=== PATIENT | female | born 1935 | race Caucasian/White ===

== ENCOUNTER 2016-10-27 07:27 | Emergency (ER) | payer MEDICARE, BC ==
[~2016-10-27] VITALS: Ht 162.6 cm; Wt 54.6 kg
[~2016-10-27 07:27] MED LIST: HYDR-3995 PO; OPDIVO; YERVOY
[2016-10-27 07:31] VITALS: Ht 162.6 cm; Wt 54.6 kg
--- OUTSIDE RECORDS SUMMARY | 2016-10-27 07:31 | XMS REPORT | Continuity of Care Document ---
Author Author [facility] Organization [facility] Address Unknown Phone Unavailable Support Name Relationship Address Phone LEYDA MILLER MD Caregiver [address] [place] [address] Unavailable GISELE ELDRIDGE FACS, MD Caregiver [address] [place] [address] [place] [address] Unavailable ALVA SPEARS Next Of Kin Unknown [phone] C Insurance Providers Guarantor Myra Huerta Address [address] [address] Email DENIED/NO TO PT PORT Payer [facility] Policy Number [id number] Subscriber's Name DeannaCharlesMyra J Relationship 18 Self Group Number [id number] Effective Date 08 Payer Medicare Policy Number [id number] Subscriber's Name Charles Huertalinoel Mckeon Relationship 18 Self Effective Date 99 Advance Directives Directive Response Recorded Date/Time Ordered Resuscitation Status Full Code 03/05/16 2:54pm Resuscitation Documents on File No 03/06/16 10:04am DPOA for Healthcare Only Yes 03/06/16 10:04am Living Will Yes 03/06/16 10:04am Problems No problem information available. Medications Current Home Medications Medication Dose Units Route Directions Days Qty Instructions Start Date Hydrocodone/Acetaminophen (Hydrocodon-Acetaminophn 10-325) 10-325 Tablet 1 Tab Oral Every 4 Hours Prn 60 03/05/16 Opdivo Every 2 Weeks 03/06/16 Yervoy 03/06/16 Social History Social History Problem Response Recorded Date/Time Onset Date Status Reason for Hospitalization POWER PORT PLACEMENT 03/06/2016 12:52pm Not Applicable Not Applicable Chewing Tobacco Status No 03/06/2016 10:19am Not Applicable Not Applicable Hx Substance Use No 03/06/2016 10:19am Not Applicable Not Applicable Hx Alcohol Use No 03/06/2016 10:19am Not Applicable Not Applicable Has the pt used tobacco in the last 12 months Yes 03/06/2016 10:19am Not Applicable Not Applicable Query Response Start Date Stop Date Smoking Status Former smoker Hospital Discharge Instructions Instructions: Care Instructions: I was in the hospital because (patient own words): "place a catheter in my chest" Discharge Diet: regular Discharge Activity: As tolerated. May shower Follow Up Appointments: Follow up with Jade Mazin ROLAND March 17 at 10:00 Pending Lab / Results: No Pending Lab Expected Signs/Symptoms: tenderness over the port, occasional bruising. Notify Physician If: 1. Call your surgeon if you are having problems relating to your surgery at [phone]. 2. Problems such as: Temp above 101.5 degrees You develop redness, excessive swelling of the incision, increasing pain or excessive foul smelling drainage. 3. If the office is closed, call [facility] at [phone] and have your Surgeon paged. During Business Hours:: Call your surgeon at at [phone]. After Business Hours:: If the office is closed, call [facility] at [phone] and have your Surgeon paged. Pain Management/Treatment: Follow prescriptions as prescribed Wound/Incision Care: Leave incision open to air. Do not rub or pick off the glue. Condition at time of discharge: Good Plan of Care Discharge Date 03/06/16 12:20pm Instructions/Education Provided DI for Implanted Venous Access Port Prescriptions See Medication Section Functional Status Query Response Date Recorded Ability to complete ADL's impeded by No change March 06, 2016 10:04am Allergies, Adverse Reactions, Alerts No known allergies. Immunizations Query Response on File Recorded Date/Time Hx Influenza Vaccination No 03/06/16 10:19am Hx Pneumococcal Vaccination No 03/06/16 10:19am Hx Influenza Vaccination No 03/06/16 10:19am Vital Signs Acute Vital Signs Vital Response Date/Time Temperature (Fahrenheit) 97.2 deg F (96.8 - 99.1) 03/06/2016 12:35pm Temperature (Calculated Celsius) 36.52565 degrees C (36.0 - 37.3) 03/06/2016 12:35pm Temperature Source Temporal 03/06/2016 12:35pm Pulse Rate (adult) 80 bpm (60 - 100) 03/06/2016 1:05pm Respiratory Rate 15 breaths/min (10 - 20) 03/06/2016 1:05pm O2 Sat by Pulse Oximetry 92 % (90 - 100) 03/06/2016 1:05pm Oxygen Delivery Method Room Air 03/06/2016 1:05pm Blood Pressure 135/65 mm Hg 03/06/2016 1:05pm Blood Pressure Source Automatic Cuff 03/06/2016 1:05pm Height (Feet) 5 feet 03/06/2016 9:40am Height (Inches) 4.00 inches 03/06/2016 9:40am Weight (Kilograms) 46.500 kg 03/06/2016 9:40am Body Mass Index (BMI) 17.6 03/06/2016 9:40am Results Laboratory Results Test Name Result Units Flags Reference Collection Date/Time Result Date/ Time Comments White Blood Count 7.5 T/MM3 4.5-11.0 03/06/2016 9:47am 03/06/2016 9: 54am Red Blood Count 4.73 M/MM3 4.00-5.20 03/06/2016 9:47am 03/06/2016 9: 54am Hemoglobin 12.4 GM/DL 12-16 03/06/2016 9:47am 03/06/2016 9:54am Hematocrit 40.2 % 36-46 03/06/2016 9:47am 03/06/2016 9:54am Mean Corpuscular Volume 85.0 UM3 80-100 03/06/2016 9:47am 03/06/2016 9: 54am Mean Corpuscular Hemoglobin 26.2 UUG 26-34 03/06/2016 9:47am 2015 9:54am Mean Corpuscular Hemoglobin Concent 30.8 GM/DL L 31-37 03/06/2016 9:47am 03/06/2016 9:54am RDW Standard Deviation 41.9 FL 36.9-50.2 03/06/2016 9:47am 03/06/2016 9 :54am Platelet Count 331 T/MM3 130-400 03/06/2016 9:47am 03/06/2016 9:54am Mean Platelet Volume 10.6 UM3 9.4-12.4 03/06/2016 9:47am 03/06/2016 9: 54am Neutrophils (%) (Auto) 71.7 % H 33-66 03/06/2016 9:47am 03/06/2016 9: 54am Lymphocytes (%) (Auto) 14.5 % L 23-45 03/06/2016 9:47am 03/06/2016 9: 54am Monocytes (%) (Auto) 8.6 % 0-9.0 03/06/2016 9:47am 03/06/2016 9:54am Eosinophils (%) (Auto) 4.0 % 0-4 03/06/2016 9:47am 03/06/2016 9:54am Basophils (%) (Auto) 1.1 % 0-2 03/06/2016 9:47am 03/06/2016 9:54am Immature Granulocyte % (Auto) 0.1 % 0.0-0.5 03/06/2016 9:47am 2015 9:54am Absolute Neutrophils (auto) 5.3 T/MM3 1.8-7.7 03/06/2016 9:47am 2015 9:54am Absolute Lymphocytes (auto) 1.1 T/MM3 1-4.8 03/06/2016 9:47am 2015 9:54am Absolute Monocytes (auto) 0.6 T/MM3 0-0.8 03/06/2016 9:47am 03/06/2016 9:54am Absolute Eosinophils (auto) 0.3 T/MM3 0-0.5 03/06/2016 9:47am 2015 9:54am Absolute Basophils (auto) 0.1 T/MM3 0-0.2 03/06/2016 9:47am 03/06/2016 9:54am Absolute Immature Granulocyte (auto 0.01 T/MM3 0.00-0.03 03/06/2016 9: 47am 03/06/2016 9:54am Name: MYRA HUERTA Unit #: [id number] : 1935 Sex: F Admit Date: Loc / Svc: NSC Discharge Date: DIAGNOSTIC IMAGING REPORT Report #: [id number] [facility] [place] Indication: ITS.REASON: POWER PORT INSERTION PROCEDURE: PORTACATH W FLUORO W 1V CXR: Encounter: Initial Comparison: Chest CT dated December 03, 2015 Findings: New right internal jugular approach central venous port catheter in place with the tip projecting over the mid SVC. No pneumothorax. Large area of consolidation in the superior segment left lower lobe due to a mass better seen on the prior CT. The remaining lung mcconnell are clear. No pleural effusion. Heart size is normal. Left hilar prominence due to the mediastinal adenopathy. Impression: New right IJ port as above. . Procedures Procedure Status Date Provider(s) BONE IMAGING WHOLE BODY Completed 12/16/15 [id number]"TECHNETIUM TC-99M MEDRONATE, DIAGNOSTIC, PER STUDY DO Completed Insertion of vascular catheter Completed 03/06/16 GISELE ELDRIDGE MD, FACS , CWS Encounters Encounter Location Arrival/Admit Date Discharge/Depart Date Attending Provider Departed Surgical Day Care [facility] 03/06/16 9:25am 03/06/16 12 :20pm GISELE ELDRIDGE FACSS Registered [facility] 12/16/15 8:11am ERYN AL MD
--- OUTSIDE RECORDS SUMMARY | 2016-10-27 07:31 | XMS REPORT | Referral Summary ---
Author Author [facility] Organization [facility] Address Unknown Phone Unavailable Care Team Providers Care Video Clerk Name Role Phone Matthew Miller Primary Care Physician [phone] Encounter VC Date(s): 03/17/16 - 03/17/16 [facility] [address] [place] [address] [place] [id number] Discharge Diagnosis: Post-operative state Discharge Disposition: 01-Home or Self Care Attending Physician: Jade Retana APRN Admitting Physician: Jade Retana APRN Vital Signs Most recent to 1 oldest [Reference Range]: Temperature Tympanic 36.4 degC [36.6-38.1 degC] *LOW* (03/17/16 10:06 AM) Problem List Condition Effective Dates Status Health Status Informant Lung Active cancer(Confirmed) Nausea(Confirmed) Active Allergies, Adverse Reactions, Alerts No Known Medication Allergies Medications Opdivo 10 mg/mL intravenous solution See Instructions, IV q2wk UNKNOWN DOSE, 0 Refill(s) Start Date: 02/18/16 Status: Ordered Vitamin D3 1,000 Intl_Units, Oral, Daily, 0 Refill(s) Start Date: 02/18/16 Status: Ordered Xgeva 120 mg/1.7 mL subcutaneous solution 120 mg 1.7 mL, SubCutaneous, q4wk, # 1.7 mL, 0 Refill(s) Start Date: 02/18/16 Status: Ordered Yervoy See Instructions, 10 mg/kg IV q 2 WEEKS, 0 Refill(s) Start Date: 02/18/16 Status: Ordered Results No data available for this section Immunizations No data available for this section Procedures Procedure Date Related Diagnosis Body Site Insertion of implantable venous access port1 03/06/16 Hysterectomy 1995 1lung cancer Social History Social History Type Response Smoking Status Former smoker; Number of years: 49 Assessment and Plan Extracted from: Title: Office Visit Note Author: Jade Retana CAR TRACER Date: 03/17/16 Assessment/Plan 1.Post-operative state Port site looks great. Continue with oncology careas directed and follow-up with us on a when necessary basis. Ordered: Postoperative Est [id number]
--- OUTSIDE RECORDS SUMMARY | 2016-10-27 07:31 | XMS REPORT | Referral Summary ---
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, bronchus and lung Discharge Disposition: 01-Home or Self Care Attending Physician: Ayaz Kraft MD Admitting Physician: Ayaz Kraft MD Referring Physician: Louie Al MD Vital Signs Most recent to 1 oldest [Reference Range]: Temperature Tympanic 36.3 degC [36.6-38.1 degC] *LOW* (02/18/16 4:15 PM) Peripheral Pulse 88 bpm Rate [60-100 bpm] (02/18/16 4:15 PM) Blood Pressure 102/54 mmHg [90-140/60-90 mmHg] (02/18/16 4:15 PM) Problem List Condition Effective Dates Status Health Status Informant Lung Active cancer(Confirmed) Nausea(Confirmed) Active Allergies, Adverse Reactions, Alerts No Known Medication Allergies Medications Misc Prescription TAKES 2 PILLS NEEDED FOR BOWELS UNKNOWN MED., 0 Refill(s) Start Date: 02/18/16 Status: Ordered multivitamin Daily, 1 QD, 0 Refill(s) Start Date: 02/18/16 Status: Ordered [place] 10 mg-325 mg oral tablet 1 tabs, Oral, q6hr, as needed for pain, DR. AL, 0 Refill(s) Start Date: 02/18/16 Status: Ordered Opdivo 10 mg/mL intravenous solution See Instructions, [...] Procedures Procedure Date Related Diagnosis Body Site Hysterectomy 1995 Social History Social History Type Response Smoking Status Former smoker; Number of years: 49 Assessment and Plan Extracted from: Title: Office Visit Note Author: Ayaz Kraft MD Date: 02/18/16 Assessment/Plan 1.Lung cancer, Neoplasm of uncertain behavior of trachea, bronchus and lung Ordered: Office Visit Level 4 New [id number] Plan: Insertion of Power PortCatheter: I did review the patient's chart including a note from her oncologist from January 29, 2016. I informed the patient that I would concur that she would benefit from placement of a power port catheter to facilitate herongoing chemotherapy. I showed the patient an actual Power Port catheter for illustration purposes. I discussed with the patientand her daughters in detail what insertion of a power port catheter entailed and its associated risks including but not inclusive of bleeding, infection, and potential for pneumothorax. The patient understood and was subsequently scheduled for placement of Power Port.
[2016-10-27] MEDS ORDERED: CALCIUM (07:39)
[2016-10-27] MEDS ORDERED: MAGN400C PO (07:39)
[2016-10-27] MEDS ORDERED: CHOL400C7 (07:39)
[2016-10-27] MEDS ORDERED: ONDANSETRON 4mg/2ml INJECTION IV ONE (08:15)
[2016-10-27] MEDS ORDERED: NORMAL SALINE 500 ML IV ONE (08:15)
[2016-10-27 08:28] LABS: HCT - HEMATOCRIT 31.8 % (36-46); HGB - HEMOGLOBIN 9.9 GM/DL (12-16); MEAN CORPUSCULAR HGB 27.5 UUG (26-34); MEAN CORPUSCULAR HGB CONC(MCHC 31.1 GM/DL (31-37); MEAN CORPUSCULAR VOLUME 88.3 UM3 (80-100); MEAN PLATELET VOLUME 10.4 UM3 (9.4-12.4); WBC - WHITE BLOOD COUNT 8.7 T/MM3 (4.5-11.0)
[2016-10-27] MEDS ORDERED: FENTANYL 100mcg/2ml INJECTION IV ONE ×2 (08:30→09:30)
[2016-10-27 08:38] LABS: ALBUMIN 4.1 G/DL (3.5-5.0); ALBUMIN/GLOBULIN RATIO 1.2 RATIO (1.1-2.2); ALKALINE PHOSPHATASE 76 U/L (38-126); ALT (SGPT) 35 U/L (9-52); ANION GAP 15 MEQ/L (5-15); AST (SGOT) 23 U/L (14-36); BUN/CREATININE RATIO 19 RATIO (6-26); CALCIUM 9.3 MG/DL (8.4-10.2); CHLORIDE 99 MEQ/L (98-107); CO2 - CARBON DIOXIDE 28 MEQ/L (22-30); CREATININE 1.2 MG/DL (0.7-1.2); GLOMERULAR FILTRATION RATE 43; GLUCOSE 162 MG/DL (65-110); LIPASE 50 U/L (23-300); POTASSIUM 3.9 MEQ/L (3.6-5); SODIUM 142 MEQ/L (134-144); TOTAL PROTEIN 7.5 G/DL (6.3-8.2)
--- NOTE | 2016-10-27 08:41 | NUR ---
STATUS NAUSEA GONE AFTER ZOFRAN. PAIN IMPROVING AT 3/10 AFTER FENTANYL. O2 STARTED FOR LOW SAO2. UP TO 96 % AFTER O2 STARTED
--- NOTE | 2016-10-27 08:50 | NUR ---
ACTIVITY UP TO COMMODE
[2016-10-27 08:57] LABS: BAND NEUTROPHILS # 0.1 T/MM3; LYMPHOCYTES # (MANUAL) 0.5 T/MM3 (1-4.8); MONOCYTES # (MANUAL) 0.6 T/MM3 (0-0.8); NEUTROPHILS #(MANUAL)-ABSOLUTE 7.5 T/MM3 (1.8-7.7); TOTAL CELLS COUNTED 100 %
--- NOTE | 2016-10-27 09:03 | NUR ---
TO CT PER CART
[2016-10-27 09:20] LABS: COLOR,URINE RED (YELLOW); LEUKOCYTE ESTERASE ,URINE NEGATIVE (NEGATIVE); NITRITE,URINE NEGATIVE (NEGATIVE); UROBILINOGEN,URINE NORMAL (NORMAL)
[2016-10-27 09:21] LABS: BLOOD, URINE 3+ (NEGATIVE)
[2016-10-27 09:22] LABS: RBC,URINE TNTC /HPF (0-3); WBC CLUMPS,URINE NONE SEEN; WBC,URINE NONE SEEN /HPF (0-5)
[2016-10-27 09:23] LABS: BACTERIA,URINE NONE SEEN (NEGATIVE); SQUAMOUS EPITHELIAL CELL,UR NONE SEEN
--- NOTE | 2016-10-27 09:25 | DI ---
Indication: ITS.REASON: Right flank pain with hematuria for two weeks PROCEDURE: CT RENAL W/O CONTRAST: Encounter: Initial Comparison: Chest CT dated December 03, 2015 Technique: Axial CT images were performed through the abdomen and pelvis without intravenous contrast. Coronal and sagittal two-dimensional reformats. Automated Exposure Control and Iterative Reconstruction dose reducing techniques were utilized. Findings: Significant airspace consolidation in the left lower lobe with a small pleural effusion and air bronchograms. Right middle lobe airspace consolidation as well peripherally. Heart size is mildly enlarged. Trace pericardial effusion. The unenhanced liver is grossly normal. Stone debris in the gallbladder. The spleen, pancreas and adrenal glands are grossly normal. Left kidney is within normal limits. Right kidney shows severe hydronephrosis with high attenuation material in the collecting system consistent with hemorrhage. There is a 3 to 4 mm lower pole area stone. Perinephric stranding. Dense material seen throughout the right ureter into the bladder consistent with hemorrhage. Bladder shows no focal wall thickening. Uterus is absent. No evidence of a bowel obstruction. Bone windows show degenerative changes in the spine. Impression: 1. Left lower and right middle lobe consolidation could be due to pneumonia. 2. Significant right hydronephrosis with evidence of acute hemorrhage in the right renal collecting system. Etiology for the hemorrhage is unclear and could be spontaneous, due to trauma or potentially mass/metastasis. Urologic evaluation is recommended. .
--- NOTE | 2016-10-27 09:35 | NUR ---
DR AGUILERA IN
--- NOTE | 2016-10-27 09:37 | ERPDOC ---
Departure Disposition Decision Date: October 27, 2016 Disposition Decision Time: 10:00 Disposition: 02 TO [facility] Impression Impression Impression: Primary Impression: Hematuria Additional Impression: Pneumonia Pneumonia type: due to unspecified organism Laterality: unspecified laterality Lung location: unspecified part of lung Qualified Codes: J18.9 - Pneumonia, unspecified organism Severity: Moderate Condition: Improved Seen By: Physician only Referrals: LEYDA TRACEY MD (Family) Problems/Meds/Labs Reviewed?: Yes Medications reviewed and manag: Yes Follow up care ordered?: Yes Mental Status: Alert, Oriented HPI - General Medical General Chief Complaint: Flank Pain Stated Complaint: URINATING BLOOD, RIGHT SIDE PAIN Time Seen by Provider: 07:28 Source: patient Exam Limitations: no limitations HPI - General Medical Initial Comments 81-year-old female presents to the emergency department with a chief complaint of blood in her urine and right sided flank discomfort. Patient noted onset of symptoms intermittently over the past couple of weeks. Symptoms increased 3 days ago and been persistent in nature since. Pain is moderate. No radiation. Pain is dull. She does not note any exacerbating or remitting factors. Patient is not anticoagulated. She denies any other complaints or associated symptoms. She was at home when her symptoms began. Symptoms have been persistent in nature since onset. Patient currently is on chemotherapy treatment for lung cancer. Occurred At: home Onset: Gradual Allergies: Coded Allergies: No Known Allergies (Unverified , 03/06/16) Past History Patient Surgical History Port placement Past Medical History Metabolic: cancer Family History Family History: Negative Vaccines Hx Influenza Vaccination: No Hx Pneumococcal Vaccination: No Social History Smoking Status: Never smoker Does patient use chewing tobac: No Second Hand Exposure: No Substance Use Type: does not use Alcohol Intake: none Review of Systems Constitutional Constitutional: DENIES: chills, fever Eyes General: DENIES: erythema, exudate Lids/Accessories: DENIES: erythema, swelling Vision: DENIES: acuity, blurring ENMT Ears: DENIES: drainage, erythema Hearing: DENIES: hearing loss Balance: DENIES: ataxia, falling to one side Sinuses: DENIES: congestion, pain Nose: DENIES: nosebleeds, pain Mouth/Throat: DENIES: painful swallowing, sore throat Teeth: DENIES: pain Jaw: DENIES: pain Cardiovascular Cardiac: DENIES: chest pain, dyspnea on exertion Rhythm/Rate: DENIES: irregular beat, palpitations Vascular: DENIES: pedal edema, unilateral swelling Pulmonary Respiratory: DENIES: cough, dyspnea, pleuritic chest pain, sputum GI Upper Abdomen: DENIES: nausea, pain, vomiting Lower Abdomen: DENIES: diarrhea, pain General: hematuria, DENIES: dysuria Musculoskeletal General: DENIES: joint pain, tenderness Integumentary Skin: DENIES: itching, rash Neurological General: DENIES: change in strength, headache, numbness, weakness Psychiatric Psychiatric: DENIES: emotional instability, suicidal ideation/attempt Endocrine Endocrine: DENIES: polydipsia, polyphagia Hematologic/Lymphatic Hematologic/Lymphatic: DENIES: frequent nosebleeds, lymphadenopathy Allergic/Immunological Allergic/Immunoligical: DENIES: allergic reactions, hives Physical Exam General General Nourishment: well nourished, well developed, appears stated age, no acute distress, adult General Body Habitus: well groomed Vitals and Pain First Documented Vital Signs Date Time Temp Pulse Resp B/P Pulse Ox O2 Delivery O2 Flow Rate FiO2 10/27/16 07:31 98.1 87 16 186/95 95 Room Air 10/27/16 08:41 2.00 Weight: Kilograms: 54.600 Height (feet): 5 Height (inches): 4.00 Triage Pain Scale: RN VS reviewed by Provider: Yes Normal Exams: Head: Normocephalic w/o trauma Eyes: Pupils are PERRLA w/ EOMI, No scleral icterus, irritation, or foreign bodies noted ENMT: No facial trauma, nasal exudates, pharyngeal erythema, or exudates are noted Dental: No fractured, loose, or missing teeth noted Neck: Full range of motion, without adenopathy, JVD, bruits or thyromegaly Chest/Resp: Clear all mcconnell, with good airflow, and symmetry bilaterally CV: Regular rate and rhythm, without murmur or gallop, Pulses 2+ all extremities, capillary refill, <2 seconds all ext., no pedal edema noted Abdomen: Bowel sounds positive, soft, non-tender, non-distended, no hepatosplenomegaly, masses or bruits noted Lymphatic: No lymphadenopathy, or lymphedema noted Musculoskeletal: No tenderness, or deformity noted, good range of motion, all extremities Integumentary: No rashes, hives, or bruising noted, hair and nails, without abnormality Neurologic: Patient is alert, and oriented, cranial nerves, motor/sensory/ cerebellar, exams w/o gross deficits, to observation Psychiatric: Patient exhibits, appropriate attention, emotion and affect Differential Diagnoses Considering: Medication Effect, Metabolic, UTI, Other (renal stone) Progress Results/Orders Orders Procedure Category Date Status Time Cbc W/Auto LAB 10/27/16 Complete Diff-Reflex Manual Cmp - Comprehensive LAB 10/27/16 Complete Metabolic Lipase LAB 10/27/16 Complete EKG EKG 10/27/16 Taken Iv Lock (Ed Only) EDM 10/27/16 Transmitted 08:06 Ondansetron Inj PHA 10/27/16 Complete (Zofran) 08:15 Normal Saline (Ns) PHA 10/27/16 Complete 08:15 Fentanyl (Fentanyl) PHA 10/27/16 Complete 08:30 Ct Renal W/O Contrast CT 10/27/16 Resulted 08:56 UA, LAB 10/27/16 Complete Dip&Micro(Complete) & 08:45 Fentanyl (Fentanyl) PHA 10/27/16 Complete 09:30 Blood Culture MICHEL 10/27/16 In Process 10:07 Lactate - Lactic Acid LAB 10/27/16 Complete Procalcitonin LAB 10/27/16 Complete 10:07 Levofloxacin 750 Mg PHA 10/27/16 Complete Ivpb (Levaquin 750 M 11:00 Lab Results Laboratory Tests Test 10/27/16 08:22 10/27/16 08:45 10/27/16 10:19 White Blood Count 8.7T/MM3 Red Blood Count 3.60M/MM3 Hemoglobin 9.9GM/DL Hematocrit 31.8% Mean Corpuscular Volume 88.3UM3 Mean Corpuscular Hemoglobin 27.5UUG Mean Corpuscular Hemoglobin Concent 31.1GM/DL RDW Standard Deviation 44.6FL Platelet Count 250T/MM3 Mean Platelet Volume 10.4UM3 Immature Granulocyte % (Auto) % Neutrophils (%) (Auto) % Lymphocytes (%) (Auto) % Monocytes (%) (Auto) % Eosinophils (%) (Auto) % Basophils (%) (Auto) % Absolute Immature Granulocyte (auto T/MM3 Absolute Neutrophils (auto) T/MM3 Absolute Lymphocytes (auto) T/MM3 Absolute Monocytes (auto) T/MM3 Absolute Eosinophils (auto) T/MM3 Absolute Basophils (auto) T/MM3 Neutrophils % (Manual) 86.0% Band Neutrophils % 1.0% Lymphocytes % (Manual) 6.0% Monocytes % (Manual) 7.0% Absolute Neutrophils (Manual) 7.5T/MM3 Band Neutrophils # 0.1T/MM3 Lymphocytes # (Manual) 0.5T/MM3 Monocytes # (Manual) 0.6T/MM3 Red Cell Morphology Comment Normal Turbidity < 20 Sodium Level 142MEQ/L Potassium Level 3.9MEQ/L Chloride Level 99MEQ/L Carbon Dioxide Level 28MEQ/L Anion Gap 15MEQ/L Blood Urea Nitrogen 23.0MG/DL Creatinine 1.2MG/DL Glomerular Filtration Rate Calc 43 BUN/Creatinine Ratio 19RATIO Glucose Level 162MG/DL Calculated Osmolality 281MOSM/KG Calcium Level 9.3MG/DL Total Bilirubin 0.60MG/DL Icterus Index < 2 Aspartate Amino Transf (AST/SGOT) 23U/L Alanine Aminotransferase (ALT/SGPT) 35U/L Alkaline Phosphatase 76U/L Total Protein 7.5G/DL Albumin 4.1G/DL Globulin 3.4G/DL Albumin/Globulin Ratio 1.2RATIO Lipase 50U/L Chemistry Specimen Hemolysis < 15 Urine Collection Type Urine Color Red Urine Turbidity Cloudy Urine pH 6.0 Urine Specific [place] 1.010 Urine Protein Trace Urine Glucose (UA) Negative Urine Ketones Negative Urine Blood 3+ Urine Nitrite Negative Urine Bilirubin Negative Urine Urobilinogen NormalEU/DL Urine Leukocyte Esterase Negative Urine RBC Tntc/HPF Urine WBC None seen/HPF Urine WBC Clumps None seen Urine Squamous Epithelial Cells None seen Urine Bacteria None seen Urine Culture Indicated Cult not indicated Plasma Lactate 0.7MMOL/L Procalcitonin < 0.05NG/ML Medications Current ED Medications Ondansetron HCl 4 mg 4 mg O ONCE IV Last administered on 10/27/16 08:31; Start 10/27/16 at 08:15; Stop 10/27/16 at 08:16; Status DC Sodium Chloride (NS) 500 ml @ 999 mls/hr Q31M ONCE IV Last administered on 08:30; Start 10/27/16 at 08:15; Stop 10/27/16 at 08:45; Status DC Fentanyl (Fentanyl) 25 mcg O ONCE IV Last administered on 10/27/16 08:34; Start 10/27/16 at 08:30; Stop 10/27/16 at 08:31; Status DC Fentanyl 25 mcg 25 mcg O ONCE IV Last administered on 10/27/16 09:32; Start 10/27/16 at 09:30; Stop 10/27/16 at 09:31; Status DC Levofloxacin/ Dextrose/Water (LEVAQUIN 750 mg IVPB/D5W) 150 ml @ 100 mls/hr O ONCE IV Last administered on 10/27/16 11:06; Start 10/27/16 at 11:00; Stop at 12:16; Status DC Progress Progress Labs / imaging were discussed in detail with the patient and family and questions are answered. Patient is given analgesic pain medication. She is given IV hydration. She is given parental antiemetic medication with improvement of symptoms. She is started on Levaquin 750 mg IV times one after the CT is reviewed and sepsis is considered at 1059. Patient is discussed with Dr. Mendiola who is not comfortable keeping the patient at [facility] due to lack of urology coverage. His recommendation is to transfer the patient to [facility]. Patient and family are in agreement with the current plan of management. Patient is transferred in improved condition. She is in agreement with the current plan of management. Risk versus benefit of transfer was discussed in detail with the patient and family and questions are answered. Patient is accepted by Dr. Unique Marcial at [facility]. No further orders from accepting physician who is in agreement with the current plan of management. EKG EKG : Rate: 60-100 Rhythm: sinus [place]: normal QRS: RBBB ST/T: normal Interpreted by: signing physician CT CT : CT: Abd/Pelvis no contrast Interpretation: Abnormal (suspicious findings for bilateral pneumonia. Hemorrhage of the urinary tract with unknown cause.) IMELDA AGUILERA DO October 27, 2016 09:37
[2016-10-27] MEDS ORDERED: LEVOFLOXACIN 750 mg IVPB 750 MG in D5W 150 ML IV ONE (11:00)
--- NOTE | 2016-10-27 11:16 | NUR ---
[facility] NURSE CONTACTED [facility] TO CALL REPORT. REQUESTED TO CALL BACK IN FEW MINUTES
--- NOTE | 2016-10-27 11:30 | NUR ---
PHONE REPORT TO BRIDGER VILLASEÑOR. PT WILL GO TO [phone]
[2016-10-27 11:47] VITALS: BP 198/82; PULSE 78; RESP 16; TEMP 99; O2SAT 99
--- NOTE | 2016-10-27 11:47 | NUR ---
[facility] PER [facility]
== END 2016-10-27 11:47 | disposition short-term general hospital (02) ==
LOC: ED 07:27
DX: R31.9 Hematuria, unspecified (principal); J18.9 Pneumonia, unspecified organism
CPT/HCPCS: 36415; 74176; 80053; 81001; 83605; 83690; 84145; 85025; 87040; 93005; 96361; 96365; 96375; 96376; 99285; J1956; J2405; J3010; J7060

== ENCOUNTER 2017-12-02 10:55 | Inpatient (IN) ==
[2017-12-02] MEDS ORDERED: NS 1,000 ML IV SCH (11:30)
--- NOTE | 2017-12-02 11:36 | Emergency Department Report ---
GI Bleed HPI - General Chief complaint: Medical Emergency Stated complaint: blood testing Time Seen by Provider: 12/02/17 11:17 Source: patient, family, RN notes reviewed, old records reviewed, other ( Oncologist) Mode of arrival: ambulatory Limitations: no limitations - History of Present Illness HPI Narrative: 82yo woman presents to the ER for evaluation of dyspnea. Pts friend has been helping her get up/around. Today, while getting to the bathroom, pt became severely tachypneic and dyspneic. Pt is being treated with chemo by Dr. Rushing for lung cancer. Six weeks ago, she was admitted to the hospital for txfusion of 3units PRBCs. Pts friends called Dr. Rushing's office, then brought her to the ER for further evaluation. On further review, pt has had melena and 'bloody diarrhea' several times over the past few days. MD complaint: melena, gross hematochezia Onset (ago): day(s) Consistency: intermittent Severity: similar to previous episodes Relieving factors: rest Exacerbating factors: movement Context: history of GI bleed Associated symptoms: weakness Treatments Prior to Arrival: none - Related Data Home Medications Medication Instructions Recorded Confirmed folic acid 1 mg tablet 1 mg PO DAILY 07/29/17 12/02/17 Allergies Allergy/AdvReac Type Severity Reaction Status Date / Time No Known Allergies Allergy Verified 12/02/17 11:41 Review of Systems All systems: reviewed and negative except as stated Constitutional: Reports: as per HPI, weakness. Denies: fever, chills, weight change, night sweats Gastrointestinal: Reports: as per HPI, melena, hematochezia. Denies: abdominal pain, nausea, vomiting, diarrhea, constipation, hematemesis PFS Patient Stated Medical History Transient Ischemic Attacks ( Yes: RECALLED IN PAST MEDICAL; PT DENIES TIA) Cataracts Yes: bilateral Heart Murmur Yes: RECALLED IN PAST MEDICAL; PT DENIES Sleep Apnea No Anemia Yes: CHEMO TREATMENT RELATED Blood Disorders Yes: low platelet r/t Chemo Shingles Yes Chemotherapy Yes Clinic Medical History (Last Reviewed 09/21/17 @ 10:11 by Tara France) AMD (age related macular degeneration) (Acute Medical) Cataracts, both eyes (Acute Medical) Hypercholesteremia (Chronic Medical) Lung cancer (Chronic Medical) diagnosed in 2016, sees (port-a-cath, treatment every other Wedn), states she is in a study Surgical History: Hysterectomy (2001). Appendectomy (2001). Right cataract removal: 09/15/17 Family History: Family History (Last Reviewed 09/21/17 @ 10:11 by Tara France) Father , age 67 Cancer of lung Mother No problems noted. Unknown , 4 healthy siblings age 40 (MVA) No problems noted. - Social History Smoking status: Former smoker second hand exposure: No Alcohol intake frequency: does not drink Current occupational status: retired Does patient use chewing tobacco?: No Physical Exam - Limitations Limitations: no limitations - General General appearance: alert, in no apparent distress, cachectic - Head Head exam: atraumatic, normocephalic, normal inspection - Eye Eye exam: Present: normal appearance, PERRL, EOMI. Absent: scleral icterus - ENT ENT exam: Present: normal exam, normal oropharynx, mucous membranes moist, normal external ear exam - Neck Neck exam: Present: normal inspection, full ROM, trachea midline. Absent: tenderness, lymphadenopathy - Chest Chest inspection: Present: normal inspection, symmetric chest wall rise. Absent : tenderness, rash - Respiratory Respiratory exam: Present: normal lung sounds bilaterally. Absent: respiratory distress, wheezes, stridor, prolonged expiratory phase, crackles - Cardiovascular Cardiovascular exam: Present: normal rhythm, tachycardia, normal heart sounds. Absent: rubs, gallop, clicks - Abdominal Exam Abdominal exam: Present: soft, normal bowel sounds. Absent: distention, tenderness, guarding, rebound, rigidity - Extremities Exam Extremities exam: Present: normal inspection, full ROM, normal capillary refill. Absent: tenderness, pedal edema - Skin Skin exam: Present: warm, dry, intact, pallor. Absent: rash - Neurological Exam Neurological exam: Present: alert, oriented X3, CN II-XII intact, normal gait, reflexes normal - Psychiatric Psychiatric exam: Present: normal affect, normal mood Course - Consultations Consultation #1: Hospitalist: Will admit for anemia/thrombocytopenia/borderline neutropenia and PNA. Time: 12:22 GI Bleed - [facility] Narrative Medical decision making narrative: Pt to be admitted for her numerous abn blood findings and PNA. - Differential Diagnosis Likely: esophageal varices, gastritis, Upper gastrointestinal hemorrhage, Lower gastrointestinal hemorrhage, hematochezia, melena - Medical Records Attestation: I reviewed the patient's medical records. - Lab Data Attestation: I reviewed the patient's lab results. Result diagrams: 12/02/17 11:34 12/02/17 11:34 - Radiology Data Attestation: I reviewed the patient's radiology results. CXR: Impression: Right upper lobe pneumonia. Disposition Clinical Impression: Thrombocytopenia Anemia Qualifiers: Anemia type: iron deficiency Iron deficiency anemia type: chronic blood loss Qualified Code(s): D50.0 - Iron deficiency anemia secondary to blood loss ( chronic) Pneumonia Qualifiers: Pneumonia type: due to unspecified organism Laterality: right Lung location: upper lobe of lung Qualified Code(s): J18.1 - Lobar pneumonia, unspecified organism Disposition: 02 To [facility] Acute Care Print Language: Croatian Condition: Stable Prescriptions: No Action folic acid 1 mg tablet 1 mg PO DAILY Referrals: Jackelyn Horton PA [Primary Care Provider] - Time of Disposition: 12:39 - Seen By: physician
[2017-12-02] MEDS: SALINE FLUSH 10ml SYRINGE IVF PRN ×3 (11:43→21:58)
--- NOTE | 2017-12-02 12:02 | XRay Report ---
Indication: Dyspnea PROCEDURE: XR chest 1V: Encounter: Initial Comparison: Chest CT dated April 07, 2017 Findings: Emphysema with postoperative changes, scarring and volume loss in the left lung. Left hilar retraction. Right IJ port catheter in place. No pneumothorax. Right upper lobe airspace consolidation. Heart size and mediastinal contours are stable. Pulmonary vascularity appears normal. Impression: Right upper lobe pneumonia. .
[2017-12-02] MEDS ORDERED: NS 1,000 ML IV ONE (12:20)
[2017-12-02] MEDS ORDERED: LEVOFLOXACIN PB 750 MG/150 ML BAG IV SCH (12:45)
[2017-12-02] MEDS ORDERED: ONDANSETRON 4 MG/2 ML INJECTION IVP PRN (13:40)
[2017-12-02] MEDS ORDERED: BISACODYL 10 MG SUPPOSITORY RECTALLY PRN (13:40)
[2017-12-02] MEDS ORDERED: SENNA + DOCUSATE TABLET PO PRN (13:40)
--- NOTE | 2017-12-02 13:45 | History & Physical Report ---
History of Present Illness Date: 12/02/17 Chief complaint: Weak HPI: Myra Huerta is an 82 year old woman with lung cancer, diagnosed in 2016. She is on chemotherapy (unknown agent) every 3 weeks, with last round on November 22, 2017. She received a blood transfusion around 11/26/17. She typically feels very wiped out after chemo. Over the last few days, however, she's been more weak and dizzy/lightheaded. She even had to use her walker to ambulate. She was becoming more short of breath with exertion. She also had black-colored diarrhea on 12/03/17. Previously, about a month ago, she had black-colored stools but that resolved after she stopped taking extra iron tablets. She states that she's been having an intermittent occipital headache that is throbbing in nature. She took ibuprofen 600 mg every 3-4 hours on 12/01/17 (usually she takes ibuprofen 600 mg QHS). She states that she recently saw Dr. Rushing and had a brain MRI on 11/22/17, which was negative for acute findings. She also reports anorexia but interestingly has had weight gain. She denies n/v or abdominal pain. She's never had a colonoscopy or EGD. She denies chest pain or palpitations. She denies falls or syncope. She denies sinus congestion, sore throat, cough, dysphagia. She denies fever or chills, body aches or joint pain/ swelling. She denies dysuria or hematuria (though did have hematuria last year and had a right nephrostomy tube for hydronephrosis). She bruises easily with her history of low platelets. Her son and daughter also indicate that she's been slightly confused at times. Because of her increasing weakness, she presented to [facility] on 12/02/17. Her hgb was markedly low at 4.7. Platelets were 15K. WBC was only 0.9. She was hypokalemic at 3.0. CXR revealed RUL pneumonia and she was started on Levaquin. Blood transfusion was ordered. She received 2L of NS, and her HR improved from 110 to the 90s. BP was stable. Dr. Feliciano was notified and the patient was admitted to the hospitalist service as an inpatient. LOS is expected to exceed 2 overnights. Review of Systems All systems PM: 10-point ROS was reviewed, no additional remarkable complaints except - EENMT Eyes: Present: loss of vision (gradual) - Integumentary/Breasts Integumentary: Absent: rash, wounds Past Medical History Medical History: Medical History (Last Updated 12/02/17 @ 14:28 by Annette Tinsley APRN) AMD (age related macular degeneration) Cataracts, both eyes Hypercholesteremia Lung cancer diagnosed in 2016, sees Dr. Rushing Medical History Updates: Stroke 2017 small right thalamic lacunar - no deficits Surgical History: Hysterectomy (2001). Appendectomy (2001). Nephrostomy tube x 6 weeks in 2017. Right cataract removal: 09/15/17. Ear tbes 11/02/17 Dr. Calderon Family History: Family History (Last Reviewed 09/21/17 @ 10:11 by Tara France) Father , age 67 Cancer of lung Mother No problems noted. Unknown , 4 healthy siblings age 40 (MVA) No problems noted. Family History: As Above - Social History Smoking status: Former smoker (quit in 2016) Packs per day: 1 Packs-years: 45 Substance use type: does not use Alcohol intake frequency: holidays/special occasions only Current occupational status: retired Previous occupational history: seo strategist Does patient use chewing tobacco?: No Medications Home Medications Medication Instructions Recorded Confirmed Type folic acid 1 mg tablet 1 mg PO DAILY 07/29/17 12/02/17 History Allergies Allergy/AdvReac Type Severity Reaction Status Date / Time No Known Allergies Allergy Verified 12/02/17 11:41 Exam Vital Signs: Temperature 97.7 F 12/02/17 11:11 Pulse Rate 95 12/02/17 13:15 Respiratory Rate 18 12/02/17 11:11 Blood Pressure 110/53 12/02/17 11:11 Pulse Oximetry 90 12/02/17 13:15 - Constitutional Present: no acute distress, well nourished, well developed, thin - Routine HEENT Exam Head: Present: normocephalic Eye: Absent: PERRL (L pupil larger than R pupil - chronic per family), conjunctival icterus, scleral injection, conjunctivae pink (pale) ENT: Present: mucous membranes moist, oropharynx clear - Routine Neck Exam Present: supple. Absent: lymphadenopathy - Routine Respiratory Exam Present: decreased breath sounds (RUL), crackles (B/L) - Routine Cardiovascular Exam Present: RRR, S1, S2, murmur (soft systolic murmur) - Routine Abdominal Exam Present: soft, normoactive bowel sounds, non tender, distended (mild) - Routine Extremities Exam Present: no edema, pulses intact - Routine Skin Exam Present: intact, dry, pallor, warm - Routine Neurological Exam Present: alert, oriented X3, CN II-XII intact, moving all extremities, vision grossly intact, hearing grossly intact, normal speech. Absent: sensory deficit , motor deficit, altered mental status, facial asymmetry - Routine Psychiatric Exam Present: normal affect, normal thought process, cooperative Results - Labs CBC & Chem 7: 12/02/17 11:34 12/02/17 11:34 Assessment and Plan Assessment and Plan: Assessment GI bleed with symptomatic marked anemia, hgb 4.7. History of ibuprofen/ASA use. Tachycardia Severe pancytopenia and neutropenia RUL pneumonia Hypokalemia Hypomagnesemia Dizziness/Weakness Metastatic lung cancer, sees Dr. Rushing Stroke (right thalamic lacunar infarct), 2017 - no deficits - on ASA Hypercholesterolemia Former smoker Plan Admit, inpatient status, under the hospitalist service. PCP: Bebeto PALOMO Onc: Dr. Rushing (out of town currently) GI bleed/tachycardia/symptomatic anemia -already typed & crossed x2 units -will also order platelet pack -s/p 2L fluid bolus in ED: BP stable & tachycardia improved -Dr. Kraft consulted. Never had EGD/colonoscopy. -Hold ibuprofen/ASA -Clear liquid diet -trend serial hgb -IV Protonix RUL pneumonia, immunocompromised/neutropenic -Expand antibiotics to triple therapy: Vanco, Levaquin, cefepime -sputum & blood cultures -DuoNeb PRN -Neutropenic precautions Hypokalemia & Hypomagnesemia -Replace IV -Telemetry Dizziness/weakness -suspect will need PT/OT consults prior to DC Advanced Directives -Daughter & Son are DPOAs -Have had informal discussion on Living Will -Would like to be DNR in and [id number] -Provided Caring Conversation booklet Prior records reviewed. Pt critically ill. Time spent at bedside/reviewing information/formulating plan/discussing with other providers = 90 min. DVT Prophylaxis: SCD's GI Prophylaxis: Protonix Resuscitation Status: Do Not Resuscitate - Physician Narrative Physician: Yehuda Feliciano MD Narrative: Date: 12/02/17 Time: 1700 Have independently interviewed and examined pt. Chart reviewed. Case discussed with ED provider and my EQUIPMENT ASSOCIATE. Care plan developed with my supervision; agree with above. Presents to ED secondary to severe weakness. Has been feeling pretty fatigued since start of October (maybe longer), but nothing like this. Always gets achy flu like symptoms post chemo. Did have last chemo 11/23. Blood counts decreased and reviewed transfusion on 11/26, but never started to feel better. Using more NSAIDs recently. Not little cough/congestion. Not feeling SOA, but really not able to be active due to fatigue. Appetite decreases. Not much nausea. Evaluated in ED. Counts with significant decrease. CXR showing potential pneumonia. Admitted for further treatment. Lungs: decreased CV: tachy AB: soft BS decreased MSE: awake alert appropriate Plan: Inpatient admission. Will transfuse to improve HGB and Platelets. Give Granix due to Neutropenia. Triple antibiotic coverage for suspected pneumonia. Protonic IV BID due to GI bleeding. Consult with Dr Kraft for EGD. SCD for DVT prevention-no Lovenox/Heparin due to thrombocytopenia and GI bleed. DNR per her requests. Care to return to PCP at discharge. Hospital Course Summary Disclaimer: The visit summary below is not to be considered part of the above Progress Note. Hospital Course: 12/02/17 Admit, inpatient status, under the hospitalist service. PCP: Bebeto PALOMO Onc: Dr. Rushing (out of town currently) GI bleed/tachycardia/symptomatic anemia -already typed & crossed x2 units -will also order platelet pack -s/p 2L fluid bolus in ED: BP stable & tachycardia improved -Dr. Kraft consulted. Never had EGD/colonoscopy. -Hold ibuprofen/ASA -Clear liquid diet -trend serial hgb -IV Protonix RUL pneumonia, immunocompromised/neutropenic -Expand antibiotics to triple therapy: Vanco, Levaquin, cefepime -sputum & blood cultures -DuoNeb PRN -Neutropenic precautions Hypokalemia & Hypomagnesemia -Replace IV -Telemetry Advanced Directives -Daughter & Son are DPOAs -Would like to be DNR in and [id number]
[2017-12-02] MEDS: PANTOPRAZOLE 40 MG INJECTION IVP SCH ×2 (15:08→21:58)
[2017-12-02] MEDS ORDERED: NS IV ONE (15:11)
[2017-12-02] MEDS ORDERED: VANCOMYCIN - PHARMACY CONSULT MC ONE (15:11)
[2017-12-02] MEDS ORDERED: VANCOMYCIN IV ONE (15:11)
[2017-12-02] MEDS ORDERED: CEFEPIME 1 GM in NS 100 ML IV SCH (15:15)
[2017-12-02] MEDS ORDERED: ALBUTEROL/IPRATROPIUM 2.5mg-0.5mg/3ml NEB IPPB PRN (15:16)
--- NOTE | 2017-12-02 15:56 | Pharmacy Consult-Antibiotics ---
Pharmacy Consult-Vancomycin - Laboratory Information WBC 0.9 T/MM3 (4.5-11.0) L* 12/02/17 11:34 BUN 44.0 MG/DL (7-17) H 12/02/17 11:34 Creatinine 1.4 mg/dL (0.7-1.2) H 12/02/17 11:34 - Consult Information VANCOMYCIN CONSULT: Dx: Pneumonia Current Renal Fx: SCr = 1.4mg/dl. (May be related to possible dehydration) Adjusted levofloxacin and cefepime for renal function. Will adjust back if creatinine improves. Will give Vancomycin 1,250mg loading dose then 1,000 IV q24hrs. Will continue to monitor and adjust regimen to maintain therapeutic levels. Thank you.
[2017-12-02] MEDS: LIDOCAINE 1% INJ 10 MG, POTASSIUM CHLORIDE INJ 10 MEQ in NS 100 ML IV SCH ×2 (16:15→22:28)
[2017-12-02] MEDS ORDERED: PROCHLORPERAZINE 10 MG/2 ML INJECTION IVP PRN (16:59)
[2017-12-02] MEDS ORDERED: MORPHINE SULFATE 4mg INJECTION IVP PRN (17:10)
[2017-12-02] MEDS: ACETAMINOPHEN 325 MG TABLET PO PRN (18:24)
[2017-12-02] MEDS ORDERED: TBO-FILGRASTIM 480mcg/0.8ml INJECTION SQ ONE (19:13)
--- NOTE | 2017-12-02 20:21 | Consultation ---
DATE OF CONSULTATION 12/02/2017 FINDINGS Mrs. Heurta is an 82-year-old female whom I was asked to see this evening as a result of her finding of marked anemia upon laboratory evaluation. The patient' s daughter was also present this evening who provided some of the clinical history. Mrs. Huerta has had the misfortune of developing unresectable lung cancer. Daughter states that her mother was placed on a clinical trial and has been receiving numerous chemotherapy agents. Recently they state that the patient's oncologist has decreased the number of chemotherapy agents from " three to one." Mrs. Huerta informs me that she has had several episodes where her blood count has "drifted downward" requiring prior transfusions. The patient states that she has been hospitalized at [facility] "a couple of times for blood transfusions." The patient states that recently she began to feel significantly more weak and fatigued. She therefore presented for further evaluation and was found to have marked pancytopenia. The patient was admitted to our facility for further care. The patient denies any history for magaly melena nor hematochezia. She states that previously she did notice that she was having some dark stools but at that time was on iron supplementation. The patient states that as soon as she "stopped taking the iron her stools cleared up." Upon questioning the patient she denies any element of abdominal pain or discomfort. She states that she has never undergone a prior colonoscopy or EGD in the past. Patient states that she currently is "not interested in having any type of procedures." PAST MEDICAL HISTORY, PAST SURGICAL HISTORY, MEDICATIONS, ALLERGIES, SOCIAL HISTORY, FAMILY HISTORY, REVIEW OF SYSTEMS Performed by my nurse practitioner, Wayne Retana APRN. PHYSICAL EXAMINATION GENERAL: Mrs. Huerta is an 82-year-old female who this evening did not appear to be in acute distress. VITAL SIGNS: Temperature 98.5, pulse 98, respirations 16, blood pressure 164/70 , SAO2 93% on room air. HEENT: Normocephalic. Pupils are equally round and react to light and accommodation. NECK: Supple without lymphadenopathy. CHEST: Clear to auscultation bilaterally. HEART: Regular rate and rhythm. Normal S1 and S2 without gallops, murmurs or clicks. ABDOMEN: Palpation of the abdomen reveals it to be soft and nontender. I do not appreciate any evidence for hepatosplenomegaly nor abnormal masses. EXTREMITIES: Without clubbing, cyanosis, or edema. NEURO: Cranial nerves II-XII grossly intact. Patient is without focal motor or sensory deficits. LABORATORY/RADIOGRAPHIC EVALUATION The patient had a CBC upon admission and she was found to have marked pancytopenia. White count was 0.9. Hemoglobin is 4.7. Hematocrit is 14.8. The patient did have a component of thrombocytopenia with a platelet count 15, 000. INR was obtained and found to be within normal limits. PTT was slightly elevated at 39.2. CMP was obtained and her potassium was low at 3.0. BUN and creatinine were elevated at 44.0 and 1.4, respectively. Patient informs me that she does have a known "bad kidney". ASSESSMENT 82-year-old female with known history for unresectable lung cancer undergoing chemotherapy who presents with marked pancytopenia. PLAN I agree with current management of this patient. Patient is being treated empirically for peptic ulcer disease. She is receiving Protonix 40 mg IV b.i.d. She is receiving blood transfusions. The patient states that her oncologist is out of the country. One may consider giving her G-CSF, given her marked pancytopenia. At this time I did not recommend that we needed to proceed with endoscopic evaluation for her marked anemia. I do believe that her marked anemia is a side effect of her chemotherapy with resultant pancytopenia. I informed the patient that if in the future she began to experience magaly melena, hematochezia or if her hemoglobin would drift downward precipitously following transfusion, then at that time we may consider proceeding with endoscopic evaluation. It would be my recommendation that we continue with ongoing empiric treatment for peptic ulcer disease and follow the patient from a clinical and laboratory standpoint. MTDD
[2017-12-02] MEDS: MAGNESIUM SULFATE 1gm PREMIX 1 GM/100 ML BAG IV SCH ×2 (21:58→23:15)
[2017-12-02] MEDS: CEFEPIME 1 GM in NS 100 ML IV SCH ×2 (22:57→23:47)
[2017-12-03] MEDS: LIDOCAINE 1% INJ 10 MG, POTASSIUM CHLORIDE INJ 10 MEQ in NS 100 ML IV SCH ×2 (00:34→01:47)
[2017-12-03] MEDS: NS FLUSH BAG 500ml IV PRN ×3 (00:35→03:07)
[2017-12-03] MEDS: SALINE FLUSH 10ml SYRINGE IVF PRN ×2 (03:06→21:34)
[2017-12-03] MEDS: ACETAMINOPHEN 325 MG TABLET PO PRN ×4 (04:57→23:18)
[2017-12-03] MEDS: PANTOPRAZOLE 40 MG INJECTION IVP SCH ×2 (09:10→21:34)
[2017-12-03] MEDS: FOLIC ACID 1 MG TABLET PO SCH (09:10)
[2017-12-03] MEDS: CEFEPIME 1 GM in NS 100 ML IV SCH ×2 (09:10→17:00)
--- NOTE | 2017-12-03 11:36 | Progress Note ---
- Date 12/03/17 Subjective: Myra is c/o increased SOA today, worse than yesterday. She was started on 2L of oxygen last night, and this am it has been weaned down to 1L. With ambulation i.e. to the bathroom, however, her sat dropped to 84% on 1L. She states that her weakness has improved and she is able to walk with help - much improved compared to how she felt yesterday. She denies dizziness. She denies abd pain/cramps, n/v/d. She hasn't had a BM yet. Objective Vital signs: Temperature 96.6 F L 12/03/17 07:46 Pulse Rate 85 12/03/17 08:00 Respiratory Rate 18 12/03/17 07:46 Blood Pressure 141/66 H 12/03/17 07:49 Pulse Oximetry 95 12/03/17 07:49 Height/Weight/BMI: Height 1.63 m Weight 60.2 kg Body Mass Index 21.7 - Constitutional Present: no acute distress, well nourished, well developed, thin - Routine HEENT Exam Head: Present: normocephalic Eye: Absent: conjunctival icterus, scleral injection ENT: Absent: dentition normal - Routine Respiratory Exam Present: decreased breath sounds, crackles - Routine Cardiovascular Exam Present: RRR, S1, S2 - Routine Abdominal Exam Present: soft, normoactive bowel sounds, non distended, non tender - Routine Extremities Exam Present: no edema - Routine Skin Exam Present: intact, dry, pallor, warm - Routine Neurological Exam Present: alert, oriented X3, normal speech - Routine Psychiatric Exam Present: normal affect, normal thought process, cooperative Results - Labs CBC & Chem 7: 12/03/17 10:33 12/03/17 06:35 Microbiology Results: Microbiology 12/02/17 15:39 Peripheral/Iv Start Gram Stain - Final 12/02/17 15:39 Peripheral/Iv Start Blood Culture - Preliminary Streptococcus species 12/02/17 15:31 Peripheral/Iv Start Blood Culture - Preliminary Culture Initiated - Results Pending Assessment and Plan Assessment and Plan: Assessment GI bleed with symptomatic marked anemia, hgb 4.7. History of ibuprofen/ASA use. Hypoxia - sats 84% on 1L with ambulation Tachycardia - improved Severe pancytopenia and neutropenia RUL pneumonia Hypokalemia (POA) Hypomagnesemia (POA) - resolved Dizziness/Weakness Metastatic lung cancer, sees Dr. Rushing Stroke (right thalamic lacunar infarct), 2017 - no deficits - on ASA Hypercholesterolemia Former smoker Plan Hgb 6.1 following 2U PRBC -- transfuse x2 more unit. Plt improved to 22K. ANC 1360 s/p Granix yest. Dr. Kraft not recommending procedures at this time but agrees w/ empiric tx for PUD. Repeat CXR d/t hypoxia and increased dyspnea. Schedule DuoNeb QID. Cont IS. Wean O2 as able. Continue Vancomycin/Levaquin/cefepime day #2 for pneumonia. K improved to 3.4 - will give add'l oral KDur. Mg up to 1.9. D/W Dr. Feliciano. DVT Prophylaxis: SCD's GI Prophylaxis: Protonix Resuscitation Status: Do Not Resuscitate - Time spent with patient Time with patient PN: 25 minutes - Physician Narrative Physician: Yehuda Feliciano MD Narrative: Date: 12/03/17 Time: 1421 Have independently interviewed and examined pt. Chart reviewed. Case discussed with CM and my STEAM SHOVEL OILER. Care plan developed with my supervision; agree with above. Rough night-nursing in room frequently for blood and medications; slept poorly. Became quite winded this morning when coming back from bathroom. No cough/ congestion or pain with breathing, but just very short. O2 helped. Feeling less tired and washed out this afternoon. No appetite. Not feeling nausea or having ab pain. Urinating well. Lungs: decreased, scattered wheeze/rhonchi. CV: regular AB: soft nt MSE: awake alert Plan: Continue with antibiotics for pulmonary coverage. ANC increased to 1360; will continue precautions but hold on repeating Granix today - recheck ANC tomorrow. HGB with increase to 6.1--will give 2 units. Patient wanting to hold on scopes for now. Will continue with IV Protonix, add Carafate. Continue with supportive care. Hospital Course Summary Disclaimer: The visit summary below is not to be considered part of the above Progress Note. Hospital Course: 12/02/17 Admit, inpatient status, under the hospitalist service. GI bleed/tachycardia/symptomatic anemia -2U PRBC, 1 platelet pack, s/p 2L NS in ED, consult Dr. Kraft, hold ibu/ASA, IV PPI RUL pneumonia, immunocompromised/neutropenic -Vancomycin, Levaquin, cefepime - Neutropenic precautions Hypokalemia & Hypomagnesemia -Replace IV -Telemetry Advanced Directives -Daughter & Son are DPOAs -Would like to be DNR in and out- of-hospital. 12/03/17 Hgb 6.1 following 2U PRBC -- transfuse x2 more unit. Plt improved to 22K. ANC 1360 s/p Granix yesterday. Dr. Kraft not recommending procedures at this time but agrees w/ empiric tx for PUD. Will add oral Carafate to IV Protonix. Repeat CXR d/t hypoxia and increased dyspnea. Schedule DuoNeb QID. Cont IS. Wean O2 as able. Continue Vancomycin/Levaquin/cefepime day #2 for pneumonia. K improved to 3.4 - will give add'l oral KDur. Mg up to 1.9.
[2017-12-03] MEDS ORDERED: LEVOFLOXACIN PB 750 MG/150 ML BAG IV SCH (12:00)
--- NOTE | 2017-12-03 12:45 | XRay Report ---
Indication: increased SOA, f/u pneumonia PROCEDURE: XR chest 1V: Encounter: Initial Comparison: December 02, 2017 Findings: Increasing airspace consolidation in the right upper lobe. Chronic changes and scarring in the left upper lobe and left hilar area. Trace pleural effusions. No pneumothorax. Heart size and mediastinal contours are stable. Right IJ port. Impression: Increasing right upper lobe airspace disease. .
[2017-12-03 14:45] VITALS: BMI 22.8
[2017-12-03] MEDS: ALBUTEROL/IPRATROPIUM 2.5mg-0.5mg/3ml NEB AEROSOL SCH ×2 (16:48→20:16)
[2017-12-03] MEDS: SUCRALFATE 1 GM TABLET PO SCH ×2 (17:00→21:34)
[2017-12-03] MEDS ORDERED: FUROSEMIDE 20 MG/2 ML INJECTION IVP ONE (18:35)
[2017-12-04] MEDS: CEFEPIME 1 GM in NS 100 ML IV SCH ×2 (01:02→10:24)
[2017-12-04] MEDS: NS FLUSH BAG 500ml IV PRN ×2 (01:03→06:32)
[2017-12-04] MEDS: SALINE FLUSH 10ml SYRINGE IVF PRN ×3 (01:03→09:43)
[2017-12-04] MEDS: SUCRALFATE 1 GM TABLET PO SCH ×4 (06:25→22:06)
[2017-12-04] MEDS: MAGNESIUM SULFATE 1gm PREMIX 1 GM/100 ML BAG IV SCH ×2 (06:26→08:28)
[2017-12-04] MEDS: LIDOCAINE 1% INJ 10 MG, POTASSIUM CHLORIDE INJ 10 MEQ in NS 100 ML IV SCH ×2 (06:33→10:31)
[2017-12-04] MEDS: ACETAMINOPHEN 325 MG TABLET PO PRN ×3 (06:40→22:06)
[2017-12-04] MEDS: ALBUTEROL/IPRATROPIUM 2.5mg-0.5mg/3ml NEB AEROSOL SCH ×4 (07:40→20:15)
[2017-12-04] MEDS ORDERED: LIDOCAINE 1% INJ 10 MG, POTASSIUM CHLORIDE INJ 10 MEQ in NS 100 ML IV SCH (08:30)
[2017-12-04] MEDS: POTASSIUM CHLORIDE IV SCH ×3 (08:41→11:54)
[2017-12-04] MEDS: D5W IV SCH ×3 (08:41→11:54)
[2017-12-04] MEDS: LIDOCAINE IV SCH ×3 (08:41→11:54)
[2017-12-04] MEDS: PANTOPRAZOLE 40 MG INJECTION IVP SCH ×2 (09:43→22:05)
[2017-12-04] MEDS: AMLODIPINE 2.5 MG TABLET PO SCH (09:43)
[2017-12-04] MEDS: FOLIC ACID 1 MG TABLET PO SCH (09:43)
[2017-12-04] MEDS ORDERED: MAGNESIUM SULFATE 1gm PREMIX 1 GM/100 ML BAG IV SCH (11:15)
[2017-12-04] MEDS ORDERED: LEVOFLOXACIN PB 750 MG/150 ML BAG IV SCH (12:00)
[2017-12-04] MEDS ORDERED: FUROSEMIDE 20 MG/2 ML INJECTION IVP ONE (12:36)
--- NOTE | 2017-12-04 14:06 | Progress Note ---
- Date 12/04/17 Subjective: Patient says she has just been resting today. No new issues. remains on 2 liters oxygen. RN reports hearing crackles in her lungs. Getting platelets today. Objective Vital signs: Temperature 97.2 F 12/04/17 07:57 Pulse Rate 118 H 12/04/17 08:00 Respiratory Rate 22 12/04/17 12:40 Blood Pressure 161/71 H 12/04/17 08:00 Pulse Oximetry 92 12/04/17 12:40 Height/Weight/BMI: Height 5 ft 4 in Weight 59.6 kg Body Mass Index 22.8 - Constitutional Present: no acute distress - Routine Respiratory Exam Present: crackles - Routine Cardiovascular Exam Present: RRR - Routine Abdominal Exam Present: soft, non distended, non tender - Routine Extremities Exam Present: no edema - Routine Skin Exam Present: intact, dry, warm - Routine Neurological Exam Present: alert, oriented X3, CN II-XII intact Results - Labs CBC & Chem 7: 12/04/17 09:52 12/04/17 04:22 Microbiology Results: Microbiology 12/02/17 15:39 Peripheral/Iv Start Gram Stain - Final 12/02/17 15:39 Peripheral/Iv Start Blood Culture - Preliminary Enterococcus species 12/02/17 15:31 Peripheral/Iv Start Blood Culture - Preliminary No Growth After 1 Day Assessment and Plan Assessment and Plan: Assessment GI bleed with symptomatic marked anemia, hgb 4.7. History of ibuprofen/ASA use. Hypoxia - sats 84% on 1L with ambulation Tachycardia - improved Severe pancytopenia and neutropenia RUL pneumonia Hypokalemia (POA) Hypomagnesemia (POA) - resolved Dizziness/Weakness Metastatic lung cancer, sees Dr. Rushing Stroke (right thalamic lacunar infarct), 2017 - no deficits - on ASA Hypercholesterolemia Former smoker Plan Hgb improved to 9.2 today Plt back to 16K today s/p Granix 7/6 - monitor for need Dr. Kraft not recommending procedures at this time but agrees w/ empiric tx for PUD. Repeat CXR with increasing RUL airspace disease. Schedule DuoNeb QID. Cont IS. Wean O2 as able. On Vancomycin/Levaquin/cefepime day #3 for pneumonia. Blood cultures with 1/2 enterococcus species - change to vanco and merrem and await susceptibilities K and mag replaced by night staff. Repeat now and replace. Give another dose of lasix with platelets. CXR in am - Physician Narrative Narrative: Date: 12/04/17 Time: 1401 Hospital Course Summary Disclaimer: The visit summary below is not to be considered part of the above Progress Note. Hospital Course: 12/02/17 Admit, inpatient status, under the hospitalist service. GI bleed/tachycardia/symptomatic anemia -2U PRBC, 1 platelet pack, s/p 2L NS in ED, consult Dr. Kraft, hold ibu/ASA, IV PPI RUL pneumonia, immunocompromised/neutropenic -Vancomycin, Levaquin, cefepime - Neutropenic precautions Hypokalemia & Hypomagnesemia -Replace IV -Telemetry Advanced Directives -Daughter & Son are DPOAs -Would like to be DNR in and out- of-hospital. 12/03/17 Hgb 6.1 following 2U PRBC -- transfuse x2 more unit. Plt improved to 22K. ANC 1360 s/p Granix yesterday. Dr. Kraft not recommending procedures at this time but agrees w/ empiric tx for PUD. Will add oral Carafate to IV Protonix. Repeat CXR d/t hypoxia and increased dyspnea. Schedule DuoNeb QID. Cont IS. Wean O2 as able. Continue Vancomycin/Levaquin/cefepime day #2 for pneumonia. K improved to 3.4 - will give add'l oral KDur. Mg up to 1.9. 12/04/17 Hgb improved to 9.2 today Plt back to 16K today s/p Granix 7/6 - monitor for need Dr. Kraft not recommending procedures at this time but agrees w/ empiric tx for PUD. Repeat CXR with increasing RUL airspace disease. Schedule DuoNeb QID. Cont IS. Wean O2 as able. On Vancomycin/Levaquin/cefepime day #3 for pneumonia. Blood cultures with 1/2 enterococcus species - change to vanco and merrem and await susceptibilities K and mag replaced by night staff. Repeat now and replace. Give another dose of lasix with platelets. CXR in am
[2017-12-04] MEDS: MEROPENEM 500 MG in NS 50 ML IV SCH (15:31)
[2017-12-05] MEDS: MEROPENEM 500 MG in NS 50 ML IV SCH ×3 (02:23→18:07)
[2017-12-05] MEDS: ACETAMINOPHEN 325 MG TABLET PO PRN ×2 (05:11→20:09)
[2017-12-05] MEDS: SUCRALFATE 1 GM TABLET PO SCH ×4 (06:42→20:09)
[2017-12-05] MEDS: ALBUTEROL/IPRATROPIUM 2.5mg-0.5mg/3ml NEB AEROSOL SCH ×4 (07:35→19:29)
[2017-12-05] MEDS: PANTOPRAZOLE 40 MG INJECTION IVP SCH ×2 (08:18→20:08)
[2017-12-05] MEDS: SALINE FLUSH 10ml SYRINGE IVF PRN ×3 (08:19→20:08)
[2017-12-05] MEDS: NS FLUSH BAG 500ml IV PRN (08:19)
[2017-12-05] MEDS: AMLODIPINE 2.5 MG TABLET PO SCH (09:41)
[2017-12-05] MEDS: FOLIC ACID 1 MG TABLET PO SCH (09:42)
--- NOTE | 2017-12-05 10:57 | XRay Report ---
Indication: CHF, pna PROCEDURE: XR chest 1V: Encounter: Initial Comparison: December 03, 2017 Findings: Persistent bilateral airspace disease with worsening in the left upper lobe. Increasing small bilateral pleural effusions. Postoperative changes in the left lung. No pneumothorax. Heart size and mediastinal contours are stable. Impression: Worsening left upper lobe airspace disease and increasing effusions. .
[2017-12-05] MEDS ORDERED: VANCOMYCIN - PHARMACY CONSULT MC ONE (11:13)
--- NOTE | 2017-12-05 11:18 | Progress Note ---
- Date 12/05/17 Subjective: Myra is seen today in follow up. She is dyspneic at rest- reports she is chronically SOA, but has worsened due to pneumonia. She states typically more SOA with walking, but not at rest. She denies any acute c/o pain or GI concerns. Chart is reviewed for collateral information. Objective Vital signs: Temperature 96.8 F 12/05/17 07:00 Pulse Rate 105 H 12/05/17 07:29 Respiratory Rate 20 12/05/17 07:35 Blood Pressure 141/67 H 12/05/17 07:30 Pulse Oximetry 94 12/05/17 07:35 Rhythm: Sinus Tachycardia (Tele reviewed. ) Height/Weight/BMI: Height 1.63 m Weight 57 kg Body Mass Index 22.8 - Constitutional Present: mild distress, well nourished, well developed, average body habitus - Routine HEENT Exam Head: Present: normocephalic, atraumatic Eye: Present: EOMI, PERRL ENT: Present: mucous membranes moist - Routine Respiratory Exam Present: accessory muscle use, dyspnea, decreased breath sounds, rhonchi, diminished air movement - Routine Cardiovascular Exam Present: RRR, S1, S2, no murmur, tachycardia - Routine Abdominal Exam Present: soft, normoactive bowel sounds, non distended, non tender - Routine Extremities Exam Present: no edema, non tender - Routine Musculoskeletal Exam Musculoskeletal: Present: moving extremities well - Routine Skin Exam Present: intact, dry, pallor, warm - Routine Neurological Exam Present: alert, oriented X3, moving all extremities - Routine Psychiatric Exam Present: normal affect, normal thought process, cooperative Results - Labs CBC & Chem 7: 12/05/17 04:18 12/05/17 04:18 Microbiology Results: Microbiology 12/05/17 10:38 Port/Picc Blood Culture - Preliminary Culture Initiated - Results Pending 12/05/17 10:37 Port/Picc Blood Culture - Preliminary Culture Initiated - Results Pending 12/02/17 15:39 Peripheral/Iv Start Gram Stain - Final 12/02/17 15:39 Peripheral/Iv Start Blood Culture - Preliminary Enterococcus species 12/02/17 15:31 Peripheral/Iv Start Blood Culture - Preliminary No Growth After 2 Days - Imaging and Cardiology Chest x-ray Status: image reviewed by me Additional comments: Comparison: December 03, 2017 Findings: Persistent bilateral airspace disease with worsening in the left upper lobe. Increasing small bilateral pleural effusions. Postoperative changes in the left lung. No pneumothorax. Heart size and mediastinal contours are stable. Impression: Worsening left upper lobe airspace disease and increasing effusions. . Assessment and Plan Assessment and Plan: Assessment GI bleed with symptomatic marked anemia, hgb 4.7. History of ibuprofen/ASA use. Hypoxia - sats 84% on 1L with ambulation Tachycardia - improved Severe pancytopenia and neutropenia RUL pneumonia Hypokalemia (POA) Hypomagnesemia (POA) - resolved Dizziness/Weakness Metastatic lung cancer, sees Dr. Rushing Stroke (right thalamic lacunar infarct), 2017 - no deficits - on ASA Hypercholesterolemia Former smoker Plan 12/05/17 HGB trending down slowly, but remains above 8- monitor. FOB +. Continue PPI/Carafate- pt declined endoscopy. Slow improvement in leukocytosis, thrombocytopenia- s/p platelet transfusion, continue Granix. Persistent tachycardia, ongoing dyspnea. She did get Lasix yesterday. Will add low dose metoprolol for HR control- BP should support it. Continue telemetry monitoring. Check ECHO in AM. Repeat CXR in AM. Metastatic lung cancer- may need to consider CT if CXR does not improve on current abx therapy. Continue Meropenem. Consult Pharmacy to help with Vanco dosing. BC on admission + for Enterococcus- continue Vanco and await c/s. Follow up BC- NGTD. Continue O2, Nebs, supportive care. SCDs- avoid blood thinners given slow GI blood losses. DNR status noted. I have seen and examined the patient independently of the midlevel above. I agree with the assessment and plan. Myra feels much better today. She feels like she has more energy than yesterday. Gen: alert and oriented X 3. NAD. CV: RR, tachy Lungs: diminished Abd: soft, NT, ND, + BS Ext: no edema Skin: w/d/i. no rash Agree with addition of metoprolol and echo tomorrow. Changed ATBX to merrem and vanco to cover possible VRE - sensitivities pending Repeat Blood cultures drawn today. Consider CT of chest if not improving. Counts stable today. DVT Prophylaxis: SCD's GI Prophylaxis: Protonix Resuscitation Status: Do Not Resuscitate - Physician Narrative Narrative: Date: 12/05/17 Time: 1115 Hospital Course Summary Disclaimer: The visit summary below is not to be considered part of the above Progress Note. Hospital Course: 12/02/17 Admit, inpatient status, under the hospitalist service. GI bleed/tachycardia/symptomatic anemia -2U PRBC, 1 platelet pack, s/p 2L NS in ED, consult Dr. Kraft, hold ibu/ASA, IV PPI RUL pneumonia, immunocompromised/neutropenic -Vancomycin, Levaquin, cefepime - Neutropenic precautions Hypokalemia & Hypomagnesemia -Replace IV -Telemetry Advanced Directives -Daughter & Son are DPOAs -Would like to be DNR in and out- of-hospital. 12/03/17 Hgb 6.1 following 2U PRBC -- transfuse x2 more unit. Plt improved to 22K. ANC 1360 s/p Granix yesterday. Dr. Kraft not recommending procedures at this time but agrees w/ empiric tx for PUD. Will add oral Carafate to IV Protonix. Repeat CXR d/t hypoxia and increased dyspnea. Schedule DuoNeb QID. Cont IS. Wean O2 as able. Continue Vancomycin/Levaquin/cefepime day #2 for pneumonia. K improved to 3.4 - will give add'l oral KDur. Mg up to 1.9. 12/04/17 Hgb improved to 9.2 today Plt back to 16K today s/p Granix 7/6 - monitor for need Dr. Kraft not recommending procedures at this time but agrees w/ empiric tx for PUD. Repeat CXR with increasing RUL airspace disease. Schedule DuoNeb QID. Cont IS. Wean O2 as able. On Vancomycin/Levaquin/cefepime day #3 for pneumonia. Blood cultures with 1/2 enterococcus species - change to vanco and merrem and await susceptibilities K and mag replaced by night staff. Repeat now and replace. Give another dose of lasix with platelets. CXR in am 12/05/17 HGB trending down slowly, but remains above 8- monitor. FOB +. Continue PPI/Carafate- pt declined endoscopy. Slow improvement in leukocytosis, thrombocytopenia- s/p platelet transfusion, continue Granix. Persistent tachycardia, ongoing dyspnea. She did get Lasix yesterday. Will add low dose metoprolol for HR control- BP should support it. Continue telemetry monitoring. Check ECHO in AM. Repeat CXR in AM. Metastatic lung cancer- may need to consider CT if CXR does not improve on current abx therapy. Continue Meropenem. Consult Pharmacy to help with Vanco dosing. BC on admission + for Enterococcus- continue Vanco and await c/s. Follow up BC- NGTD. Continue O2, Nebs, supportive care. SCDs- avoid blood thinners given slow GI blood losses. DNR status noted.
[2017-12-05] MEDS ORDERED: SALINE FLUSH 10ml SYRINGE ONE ×2 (18:48→19:27)
[2017-12-05] MEDS ORDERED: IOHEXOL 350mg/ml 75ml INJECTION ONE (18:48)
[2017-12-06] MEDS: MEROPENEM 500 MG in NS 50 ML IV SCH ×4 (01:23→23:54)
[2017-12-06] MEDS: SUCRALFATE 1 GM TABLET PO SCH ×4 (06:05→21:37)
[2017-12-06] MEDS: ALBUTEROL/IPRATROPIUM 2.5mg-0.5mg/3ml NEB AEROSOL SCH ×4 (07:52→19:34)
[2017-12-06] MEDS: PANTOPRAZOLE 40 MG INJECTION IVP SCH ×2 (08:30→21:37)
[2017-12-06] MEDS: SALINE FLUSH 10ml SYRINGE IVF PRN ×3 (08:30→17:30)
[2017-12-06] MEDS: ACETAMINOPHEN 325 MG TABLET PO PRN ×2 (08:31→23:14)
[2017-12-06] MEDS: AMLODIPINE 5 MG TABLET PO SCH (08:31)
[2017-12-06] MEDS: FOLIC ACID 1 MG TABLET PO SCH (08:32)
--- NOTE | 2017-12-06 08:53 | CT Scan Report ---
CT angio pulm emboli INDICATION: hypoxia, tachycardia, lung cancer COMPARISON: None. TECHNIQUE: Following the uneventful administration of 70 cc Omnipaque 350 intravenous contrast, axial CT sections were obtained through the lungs and upper abdomen. Coronal and sagittal multiplanar reconstructions were also obtained. All CT scans are performed using radiation dose reduction technique. FINDINGS: Lungs and Airways: The lungs are hyperexpanded showing extensive ground glass opacification in both upper lobes, lingula and right middle lobe and to a lesser degree in both lower lobes. There is dense of underlying bronchiectasis in both upper lobes. There is a 4.7 x 3.3 cm cavitary mass in the superior segment of the left lower lobe which demonstrates diffuse wall thickening and an air-fluid level. There is bilateral apical parenchymal/pleural thickening/scarring. No endoluminal lesion. Pleura: There are small to moderate-sized bilateral pleural effusions right greater than left. There is no evidence of a pneumothorax. Heart and Mediastinum: The visualized portions of the thyroid gland are normal in size and attenuation. No axillary or supraclavicular lymphadenopathy. Reactive appearing lymph nodes are seen in the precarinal, paratracheal regions but no pathologic adenopathy is seen in the thorax. The heart and pericardium are within normal limits size and contour. The pulmonary arteries are well opacified showing no evidence of filling defect to suggest pulmonary embolus.. Thoracic aorta is normal caliber, demonstrating moderate calcific plaque formation. The thoracic aorta is not adequately opacified to assess for intimal flap or dissection. Abdomen: The visualized abdominal organs demonstrate visualized portions of the liver and spleen are homogeneous. There is no evidence of adrenal enlargement. 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 There is a small hiatal hernia with gaseous distention of the proximal esophagus likely on the basis of gastroesophageal reflux. There is nonspecific bilateral perinephric stranding. Bones and Soft Tissues: The osseous structures showed no acute osseous abnormality. Moderate degenerative spondylosis is evident in the moderately kyphotic dorsal spine. The soft tissues of the chest wall are within normal limits. There is a right-sided port catheter in place. IMPRESSION: 1. No CT angiogram evidence of pulmonary embolus. The thoracic aorta is normal caliber showing moderate calcific plaque formation but is not opacified adequately to assess for intimal flap or dissection. 2. Chronic emphysematous lung changes with chronic bronchiectasis and both upper lobes. There are superimposed patchy groundglass opacities in both lung mcconnell as described concerning for acute infiltrate/atelectasis or edema. Recommend close follow-up to ensure resolution. Opportunistic infection is not excluded. 3. There is a 4.7 x 3.3 cm thick-walled cavitary mass in the superior segment of the left lower lobe with an air-fluid level which may be secondary to a pulmonary abscess or infected bulla. The possibility of cavitary malignant involvement of the left lower lobe is not excluded. 4. Small to moderate size bilateral pleural effusions right greater than left. 5. Reactive mediastinal adenopathy. .
--- NOTE | 2017-12-06 09:47 | XRay Report ---
EXAM: XR chest 2V HISTORY: PNA COMPARISON: Prior examination dated 12/05/2017 FINDINGS: The heart remains within normal limits size. The mediastinum is not widened. The trachea is midline. There are again noted diffuse bilateral patchy alveolar and interstitial infiltrates which are primarily upper lung zone in location. There are small bilateral pleural effusions left slightly greater than right. The bony thorax is stable. There is a stable appearance of the right IJ indwelling central venous catheter. There is artifact from cardiac monitoring lead wires over the chest IMPRESSION: . 1. No significant interval change in the diffuse bilateral alveolar interstitial infiltrates r 2. Small bilateral pleural effusions persist, left greater than right. .
--- NOTE | 2017-12-06 10:11 | General Surgery Progress Note ---
Subjective Patient reports: feels better (since she has had 4 blood transfusions.), tolerating a regular diet (small amounts), bowel movement (2 days ago, formed), shortness of breath (worse with any activity), fever (intermettently) - Vital Signs Last Vital Signs Temp 97.7 F 12/06/17 08:00 Pulse 120 H 12/06/17 08:10 Resp 22 12/06/17 08:00 BP 158/67 H 12/06/17 08:10 Pulse Ox 94 12/06/17 08:00 - Laboratory Result Diagrams: 12/06/17 07:11 12/06/17 07:11 Laboratory Tests 12/02/17 12/02/17 12/03/17 11:34 21:46 06:35 WBC 0.9 L* 1.7 L* D Hgb 4.7 L* 5.0 L* 6.1 L D 12/04/17 12/05/17 12/06/17 04:22 04:18 07:11 WBC 4.5 D 7.6 D 12.2 H D Hgb 8.7 L 9.3 L Laboratory Tests 12/02/17 12/03/17 12/05/17 11:34 06:35 04:18 Plt Count 15 L* 22 L* D 40 L 12/06/17 07:11 Plt Count 38 L - Microbiogy Microbiology 12/02/17 15:31 Peripheral/Iv Start Blood Culture - Preliminary No Growth After 3 Days 12/05/17 10:38 Port/Picc Blood Culture - Preliminary Culture Initiated - Results Pending 12/05/17 10:37 Port/Picc Blood Culture - Preliminary Culture Initiated - Results Pending 12/02/17 15:39 Peripheral/Iv Start Gram Stain - Final 12/02/17 15:39 Peripheral/Iv Start Blood Culture - Preliminary Enterococcus species - Radiology CXR today IMPRESSION: . 1. No significant interval change in the diffuse bilateral alveolar interstitial infiltrates r 2. Small bilateral pleural effusions persist, left greater than right. - Abnormal Exam Respiratory: rales, other (diminished) Cardiovascular: other (tachy 110's-120's) - Normal Exam General: awake, alert, oriented Abdominal: soft, non-tender Psychiatric: normal affect Assessment and Plan (1) Anemia Current Visit: Yes Status: Acute Qualifiers: Anemia type: iron deficiency Iron deficiency anemia type: chronic blood loss Qualified Code(s): D50.0 - Iron deficiency anemia secondary to blood loss (chronic) (2) Acquired pancytopenia Current Visit: Yes Status: Acute (3) Non-small cell lung cancer Current Visit: No Status: Chronic Plan: labs have improved, no indication of ongoing blood loss. will hold off on endoscopy for now. Chemo and related treatment per oncology. General medical care per hospitalist team. Thank you for this consult, please call if additional surgical concerns arise. Hospital Course Summary Disclaimer: The visit summary below is not to be considered part of the above Progress Note. Hospital Course: 12/02/17 Admit, inpatient status, under the hospitalist service. GI bleed/tachycardia/symptomatic anemia -2U PRBC, 1 platelet pack, s/p 2L NS in ED, consult Dr. Kraft, hold ibu/ASA, IV PPI RUL pneumonia, immunocompromised/neutropenic -Vancomycin, Levaquin, cefepime - Neutropenic precautions Hypokalemia & Hypomagnesemia -Replace IV -Telemetry Advanced Directives -Daughter & Son are DPOAs -Would like to be DNR in and out- of-hospital. 12/03/17 Hgb 6.1 following 2U PRBC -- transfuse x2 more unit. Plt improved to 22K. ANC 1360 s/p Granix yesterday. Dr. Kraft not recommending procedures at this time but agrees w/ empiric tx for PUD. Will add oral Carafate to IV Protonix. Repeat CXR d/t hypoxia and increased dyspnea. Schedule DuoNeb QID. Cont IS. Wean O2 as able. Continue Vancomycin/Levaquin/cefepime day #2 for pneumonia. K improved to 3.4 - will give add'l oral KDur. Mg up to 1.9. 12/04/17 Hgb improved to 9.2 today Plt back to 16K today s/p Granix 7/6 - monitor for need Dr. Kraft not recommending procedures at this time but agrees w/ empiric tx for PUD. Repeat CXR with increasing RUL airspace disease. Schedule DuoNeb QID. Cont IS. Wean O2 as able. On Vancomycin/Levaquin/cefepime day #3 for pneumonia. Blood cultures with 1/2 enterococcus species - change to vanco and merrem and await susceptibilities K and mag replaced by night staff. Repeat now and replace. Give another dose of lasix with platelets. CXR in am 12/05/17 HGB trending down slowly, but remains above 8- monitor. FOB +. Continue PPI/Carafate- pt declined endoscopy. Slow improvement in leukocytosis, thrombocytopenia- s/p platelet transfusion, continue Granix. Persistent tachycardia, ongoing dyspnea. She did get Lasix yesterday. Will add low dose metoprolol for HR control- BP should support it. Continue telemetry monitoring. Check ECHO in AM. Repeat CXR in AM. Metastatic lung cancer- may need to consider CT if CXR does not improve on current abx therapy. Continue Meropenem. Consult Pharmacy to help with Vanco dosing. BC on admission + for Enterococcus- continue Vanco and await c/s. Follow up BC- NGTD. Continue O2, Nebs, supportive care. SCDs- avoid blood thinners given slow GI blood losses. DNR status noted.
--- NOTE | 2017-12-06 10:55 | Progress Note ---
- Date 12/06/17 Subjective: Myra is feeling better. She has a nonproductive cough. She denies feeling short of breath or dizzy. She denies feeling weak. She has only been up to walk to and from the bathroom. She states that her appetite has been good, although her RN reports that she has not been eating well. She is keeping up on fluids. She denies abdominal pain or nausea. She denies feeling constipated - last BM 2 days ago which is typical for her. Objective Vital signs: Temperature 97.7 F 12/06/17 08:00 Pulse Rate 120 H 12/06/17 08:10 Respiratory Rate 22 12/06/17 08:00 Blood Pressure 158/67 H 12/06/17 08:10 Pulse Oximetry 94 12/06/17 08:00 Rhythm: Sinus Tachycardia (Tele reviewed. ) Height/Weight/BMI: Height 1.63 m Weight 57.1 kg Body Mass Index 22.8 - Constitutional Present: no acute distress, well nourished, well developed, thin - Routine HEENT Exam Head: Present: normocephalic Eye: Present: PERRL. Absent: conjunctival icterus, scleral injection ENT: Present: mucous membranes moist - Routine Respiratory Exam Present: crackles (faint crackles b/l) - Routine Cardiovascular Exam Present: RRR (occ extrasystole), S1, S2 - Routine Abdominal Exam Present: soft, normoactive bowel sounds, non distended, non tender - Routine Extremities Exam Present: no edema - Routine Skin Exam Present: intact, dry, warm - Routine Neurological Exam Present: alert, oriented X3, CN II-XII intact, moving all extremities, vision grossly intact, hearing grossly intact, normal speech. Absent: sensory deficit , motor deficit, altered mental status, facial asymmetry - Routine Psychiatric Exam Present: normal affect, normal thought process, cooperative Results - Labs CBC & Chem 7: 12/06/17 07:11 12/06/17 07:11 Microbiology Results: Microbiology 12/05/17 10:37 Port/Picc Blood Culture - Preliminary No Growth After 1 Day 12/05/17 10:38 Port/Picc Blood Culture - Preliminary No Growth After 1 Day 12/02/17 15:31 Peripheral/Iv Start Blood Culture - Preliminary No Growth After 3 Days 12/02/17 15:39 Peripheral/Iv Start Gram Stain - Final 12/02/17 15:39 Peripheral/Iv Start Blood Culture - Preliminary Enterococcus species - Imaging and Cardiology Chest x-ray Status: image reviewed by me Additional comments: B/L infiltrates, L>R Assessment and Plan (1) Pneumonia Current visit: Yes Status: Acute Assessment and Plan: Assessment GI bleed with symptomatic marked anemia, hgb 4.7. History of ibuprofen/ASA use. Hypoxia - sats 84% on 1L with ambulation Tachycardia - improved Severe pancytopenia and neutropenia Enterococcal bacteremia Pneumonia Hypokalemia (POA) Hypomagnesemia (POA) Hypophosphatemia Dizziness/Weakness Metastatic lung cancer, sees Dr. Rushing Stroke (right thalamic lacunar infarct), 2017 - no deficits - on ASA Hypercholesterolemia Former smoker Plan 12/06/17 CTA chest done yesterday shows a 4.7 x 3.3 cm thick-walled cavitary mass in the superior segment of the left lower lobe with an air-fluid level which may be secondary to a pulmonary abscess or infected bulla; infiltrates vs. edema; also b/l pleural effusions and chronic lung changes. WBC 12.2. BC + Enterococcus; c/ s pending. Repeat BC NGTD. Continue vanco and Merrem. Continue nebs. Consult Dr. Holm. Diet advanced. Hgb stable, 9.3. Poor food intake per RN -- may need to get calorie count if appetite doesn't improve now that it's been advanced. Cont IV PPI. K 3.1, Mg 1.5, Phos 1.6 -- KDur 20 mEq TID (taper as needed); MagOx 800 mg daily ; K-Phos 1000 mg [facility]HS. Echo done, pending. Tachycardic with elevated BP; increase metoprolol tartrate to 25 mg BID. Consult PT/OT. DVT Prophylaxis: SCD's GI Prophylaxis: Protonix Resuscitation Status: Do Not Resuscitate - Time spent with patient Time with patient PN: 25 minutes - Physician Narrative Physician: Yehuda Feliciano MD Narrative: Date: 12/06/17 Time: 1655 Have independently interviewed and examined pt. Chart reviewed. Case discussed with my HOLE DIGGER. Care plan developed with my supervision; agree with above. Doing fair. Breathing feels more short, slightly labored-notes non productive cough which is not typical for her. Harder to take deep breath. Appetite feels okay. No nausea or ab pain. Stools chronically slow-not feeling constipated. Strength decreased. Lungs: decreased, more coarse on left than right CV: tachy, regular AB: soft nt/nd MSE: awake alert Plan: Continue with antibiotic therapy. Consult with Dr Hlom due to findings on CT scan. Encourage activity-PT/OT consulted. Monitor blood counts. Hospital Course Summary Disclaimer: The visit summary below is not to be considered part of the above Progress Note. Hospital Course: 12/02/17 Admit, inpatient status, under the hospitalist service. GI bleed/tachycardia/symptomatic anemia -2U PRBC, 1 platelet pack, s/p 2L NS in ED, consult Dr. Kraft, hold ibu/ASA, IV PPI RUL pneumonia, immunocompromised/neutropenic -Vancomycin, Levaquin, cefepime - Neutropenic precautions Hypokalemia & Hypomagnesemia -Replace IV -Telemetry Advanced Directives -Daughter & Son are DPOAs -Would like to be DNR in and out- of-hospital. 12/03/17 Hgb 6.1 following 2U PRBC -- transfuse x2 more unit. Plt improved to 22K. ANC 1360 s/p Granix yesterday. Dr. Kraft not recommending procedures at this time but agrees w/ empiric tx for PUD. Will add oral Carafate to IV Protonix. Repeat CXR d/t hypoxia and increased dyspnea. Schedule DuoNeb QID. Cont IS. Wean O2 as able. Continue Vancomycin/Levaquin/cefepime day #2 for pneumonia. K improved to 3.4 - will give add'l oral KDur. Mg up to 1.9. 12/04/17 Hgb improved to 9.2 today Plt back to 16K today s/p Granix 7/6 - monitor for need Dr. Kraft not recommending procedures at this time but agrees w/ empiric tx for PUD. Repeat CXR with increasing RUL airspace disease. Schedule DuoNeb QID. Cont IS. Wean O2 as able. On Vancomycin/Levaquin/cefepime day #3 for pneumonia. Blood cultures with 1/2 enterococcus species - change to vanco and merrem and await susceptibilities K and mag replaced by night staff. Repeat now and replace. Give another dose of lasix with platelets. CXR in am 12/05/17 HGB trending down slowly, but remains above 8- monitor. FOB +. Continue PPI/Carafate- pt declined endoscopy. Slow improvement in leukocytosis, thrombocytopenia- s/p platelet transfusion, continue Granix. Persistent tachycardia, ongoing dyspnea. She did get Lasix yesterday. Will add low dose metoprolol for HR control- BP should support it. Continue telemetry monitoring. Check ECHO in AM. Repeat CXR in AM. Metastatic lung cancer- may need to consider CT if CXR does not improve on current abx therapy. Continue Meropenem. Consult Pharmacy to help with Vanco dosing. BC on admission + for Enterococcus- continue Vanco and await c/s. Follow up BC- NGTD. Continue O2, Nebs, supportive care. SCDs- avoid blood thinners given slow GI blood losses. DNR status noted. 12/06/17 CTA chest done yesterday shows a 4.7 x 3.3 cm thick-walled cavitary mass in the superior segment of the left lower lobe with an air-fluid level which may be secondary to a pulmonary abscess or infected bulla; infiltrates vs. edema; also b/l pleural effusions and chronic lung changes. WBC 12.2. BC + Enterococcus; c/ s pending. Repeat BC NGTD. Continue vancomycin and Merrem. Continue nebs. Consult Dr. Holm. Diet advanced. Hgb stable, 9.3. Poor food intake per RN -- may need to get calorie count if appetite doesn't improve now that it's been advanced. Cont IV PPI. K 3.1, Mg 1.5, Phos 1.6 -- KDur 20 mEq TID (taper as needed); MagOx 800 mg daily ; K-Phos 1000 mg WMHS. Echo done, pending. Tachycardic with elevated BP; increase metoprolol tartrate to 25 mg BID. Consult PT/OT.
--- NOTE | 2017-12-06 11:42 | Pharmacy Consult-Antibiotics ---
Pharmacy Consult-Vancomycin - Laboratory Information WBC 12.2 T/MM3 (4.5-11.0) H D 12/06/17 07:11 BUN 10.0 MG/DL (7-17) 12/06/17 07:11 Creatinine 0.7 mg/dL (0.7-1.2) 12/06/17 07:11 Vancomycin Trough 10.80 ug/mL (15-20) L 12/05/17 15:07 - Consult Information VANCOMYCIN CONSULT: Vancomycin Trough = 10.8 mcg/ml. Today's SCr = 0.7 mg/dl. Will give Vancomycin 1,250 mg IV q18hrs. Will continue to monitor and make adjustments accordingly. Thank you.
[2017-12-06] MEDS ORDERED: ALTEPLASE (Cathflo*) 2mg INJECTION IV ONE (12:05)
[2017-12-06] MEDS: AMLODIPINE 2.5 MG TABLET PO SCH (12:06)
[2017-12-06] MEDS: PHOSPHORUS 250 MG TABLET PO SCH ×3 (12:13→21:37)
[2017-12-06] MEDS: MAGNESIUM OXIDE 400 MG TABLET PO SCH (12:13)
[2017-12-06] MEDS: NS FLUSH BAG 500ml IV PRN (12:15)
--- NOTE | 2017-12-06 17:54 | Echocardiogram ---
DATE OF PROCEDURE December 06, 2017 This is a two-dimensional echo with spectral Doppler, color-flow and M-mode. It was obtained in a patient with tachycardia. Left atrial dimension is normal. Left ventricular end-diastolic dimension is normal. Left ventricular wall thickness is at the upper limits of normal. LV systolic function is normal with ejection fraction of about 60%-65%. Right atrium is normal. Right ventricle is normal. Aortic root dimension is normal. Mitral valve annulus is calcified. Mitral valve leaflets are normal with mild mitral regurgitation. Aortic valve is a trileaflet structure with no stenosis or insufficiency. Tricuspid valve shows mild tricuspid regurgitation with [id number] pulmonary hypertension with estimated pulmonary artery systolic pressure of 43. Pulmonary valve shows no pulmonary insufficiency. There is no pericardial effusion. Pleural effusion is present. IMPRESSION 1. Normal LV systolic function with ejection fraction of about 60%-65%. 2. Pleural effusion is present. 3. Mitral annulus calcification with mild mitral regurgitation. 4. Mild tricuspid regurgitation with [id number] pulmonary hypertension with estimated pulmonary artery systolic pressure of 43. MTDD
[2017-12-07] MEDS: SUCRALFATE 1 GM TABLET PO SCH ×4 (06:06→22:34)
[2017-12-07] MEDS: ALBUTEROL/IPRATROPIUM 2.5mg-0.5mg/3ml NEB AEROSOL SCH ×4 (06:44→18:52)
[2017-12-07] MEDS: SALINE FLUSH 10ml SYRINGE IVF PRN ×3 (08:39→17:59)
[2017-12-07] MEDS: MEROPENEM 500 MG in NS 50 ML IV SCH ×2 (08:39→19:09)
[2017-12-07] MEDS: MAGNESIUM OXIDE 400 MG TABLET PO SCH (10:17)
[2017-12-07] MEDS: AMLODIPINE 5 MG TABLET PO SCH (10:19)
[2017-12-07] MEDS: FOLIC ACID 1 MG TABLET PO SCH (10:20)
[2017-12-07] MEDS: MAGNESIUM SULFATE 1gm PREMIX 1 GM/100 ML BAG IV SCH ×2 (10:20→11:44)
[2017-12-07] MEDS: PANTOPRAZOLE 40 MG INJECTION IVP SCH ×2 (10:20→22:33)
[2017-12-07] MEDS: PHOSPHORUS 250 MG TABLET PO SCH ×4 (11:05→22:34)
--- NOTE | 2017-12-07 12:29 | Progress Note ---
- Date 12/07/17 Subjective: Myra c/o weakness, and mostly feeling very tired. She denies feeling dizzy. She states that her breathing is about the same. She continues to have a nonproductive cough. She denies abdominal pain but doesn't have an appetite. She c/o nausea when she takes "big pills" and can't tolerate KDur well. She had 1 episode of diarrhea this morning, brown in color. She didn't see any blood and she stated it didn't look black. Objective Vital signs: Temperature 96.1 F L 12/07/17 08:00 Pulse Rate 124 H 12/07/17 08:00 Respiratory Rate 18 12/07/17 10:35 Blood Pressure 161/79 H 12/07/17 08:00 Pulse Oximetry 97 12/07/17 10:35 Rhythm: Sinus Tachycardia (Tele reviewed. ) Height/Weight/BMI: Height 1.63 m Weight 58.9 kg Body Mass Index 22.8 - Constitutional Present: no acute distress, thin - Routine HEENT Exam Head: Present: normocephalic Eye: Present: PERRL. Absent: conjunctival icterus, scleral injection - Routine Respiratory Exam Present: decreased breath sounds, crackles (b/l) - Routine Cardiovascular Exam Present: RRR, S1, S2 - Routine Abdominal Exam Present: soft, normoactive bowel sounds, non distended, non tender - Routine Extremities Exam Present: no edema - Routine Skin Exam Present: intact, dry, warm - Routine Neurological Exam Present: alert, oriented X3, CN II-XII intact, normal speech - Routine Psychiatric Exam Present: normal affect, normal thought process, cooperative Results - Labs CBC & Chem 7: 12/07/17 04:18 12/07/17 04:18 Microbiology Results: Microbiology 12/05/17 10:37 Port/Picc Blood Culture - Preliminary No Growth After 2 Days 12/05/17 10:38 Port/Picc Blood Culture - Preliminary No Growth After 2 Days 12/02/17 15:39 Peripheral/Iv Start Gram Stain - Final 12/02/17 15:39 Peripheral/Iv Start Blood Culture - Preliminary Enterococcus species 12/02/17 15:31 Peripheral/Iv Start Blood Culture - Preliminary No Growth After 4 Days Assessment and Plan (1) Pneumonia Current visit: Yes Status: Acute Assessment and Plan: Assessment GI bleed with symptomatic marked anemia, hgb 4.7. History of ibuprofen/ASA use. Hypoxia - sats 84% on 1L with ambulation Tachycardia Severe pancytopenia and neutropenia Enterococcal bacteremia Pneumonia LLL cavitary mass Hypokalemia (POA) Hypomagnesemia (POA) Hypophosphatemia Dizziness/Weakness Metastatic lung cancer, sees Dr. Rushing Stroke (right thalamic lacunar infarct), 2017 - no deficits - on ASA Hypercholesterolemia Former smoker Plan Ongoing electrolyte deficiencies - d/t poor tolerance of PO meds will replace K (3.0) & Mg (1.5) IV. Phos improved to 2.9 Echo done: EF 60-65%; mild MR, mild TR, mild-mod PH Remains tachycardic; metoprolol was increased yesterday. Weight is going back up , but clinically appears dry. Oral intake has been poor. She doesn't like the consistency of Mighty Shakes. May need to resume IVF. WBC 11.5, hgb 8.6. Continue Merrem and vanco for enterococcal bacteremia. Consider ID consult. Repeat BC NGTD. Jodie Discussed case with Dr Holm. Dr Holm discussed with patient and family about possible bronch-would like to hold on that for now. He recommends trial of steroids to see if will help-will start Solu-Medrol 125mg IV q 6 hours. Replace Mg and potassium IV secondary to tolerability with oral - will place oral potassium on hold. As BP elevated, will start low dose lisinopril 5mg nightly to help BP and preserve potassium. DVT Prophylaxis: SCD's GI Prophylaxis: Protonix Resuscitation Status: Do Not Resuscitate - Time spent with patient Time with patient PN: 25 minutes - Physician Narrative Physician: Yehuda Feliciano MD Narrative: Date: 12/07/17 Time: 1705 Have independently interviewed and examined pt. Chart reviewed. Case discussed with Dr Hlom and my LAB ENGINEER. Care plan developed with my supervision; agree with above. About the same-still SOA with movements. Hard to be active due to the dyspnea. Little cough/congestion. Appetite varies. Had episode of emesis post potassium at noon. Lungs: decreased, crackles and wheezes. CV: tachy, regular AB: soft nt EXT: no edema MSE: awake alert Plan: Continue with antibiotic therapy. Dr Holm discussed with patient and family about possible bronch-would like to hold on that for now. He recommends trial of steroids to see if will help-will start Solu-Medrol 125mg IV q 6 hours. Replace Mg and potassium IV secondary to tolerability with oral - will place oral potassium on hold. As BP elevated, will start low dose lisinopril 5mg nightly to help BP and preserve potassium. Monitor lab. Hospital Course Summary Disclaimer: The visit summary below is not to be considered part of the above Progress Note. Hospital Course: 12/02/17 Admit, inpatient status, under the hospitalist service. GI bleed/tachycardia/symptomatic anemia -2U PRBC, 1 platelet pack, s/p 2L NS in ED, consult Dr. Kraft, hold ibu/ASA, IV PPI RUL pneumonia, immunocompromised/neutropenic -Vancomycin, Levaquin, cefepime - Neutropenic precautions Hypokalemia & Hypomagnesemia -Replace IV -Telemetry Advanced Directives -Daughter & Son are DPOAs -Would like to be DNR in and out- of-hospital. 12/03/17 Hgb 6.1 following 2U PRBC -- transfuse x2 more unit. Plt improved to 22K. ANC 1360 s/p Granix yesterday. Dr. Kraft not recommending procedures at this time but agrees w/ empiric tx for PUD. Will add oral Carafate to IV Protonix. Repeat CXR d/t hypoxia and increased dyspnea. Schedule DuoNeb QID. Cont IS. Wean O2 as able. Continue Vancomycin/Levaquin/cefepime day #2 for pneumonia. K improved to 3.4 - will give add'l oral KDur. Mg up to 1.9. 12/04/17 Hgb improved to 9.2 today Plt back to 16K today s/p Granix 7/6 - monitor for need Dr. Kraft not recommending procedures at this time but agrees w/ empiric tx for PUD. Repeat CXR with increasing RUL airspace disease. Schedule DuoNeb QID. Cont IS. Wean O2 as able. On Vancomycin/Levaquin/cefepime day #3 for pneumonia. Blood cultures with 1/2 enterococcus species - change to vanco and merrem and await susceptibilities K and mag replaced by night staff. Repeat now and replace. Give another dose of lasix with platelets. CXR in am 12/05/17 HGB trending down slowly, but remains above 8- monitor. FOB +. Continue PPI/Carafate- pt declined endoscopy. Slow improvement in leukocytosis, thrombocytopenia- s/p platelet transfusion, continue Granix. Persistent tachycardia, ongoing dyspnea. She did get Lasix yesterday. Will add low dose metoprolol for HR control- BP should support it. Continue telemetry monitoring. Check ECHO in AM. Repeat CXR in AM. Metastatic lung cancer- may need to consider CT if CXR does not improve on current abx therapy. Continue Meropenem. Consult Pharmacy to help with Vanco dosing. BC on admission + for Enterococcus- continue Vanco and await c/s. Follow up BC- NGTD. Continue O2, Nebs, supportive care. SCDs- avoid blood thinners given slow GI blood losses. DNR status noted. 12/06/17 CTA chest done yesterday shows a 4.7 x 3.3 cm thick-walled cavitary mass in the superior segment of the left lower lobe with an air-fluid level which may be secondary to a pulmonary abscess or infected bulla; infiltrates vs. edema; also b/l pleural effusions and chronic lung changes. WBC 12.2. BC + Enterococcus; c/ s pending. Repeat BC NGTD. Continue vancomycin and Merrem. Continue nebs. Consult Dr. Holm. Diet advanced. Hgb stable, 9.3. Poor food intake per RN -- may need to get calorie count if appetite doesn't improve now that it's been advanced. Cont IV PPI. K 3.1, Mg 1.5, Phos 1.6 -- KDur 20 mEq TID (taper as needed); MagOx 800 mg daily ; K-Phos 1000 mg WMHS. Echo done, pending. Tachycardic with elevated BP; increase metoprolol tartrate to 25 mg BID. Consult PT/OT. 12/07/17 Ongoing electrolyte deficiencies - d/t poor tolerance of PO meds will replace K (3.0) & Mg (1.5) IV. Phos improved to 2.9 Echo done: EF 60-65%; mild MR, mild TR, mild-mod PH Remains tachycardic; metoprolol was increased yesterday. Weight is going back up , but clinically appears dry. Oral intake has been poor. She doesn't like the consistency of Mighty Shakes. May need to resume IVF. WBC 11.5, hgb 8.6. Continue Merrem and vanco for enterococcal bacteremia. Consider ID consult. Repeat BC NGTD. Discussed case with Dr Holm. Dr Holm discussed with patient and family about possible bronch-would like to hold on that for now. He recommends trial of steroids to see if will help-will start Solu-Medrol 125mg IV q 6 hours. Replace Mg and potassium IV secondary to tolerability with oral - will place oral potassium on hold. As BP elevated, will start low dose lisinopril 5mg nightly to help BP and preserve potassium.
[2017-12-07] MEDS: LIDOCAINE 1% INJ 10 MG, POTASSIUM CHLORIDE INJ 10 MEQ in NS 100 ML IV SCH ×4 (13:28→17:47)
[2017-12-07] MEDS: NS FLUSH BAG 500ml IV PRN (13:53)
--- NOTE | 2017-12-07 17:48 | Pulmonology Consult Note ---
History of Present Illness Consult date: 12/07/17 Requesting physician: Yehuda Feliciano Reason for consult: pneumonia Chief complaint: cough, weakness History of present illness: HPI: Myra Huerta is an 82 year old woman with lung cancer, diagnosed in [address] Rushing. She is on chemotherapy (Carboplatin and Alimta) every 3 weeks ongoing for about the last 4 months. Her last round on November 22, 2017. She received a blood transfusion around 11/26/17. She typically feels very wiped out after chemo. Over the last few days, however, she's been more weak and dizzy/ lightheaded. She even had to use her walker to ambulate. She was becoming more short of breath with exertion. She also had black-colored diarrhea on 12/03/17. Previously, about a month ago, she had black-colored stools but that resolved after she stopped taking extra iron tablets. She states that she's been having an intermittent occipital headache that is throbbing in nature. She took ibuprofen 600 mg every 3-4 hours on 12/01/17 (usually she takes ibuprofen 600 mg QHS). She states that she recently saw Dr. Rushing and had a brain MRI on 11/22/17 , which was negative for acute findings. Her daughter also states she had a CT chest but we don't have those results at this time. She also reports anorexia but interestingly has had weight gain. She denies n/v or abdominal pain. She's never had a colonoscopy or EGD. She denies chest pain or palpitations. She denies falls or syncope. She denies sinus congestion, sore throat, cough, dysphagia. She denies fever or chills, body aches or joint pain/swelling. She denies dysuria or hematuria (though did have hematuria last year and had a right nephrostomy tube for hydronephrosis). She bruises easily with her history of low platelets. Her family also indicate that she's been slightly confused at times. Because of her increasing weakness, she presented to [facility] on 12/02/17. Her hgb was markedly low at 4.7. Platelets were 15K. WBC was only 0.9. She was hypokalemic at 3.0. CXR revealed RUL pneumonia and she was started on Levaquin. Blood transfusion was ordered. Since admission the patient has continued to have weakness and cough, though non -productive. She has no current fever. CT chest shows diffuse bilateral ground glass opacities of unclear etiology and a focal pleural based density with central cavitation in the left base. Review of Systems All systems PM: 10-point ROS was reviewed, no additional remarkable complaints except - EENMT Eyes: Present: loss of vision (gradual) - Integumentary/Breasts Integumentary: Absent: rash, wounds Past Medical History Medical History: Medical History (Last Updated 12/02/17 @ 14:28 by Annette Tinsley APRN) AMD (age related macular degeneration) Cataracts, both eyes Hypercholesteremia Lung cancer diagnosed in 2016, sees Dr. Rushing Medical History Updates: Stroke 2017 small right thalamic lacunar - no deficits Surgical History: Hysterectomy (2001). Appendectomy (2001). Nephrostomy tube x 6 weeks in 2017. Right cataract removal: 09/15/17. Ear tbes 11/02/17 Dr. Calderon Family History: Family History (Last Reviewed 09/21/17 @ 10:11 by Tara France) Father , age 67 Cancer of lung Mother No problems noted. Unknown , 4 healthy siblings age 40 (MVA) No problems noted. Family History: As Above - Social History Smoking status: Former smoker (quit in 2015) Packs per day: 1 Packs-years: 45 Substance use type: does not use Alcohol intake frequency: holidays/special occasions only Current occupational status: retired Previous occupational history: manager proposal Does patient use chewing tobacco?: No Review of Systems All systems: reviewed and no additional remarkable complaints except as stated PFSH Patient Stated Medical History Transient Ischemic Attacks ( Yes: RECALLED IN PAST MEDICAL; PT DENIES TIA) Cataracts Yes: bilateral Heart Murmur Yes: RECALLED IN PAST MEDICAL; PT DENIES Sleep Apnea No Anemia Yes: CHEMO TREATMENT RELATED Blood Disorders Yes: low platelet r/t Chemo Shingles Yes Chemotherapy Yes Clinic Medical History (Last Updated 12/02/17 @ 14:28 by Annette Tinsley APRN) AMD (age related macular degeneration) (Acute Medical) Cataracts, both eyes (Acute Medical) Hypercholesteremia (Chronic Medical) Lung cancer (Chronic Medical) diagnosed in 2016, sees Dr. Rushing Medical History Updates: Stroke 2017 small right thalamic lacunar - no deficits Surgical History: Hysterectomy (2001). Appendectomy (2001). Nephrostomy tube x 6 weeks in 2017. Right cataract removal: 09/15/17. Ear tbes 11/02/17 Dr. Calderon Family History: Family History (Last Reviewed 09/21/17 @ 10:11 by Tara France) Father , age 67 Cancer of lung Mother No problems noted. Unknown , 4 healthy siblings age 40 (MVA) No problems noted. - Social History Smoking status: Former smoker Packs per day: 1 Packs-years: 45 second hand exposure: No Substance use type: does not use Alcohol intake frequency: holidays/special occasions only Current occupational status: retired Previous occupational history: manager proposal Does patient use chewing tobacco?: No Current residence: Apartment/Private Home Medications Home Medications Medication Instructions Recorded Confirmed Type folic acid 1 mg tablet 1 mg PO DAILY 07/29/17 12/02/17 History Amlodipine [Norvasc] 2.5 mg PO DAILY 12/03/17 12/03/17 History Allergies Allergy/AdvReac Type Severity Reaction Status Date / Time No Known Allergies Allergy Verified 12/02/17 11:41 Exam Vital signs: Temperature 98.8 F 12/07/17 15:51 Pulse Rate 109 H 12/07/17 15:51 Respiratory Rate 32 H 12/07/17 15:51 Blood Pressure 157/77 H 12/07/17 15:51 Pulse Oximetry 91 12/07/17 15:51 - Constitutional no acute distress - Routine HEENT Exam Head: Present: normocephalic Eye: Absent: conjunctival icterus ENT: Present: mucous membranes moist - Routine Neck Exam Present: supple - Routine Respiratory Exam Present: crackles. Absent: accessory muscle use Comments: bilateral rales mainly anterior - Routine Cardiovascular Exam Present: RRR - Routine Abdominal Exam Present: soft. Absent: guarding - Routine Extremities Exam Absent: cyanosis, clubbing - Routine Back/Spine/Pelvis Exam Back/Spine: Present: full ROM - Routine Skin Exam Absent: rash - Routine Neurological Exam Present: alert, oriented X3. Absent: motor deficit Results - Laboratory Findings CBC and BMP: 12/07/17 04:18 12/07/17 04:18 PT/INR, D-dimer INR 1.11 (0.92-1.18) 12/02/17 11:34 Abnormal lab findings: Abnormal Labs 12/02/17 12/02/17 12/02/17 11:34 11:34 11:34 WBC 0.9 L* RBC 1.51 L Hgb 4.7 L* Hct 14.8 L* RDW Std Deviation 58.1 H Plt Count 15 L* Neutrophils % (Manual) Band Neutrophils % 20.0 H D Lymphocytes % (Manual) 12.0 L Metamyelocytes % Neutrophils # (Manual) 0.6 L Lymphocytes # (Manual) 0.1 L APTT 39.2 H Potassium 3.0 L Chloride Carbon Dioxide BUN 44.0 H Creatinine 1.4 H BUN/Creatinine Ratio 31 H Glucose 183 H Calculated Osmolality 285 H Calcium Magnesium Phosphorus Total Protein Albumin Stool Occult Blood Vancomycin Trough Crossmatch ([facility]) 12/02/17 12/02/17 12/02/17 11:34 11:34 21:46 WBC RBC Hgb 5.0 L* Hct RDW Std Deviation Plt Count Neutrophils % (Manual) Band Neutrophils % Lymphocytes % (Manual) Metamyelocytes % Neutrophils # (Manual) Lymphocytes # (Manual) APTT Potassium Chloride Carbon Dioxide BUN Creatinine BUN/Creatinine Ratio Glucose Calculated Osmolality Calcium Magnesium 1.4 L Phosphorus Total Protein 5.8 L Albumin 3.0 L Stool Occult Blood Vancomycin Trough Crossmatch ([facility]) See Detail 12/03/17 12/03/17 12/03/17 06:35 06:35 10:33 WBC 1.7 L* D RBC 2.01 L Hgb 6.1 L D 6.1 L Hct 18.6 L D RDW Std Deviation 52.9 H Plt Count 22 L* D Neutrophils % (Manual) Band Neutrophils % 16.0 H Lymphocytes % (Manual) 17.0 L Metamyelocytes % Neutrophils # (Manual) 1.1 L Lymphocytes # (Manual) 0.3 L APTT Potassium 3.4 L Chloride 109 H D Carbon Dioxide BUN 32.0 H Creatinine BUN/Creatinine Ratio 32 H Glucose 134 H Calculated Osmolality Calcium 7.8 L D Magnesium Phosphorus Total Protein Albumin Stool Occult Blood Vancomycin Trough Crossmatch ([facility]) 12/03/17 12/03/17 12/04/17 14:35 19:22 04:22 WBC RBC 2.88 L Hgb 7.5 L D 9.7 L D 8.7 L Hct 25.3 L D RDW Std Deviation Plt Count 16 L* Neutrophils % (Manual) Band Neutrophils % 20.0 H Lymphocytes % (Manual) 16.0 L Metamyelocytes % Neutrophils # (Manual) Lymphocytes # (Manual) 0.7 L APTT Potassium Chloride Carbon Dioxide BUN Creatinine BUN/Creatinine Ratio Glucose Calculated Osmolality Calcium Magnesium Phosphorus Total Protein Albumin Stool Occult Blood Vancomycin Trough Crossmatch ([facility]) 12/04/17 12/04/17 12/04/17 04:22 09:52 13:27 WBC RBC Hgb 9.2 L Hct RDW Std Deviation Plt Count Neutrophils % (Manual) Band Neutrophils % Lymphocytes % (Manual) Metamyelocytes % Neutrophils # (Manual) Lymphocytes # (Manual) APTT Potassium 2.8 L* Chloride Carbon Dioxide BUN 22.0 H Creatinine BUN/Creatinine Ratio Glucose 116 H Calculated Osmolality Calcium 7.6 L Magnesium 1.5 L D Phosphorus Total Protein Albumin Stool Occult Blood Positive A Vancomycin Trough Crossmatch ([facility]) 12/04/17 12/04/17 12/04/17 14:25 14:25 16:17 WBC RBC Hgb 9.0 L Hct RDW Std Deviation Plt Count 39 L D Neutrophils % (Manual) Band Neutrophils % Lymphocytes % (Manual) Metamyelocytes % Neutrophils # (Manual) Lymphocytes # (Manual) APTT Potassium 2.9 L* Chloride Carbon Dioxide BUN Creatinine BUN/Creatinine Ratio Glucose 182 H Calculated Osmolality Calcium 7.7 L Magnesium Phosphorus Total Protein Albumin Stool Occult Blood Vancomycin Trough Crossmatch ([facility]) 12/04/17 12/05/17 12/05/17 21:32 04:18 04:18 WBC RBC 2.89 L Hgb 8.8 L 8.7 L Hct 25.5 L RDW Std Deviation Plt Count 40 L Neutrophils % (Manual) 77.0 H Band Neutrophils % 16.0 H Lymphocytes % (Manual) 4.0 L Metamyelocytes % Neutrophils # (Manual) Lymphocytes # (Manual) 0.3 L APTT Potassium Chloride Carbon Dioxide BUN Creatinine BUN/Creatinine Ratio Glucose 120 H Calculated Osmolality Calcium 7.6 L Magnesium Phosphorus Total Protein Albumin Stool Occult Blood Vancomycin Trough Crossmatch ([facility]) 12/05/17 12/06/17 12/06/17 15:07 07:11 07:11 WBC 12.2 H D RBC 3.06 L Hgb 9.3 L Hct 27.6 L RDW Std Deviation 50.7 H Plt Count 38 L Neutrophils % (Manual) 87.0 H Band Neutrophils % 7.0 H Lymphocytes % (Manual) 3.0 L Metamyelocytes % 1.0 H Neutrophils # (Manual) 10.6 H Lymphocytes # (Manual) 0.4 L APTT Potassium 3.1 L Chloride Carbon Dioxide BUN Creatinine BUN/Creatinine Ratio Glucose Calculated Osmolality Calcium 7.6 L Magnesium 1.5 L Phosphorus 1.6 L Total Protein Albumin 2.9 L Stool Occult Blood Vancomycin Trough 10.80 L Crossmatch ([facility]) 12/07/17 12/07/17 04:18 04:18 WBC 11.5 H RBC 2.86 L Hgb 8.6 L Hct 26.3 L RDW Std Deviation 51.0 H Plt Count 46 L Neutrophils % (Manual) 85.0 H Band Neutrophils % Lymphocytes % (Manual) 3.0 L Metamyelocytes % Neutrophils # (Manual) 9.8 H Lymphocytes # (Manual) 0.3 L APTT Potassium 3.0 L Chloride Carbon Dioxide 32 H BUN Creatinine BUN/Creatinine Ratio Glucose 124 H Calculated Osmolality Calcium 6.8 L D Magnesium 1.5 L Phosphorus Total Protein Albumin Stool Occult Blood Vancomycin Trough Crossmatch ([facility]) - Diagnostic Findings Chest x-ray: report reviewed, image reviewed CT scan - chest: report reviewed, image reviewed Assessment and Plan (1) Acute respiratory failure with hypoxia Status: Acute Assessment and plan: continue O2 (currently 4 lpm O2 by de) to keep sat >90%. Current Visit: Yes (2) Non-small cell lung cancer Status: Chronic Assessment and plan: treated over the last 24 months for NSCLCA with chemo. Currently on Carboplatin /Alimta. Presented with Neutropenic fever, pneumonia symptoms. CT chest shows LLL pleural based density. I recommend checking CT chest that was recently done at [facility] so we can compare with the current imaging. I discussed possible bronchoscopy with the patient and family. At this time the patient desires to take a more conservative approach and use medications only, avoiding procedures. Current Visit: No (3) Pneumonia Status: Acute Assessment and plan: continue empiric therapy with Vanco/Merrem. Add empiric corticosteroids and diurese as tolerated. If not improving we will discuss the next steps. Current Visit: Yes - Time Spent With Patient Total time spent is greater than 50% in coordination of care (as documented) at patient's floor/unit and/or counseling patient: 25 - 35 minutes
[2017-12-07] MEDS: METHYLPREDNISOLONE SOD SUCC 125mg/2ml INJECTION IVP SCH ×2 (17:58→22:33)
[2017-12-07] MEDS: LISINOPRIL 5 MG TABLET PO SCH (22:34)
[2017-12-08] MEDS: MEROPENEM 500 MG in NS 50 ML IV SCH ×4 (00:45→23:53)
[2017-12-08] MEDS: METHYLPREDNISOLONE SOD SUCC 125mg/2ml INJECTION IVP SCH ×4 (03:03→21:22)
[2017-12-08] MEDS: SUCRALFATE 1 GM TABLET PO SCH ×4 (05:56→21:21)
[2017-12-08] MEDS: ALBUTEROL/IPRATROPIUM 2.5mg-0.5mg/3ml NEB AEROSOL SCH ×4 (08:57→20:47)
[2017-12-08] MEDS: AMLODIPINE 5 MG TABLET PO SCH (09:49)
[2017-12-08] MEDS: FOLIC ACID 1 MG TABLET PO SCH (09:49)
[2017-12-08] MEDS: PHOSPHORUS 250 MG TABLET PO SCH ×4 (09:49→21:20)
[2017-12-08] MEDS: MAGNESIUM OXIDE 400 MG TABLET PO SCH (10:13)
[2017-12-08] MEDS: PANTOPRAZOLE 40 MG INJECTION IVP SCH ×2 (10:14→21:22)
[2017-12-08] MEDS: SALINE FLUSH 10ml SYRINGE IVF PRN ×4 (10:14→21:22)
--- NOTE | 2017-12-08 15:25 | Progress Note ---
- Date 12/08/17 Subjective: Myra is seen this afternoon in follow-up. She is up in the chair watching television. Continues to be on 4 liters of oxygen by nasal cannula to maintain saturations. She states that overall her breathing feels improved today. Denies having any pain or nausea. Does report having some loose stools overnight. Appetite is good. Objective Vital signs: Temperature 97.8 F 12/08/17 08:00 Pulse Rate 107 H 12/08/17 08:00 Respiratory Rate 18 12/08/17 12:16 Blood Pressure 141/71 H 12/08/17 08:00 Pulse Oximetry 95 12/08/17 08:57 Height/Weight/BMI: Height 1.63 m Weight 59.6 kg Body Mass Index 22.8 - Constitutional Present: no acute distress, well nourished, well developed - Routine HEENT Exam Eye: Present: EOMI ENT: Present: mucous membranes moist, dentition normal - Routine Respiratory Exam Absent: wheezes Comments: Right diminished, Left clear - Routine Cardiovascular Exam Present: RRR, S1, S2. Absent: murmur - Routine Abdominal Exam Present: soft, normoactive bowel sounds, non distended. Absent: tenderness - Routine Extremities Exam Present: normal capillary refill - Routine Skin Exam Present: intact, dry, warm - Routine Neurological Exam Present: alert, oriented X3, CN II-XII intact - Routine Lymphatic Exam Lymphatic: Absent: adenopathy - Routine Psychiatric Exam Present: normal affect, cooperative Results - Labs CBC & Chem 7: 12/08/17 04:14 12/08/17 04:14 Microbiology Results: Microbiology 12/05/17 10:38 Port/Picc Blood Culture - Preliminary No Growth After 3 Days 12/05/17 10:37 Port/Picc Blood Culture - Preliminary No Growth After 3 Days 12/02/17 15:39 Peripheral/Iv Start Gram Stain - Final 12/02/17 15:39 Peripheral/Iv Start Blood Culture - Final Streptococcus mitis/oralis 12/02/17 15:31 Peripheral/Iv Start Blood Culture - Final No Growth After 5 Days Assessment and Plan (1) Pneumonia Current visit: Yes Status: Acute Assessment and Plan: Assessment GI bleed with symptomatic marked anemia, hgb 4.7. History of ibuprofen/ASA use. Hypoxia - sats 84% on 1L with ambulation Tachycardia Severe pancytopenia and neutropenia Enterococcal bacteremia Pneumonia LLL cavitary mass Hypokalemia (POA) Hypomagnesemia (POA) Hypophosphatemia Dizziness/Weakness Metastatic lung cancer, sees Dr. Rushing Stroke (right thalamic lacunar infarct), 2017 - no deficits - on ASA Hypercholesterolemia Former smoker Plan Hypokalemia- Resume home PO potassium Continue on K-Phos and Mag ox for PO supplementation Continue Merrem and Vanco for enterococcal bacteremia. Recommendations 5-7 days of IV tx from negative blood cultures Hgb remains stable. Continue on PO Carafate Wean down oxygen as able Encourage activity as able Recheck CBC and BMP tomorrow DVT Prophylaxis: SCD's GI Prophylaxis: Protonix Resuscitation Status: Do Not Resuscitate - Time spent with patient Time with patient PN: 25 minutes - Physician Narrative Physician: Yehuda Feliciano MD Narrative: Date: 12/08/17 Time: 1908 Have independently interviewed and examined pt. Chart reviewed. Case discussed with my [employer]. Care plan developed with my supervision; agree with above. Doing better today-feels breathing easier. Was able to walk more in halls. Notes some cough/congestion. Eating well. No ab pain or nausea. Lungs: decreased, no distress on O2. CV: regular AB: soft nt BS decreased MSE : awake alert appropriate Plan: Continue with antibiotics and steroids. Encourage activities - cautioning patient to not over do it. Monitor lab. Hospital Course Summary Disclaimer: The visit summary below is not to be considered part of the above Progress Note. Hospital Course: 12/02/17 Admit, inpatient status, under the hospitalist service. GI bleed/tachycardia/symptomatic anemia -2U PRBC, 1 platelet pack, s/p 2L NS in ED, consult Dr. Kraft, hold ibu/ASA, IV PPI RUL pneumonia, immunocompromised/neutropenic -Vancomycin, Levaquin, cefepime - Neutropenic precautions Hypokalemia & Hypomagnesemia -Replace IV -Telemetry Advanced Directives -Daughter & Son are DPOAs -Would like to be DNR in and out- of-hospital. 12/03/17 Hgb 6.1 following 2U PRBC -- transfuse x2 more unit. Plt improved to 22K. ANC 1360 s/p Granix yesterday. Dr. Kraft not recommending procedures at this time but agrees w/ empiric tx for PUD. Will add oral Carafate to IV Protonix. Repeat CXR d/t hypoxia and increased dyspnea. Schedule DuoNeb QID. Cont IS. Wean O2 as able. Continue Vancomycin/Levaquin/cefepime day #2 for pneumonia. K improved to 3.4 - will give add'l oral KDur. Mg up to 1.9. 12/04/17 Hgb improved to 9.2 today Plt back to 16K today s/p Granix 7/6 - monitor for need Dr. Kraft not recommending procedures at this time but agrees w/ empiric tx for PUD. Repeat CXR with increasing RUL airspace disease. Schedule DuoNeb QID. Cont IS. Wean O2 as able. On Vancomycin/Levaquin/cefepime day #3 for pneumonia. Blood cultures with 1/2 enterococcus species - change to vanco and merrem and await susceptibilities K and mag replaced by night staff. Repeat now and replace. Give another dose of lasix with platelets. CXR in am 12/05/17 HGB trending down slowly, but remains above 8- monitor. FOB +. Continue PPI/Carafate- pt declined endoscopy. Slow improvement in leukocytosis, thrombocytopenia- s/p platelet transfusion, continue Granix. Persistent tachycardia, ongoing dyspnea. She did get Lasix yesterday. Will add low dose metoprolol for HR control- BP should support it. Continue telemetry monitoring. Check ECHO in AM. Repeat CXR in AM. Metastatic lung cancer- may need to consider CT if CXR does not improve on current abx therapy. Continue Meropenem. Consult Pharmacy to help with Vanco dosing. BC on admission + for Enterococcus- continue Vanco and await c/s. Follow up BC- NGTD. Continue O2, Nebs, supportive care. SCDs- avoid blood thinners given slow GI blood losses. DNR status noted. 12/06/17 CTA chest done yesterday shows a 4.7 x 3.3 cm thick-walled cavitary mass in the superior segment of the left lower lobe with an air-fluid level which may be secondary to a pulmonary abscess or infected bulla; infiltrates vs. edema; also b/l pleural effusions and chronic lung changes. WBC 12.2. BC + Enterococcus; c/ s pending. Repeat BC NGTD. Continue vancomycin and Merrem. Continue nebs. Consult Dr. Holm. Diet advanced. Hgb stable, 9.3. Poor food intake per RN -- may need to get calorie count if appetite doesn't improve now that it's been advanced. Cont IV PPI. K 3.1, Mg 1.5, Phos 1.6 -- KDur 20 mEq TID (taper as needed); MagOx 800 mg daily ; K-Phos 1000 mg WMHS. Echo done, pending. Tachycardic with elevated BP; increase metoprolol tartrate to 25 mg BID. Consult PT/OT. 12/07/17 Ongoing electrolyte deficiencies - d/t poor tolerance of PO meds will replace K (3.0) & Mg (1.5) IV. Phos improved to 2.9 Echo done: EF 60-65%; mild MR, mild TR, mild-mod PH Remains tachycardic; metoprolol was increased yesterday. Weight is going back up , but clinically appears dry. Oral intake has been poor. She doesn't like the consistency of [place]. May need to resume IVF. WBC 11.5, hgb 8.6. Continue Merrem and vanco for enterococcal bacteremia. Consider ID consult. Repeat BC NGTD. Discussed case with Dr Holm. Dr Holm discussed with patient and family about possible bronch-would like to hold on that for now. He recommends trial of steroids to see if will help-will start Solu-Medrol 125mg IV q 6 hours. Replace Mg and potassium IV secondary to tolerability with oral - will place oral potassium on hold. As BP elevated, will start low dose lisinopril 5mg nightly to help BP and preserve potassium. 12/08/17 Hypokalemia- Resume home PO potassium Continue on K-Phos and Mag ox for PO supplementation Continue Merrem and Vanco for enterococcal bacteremia. Recommendations 5-7 days of IV tx from negative blood cultures Hgb remains stable. Continue on PO Carafate Wean down oxygen as able Encourage activity as able Recheck CBC and BMP tomorrow
[2017-12-08] MEDS: VANCOMYCIN 1,500 MG in NS 250ml 500 ML IV SCH (19:40)
[2017-12-08] MEDS: LISINOPRIL 5 MG TABLET PO SCH (21:21)
[2017-12-09] MEDS: ACETAMINOPHEN 325 MG TABLET PO PRN (00:02)
[2017-12-09] MEDS: METHYLPREDNISOLONE SOD SUCC 125mg/2ml INJECTION IVP SCH ×4 (03:42→20:17)
[2017-12-09] MEDS: SALINE FLUSH 10ml SYRINGE IVF PRN ×2 (03:43→20:18)
[2017-12-09] MEDS: SUCRALFATE 1 GM TABLET PO SCH ×4 (06:08→20:17)
[2017-12-09] MEDS: AMLODIPINE 5 MG TABLET PO SCH (08:39)
[2017-12-09] MEDS: PANTOPRAZOLE 40 MG INJECTION IVP SCH ×2 (08:40→20:18)
[2017-12-09] MEDS: FOLIC ACID 1 MG TABLET PO SCH (08:40)
[2017-12-09] MEDS: MAGNESIUM OXIDE 400 MG TABLET PO SCH ×2 (08:40→20:17)
[2017-12-09] MEDS: PHOSPHORUS 250 MG TABLET PO SCH ×2 (08:41→12:23)
[2017-12-09] MEDS: MEROPENEM 500 MG in NS 50 ML IV SCH ×2 (09:03→18:36)
[2017-12-09] MEDS: ALBUTEROL/IPRATROPIUM 2.5mg-0.5mg/3ml NEB AEROSOL SCH ×4 (09:51→20:37)
[2017-12-09] MEDS: LIDOCAINE 1% INJ 10 MG, POTASSIUM CHLORIDE INJ 10 MEQ in NS 100 ML IV SCH ×4 (12:23→15:31)
--- NOTE | 2017-12-09 13:00 | Pulmonology Progress Note ---
Subjective Principal diagnosis: hypoxia Interval history: poor appetite no new symptoms, though feels "tired" today on 3.5 lpm O2 by nc at rest. Exam Vital signs: Temperature 96.1 F L 12/09/17 07:12 Pulse Rate 86 12/09/17 08:00 Respiratory Rate 18 12/09/17 09:53 Blood Pressure 123/67 12/09/17 07:12 Pulse Oximetry 94 12/09/17 09:53 Inpatient Medications: Generic Name Dose Route Start Last Admin Trade Name Freq PRN Reason Stop Dose Admin Acetaminophen 650 mg 12/02/17 17:10 12/09/17 00:02 Tylenol PO 650 mg Q5H PRN Administration Discomfort Albuterol/Ipratropium 3 ml 12/02/17 15:16 Duoneb IPPB RTQID PRN Albuterol/Ipratropium 3 ml 12/03/17 15:00 12/09/17 09:51 Duoneb AEROSOL 3 ml RTQID MARINA Administration Amlodipine Besylate 5 mg 12/06/17 09:00 12/09/17 08:39 Norvasc PO 5 mg DAILY MARINA Administration Bisacodyl 10 mg 12/02/17 13:40 Dulcolax RECTALLY DAILY PRN Constipation Folic Acid 1 mg 12/03/17 09:00 12/09/17 08:40 Folate PO 1 mg DAILY MARINA Administration Meropenem 500 mg/ Sodium 50 mls @ 100 mls/hr 12/04/17 16:00 12/09/17 09:33 Chloride IV Infused Q8H MARINA Infusion Vancomycin HCl 1,500 mg/ 500 mls @ 250 mls/hr 12/08/17 19:00 12/08/17 22:10 Sodium Chloride IV Infused Q18H MARINA Infusion Lidocaine HCl 10 mg/ Potassium 100 mls @ 100 mls/hr 12/09/17 11:15 12/09/17 12:23 Chloride 10 meq/ Sodium IV 12/09/17 15:28 100 mls/hr Chloride .Q1H MARINA Administration Lisinopril 5 mg 12/07/17 21:00 12/08/17 21:21 Prinivil PO 5 mg HS MARINA Administration Magnesium Hydroxide 30 ml 12/02/17 13:40 Mom PO DAILY PRN Constipation Magnesium Oxide 800 mg 12/06/17 11:00 12/09/17 08:40 Magox PO 800 mg DAILY MARINA Administration Methylprednisolone Sodium Succinate 125 mg 12/07/17 17:15 12/09/17 08:40 Solu-Medrol IVP 125 mg Q6HR MARINA Administration Metoprolol Tartrate 25 mg 12/06/17 17:30 12/09/17 08:39 Lopressor PO 25 mg BIDWM MARINA Administration Morphine Sulfate 4 mg 12/02/17 17:10 Morphine Sulfate Inj IVP Q3H PRN Pain Ondansetron HCl 4 mg 12/02/17 13:40 Zofran IVP Q6H PRN Nausea &/or vomiting Pantoprazole Sodium 40 mg 12/02/17 13:44 12/09/17 08:40 Protonix Iv IVP 40 mg BID MARINA Administration Potassium Chloride 20 meq 12/06/17 12:00 12/09/17 12:30 K-Dur 20 Meq Tablet PO 20 meq TIDWM MARINA Administration Prochlorperazine Edisylate 10 mg 12/02/17 16:59 12/04/17 15:03 Compazine Iv IVP 10 mg Q6H PRN Administration Nausea &/or vomiting Senna/Docusate Sodium 1 tab 12/02/17 13:40 Senna Plus Tablet PO BID PRN Constipation Sodium Chloride 10 - 80 ml 12/02/17 11:30 12/09/17 03:43 Iv Flush IVF 10 ml PRN PRN Administration Flushing Sodium Chloride 500 ml 12/04/17 05:42 12/07/17 13:53 Normal Saline IV 500 ml PRN PRN Administration Sodium Phosphate 1,000 mg 12/06/17 12:00 12/09/17 12:23 K-Phos *Neutral* Tablet PO 1,000 mg WMHS MARINA Administration Sucralfate 1 gm 12/03/17 17:00 12/09/17 12:30 Carafate PO 1 gm ACHS MARINA Administration Discontinued Medications Generic Name Dose Route Start Last Admin Trade Name Freq PRN Reason Stop Dose Admin Alteplase, Recombinant 2 mg 12/06/17 12:05 12/06/17 12:54 Cathflo Activase IV 12/06/17 12:06 2 mg O ONE Administration Amlodipine Besylate 2.5 mg 12/04/17 09:00 12/06/17 12:06 Norvasc PO 12/06/17 09:00 Not Given DAILY MARINA Clonidine HCl 0.1 mg 12/03/17 17:44 12/03/17 18:24 Catapres PO 12/03/17 17:45 0.1 mg ONE TIME ONE Administration Furosemide 20 mg 12/03/17 18:35 12/03/17 18:41 Lasix 20 Mg/2 Ml IVP 12/03/17 18:36 20 mg ONCE ONE Administration Furosemide 20 mg 12/04/17 12:36 12/04/17 12:54 Lasix 20 Mg/2 Ml IVP 12/04/17 12:37 20 mg ONCE ONE Administration Sodium Chloride 1,000 mls @ 999 mls/hr 12/02/17 11:30 12/02/17 12:59 Normal Saline IV Infused .Q1H1M MARINA Infusion Sodium Chloride 1,000 mls @ 999.9 mls/hr 12/02/17 12:20 12/02/17 13:17 Normal Saline IV 12/02/17 13:19 999.9 mls/hr .Q1H ONE Administration Levofloxacin/Dextrose 750 mg in 150 mls @ 100 mls/hr 12/02/17 12:45 12/02/17 14:48 Levaquin 750 Mg Premix IV Infused Q24H MARINA Infusion Levofloxacin/Dextrose 750 mg in 150 mls @ 100 mls/hr 12/04/17 12:00 12/04/17 14:46 Levaquin 750 Mg Premix IV Infused Q48H MARINA Infusion Magnesium Sulfate/Dextrose 1 gm in 100 mls @ 100 mls/hr 12/02/17 15:00 00:15 Mag Sulf 1gm Premix IV 12/02/17 16:59 Infused Q1H MARINA Infusion Lidocaine HCl 10 mg/ Potassium 100 mls @ 100 mls/hr 12/02/17 15:00 12/03/17 02:55 Chloride 10 meq/ Sodium IV 12/02/17 19:13 Infused Chloride .Q1H MARINA Infusion Cefepime HCl 1 gm/ Sodium 100 mls @ 200 mls/hr 12/02/17 15:15 Chloride IV Q6H MARINA Levofloxacin/Dextrose 750 mg in 150 mls @ 100 mls/hr 12/03/17 12:00 Levaquin 750 Mg Premix IV Q24H MARINA Vancomycin HCl 750 mg/ Sodium 500 mls @ 250 mls/hr 12/02/17 15:11 12/02/17 21 :18 Chloride IV 12/02/17 15:12 Not Given O ONE Cefepime HCl 1 gm/ Sodium 100 mls @ 200 mls/hr 12/02/17 15:45 12/04/17 11:48 Chloride IV Infused Q8H MARINA Infusion Vancomycin HCl 1,250 mg/ 250 mls @ 200 mls/hr 12/02/17 17:00 12/02/17 21:28 Sodium Chloride IV 12/02/17 17:01 Infused O ONE Infusion Vancomycin HCl 1,000 mg/ 250 mls @ 250 mls/hr 12/03/17 16:00 12/05/17 17:27 Sodium Chloride IV Infused Q24H MARINA Infusion Magnesium Sulfate/Dextrose 1 gm in 100 mls @ 100 mls/hr 12/04/17 06:15 10:25 Mag Sulf 1gm Premix IV 12/04/17 08:14 Infused Q1H MARINA Infusion Lidocaine HCl 10 mg/ Potassium 100 mls @ 100 mls/hr 12/04/17 06:15 12/04/17 10:31 Chloride 10 meq/ Sodium IV 12/04/17 10:28 Not Given Chloride .Q1H MARINA Lidocaine HCl 10 mg/ Potassium 100 mls @ 100 mls/hr 12/04/17 07:30 12/04/17 13:00 Chloride 10 meq/ Dextrose IV 12/04/17 10:29 Infused .Q1H MARINA Infusion Vancomycin HCl 1,250 mg/ 250 mls @ 200 mls/hr 12/06/17 12:00 12/08/17 02:33 Sodium Chloride IV Infused Q18H MARINA Infusion Magnesium Sulfate/Dextrose 1 gm in 100 mls @ 100 mls/hr 12/07/17 09:08 12:44 Mag Sulf 1gm Premix IV 12/07/17 11:07 Infused Q1H MARINA Infusion Lidocaine HCl 10 mg/ Potassium 100 mls @ 100 mls/hr 12/07/17 10:00 12/07/17 17:47 Chloride 10 meq/ Sodium IV 12/07/17 14:13 100 mls/hr Chloride .Q1H MARINA Administration Metoprolol Tartrate 12.5 mg 12/05/17 17:30 12/06/17 08:31 Lopressor PO 12.5 mg BIDWM MARINA Administration Potassium Chloride 20 meq 12/03/17 12:02 12/03/17 12:25 K-Dur 20 Meq Tablet PO 12/03/17 12:03 20 meq O ONE Administration Potassium Chloride 40 meq 12/04/17 15:15 12/04/17 16:45 K-Dur 20 Meq Tablet PO 12/04/17 17:16 40 meq Q2H MARINA Administration Potassium Chloride 40 meq 12/09/17 05:51 12/09/17 06:06 K-Dur 20 Meq Tablet PO 12/09/17 05:52 40 meq O ONE Administration Sodium Chloride 500 ml 12/02/17 15:06 12/05/17 08:19 Normal Saline IV 500 ml PRN PRN Administration Tbo-Filgrastim 480 mcg 12/02/17 19:13 12/02/17 22:10 Granix SQ 12/02/17 19:14 480 mcg O ONE Administration Vancomycin HCl 1 each 12/02/17 15:11 12/03/17 09:11 Pharmacy Consult - Vancomycin 12/02/17 15:12 1 each O ONE Administration Vancomycin HCl 1 each 12/05/17 11:13 Pharmacy Consult - Vancomycin 12/05/17 11:14 O ONE - Constitutional no acute distress - Routine HEENT Exam Head: Present: normocephalic, atraumatic Eye: Absent: conjunctival icterus - Routine Neck Exam Present: supple - Routine Respiratory Exam Present: decreased breath sounds Comments: few rales at the bases bilaterally - Routine Cardiovascular Exam Present: RRR Results - Laboratory Findings Laboratory: Laboratory Results - last 48 hr 12/07/17 12/08/17 12/08/17 22:24 04:14 04:14 WBC 12.8 H RBC 2.88 L Hgb 8.7 L Hct 26.6 L MCV 92.4 MCH 30.2 MCHC 32.7 RDW Std Deviation 51.3 H Plt Count 55 L MPV 10.9 Immature Gran % (Auto) Not performed Neut % (Auto) Not performed Lymph % (Auto) Not performed [place] % (Auto) Not performed Eos % (Auto) Not performed Baso % (Auto) Not performed Neut # (Auto) Not performed Lymph # (Auto) Not performed [place] # (Auto) Not performed Eos # (Auto) Not performed Baso # (Auto) Not performed Abs Immat Gran (auto) Not performed Neutrophils % (Manual) 93.0 H Band Neutrophils % Lymphocytes % (Manual) 1.0 L Monocytes % (Manual) 4.0 Metamyelocytes % 2.0 H Neutrophils # (Manual) 11.9 H Band Neutrophils # Lymphocytes # (Manual) 0.1 L Monocytes # (Manual) 0.5 Metamyelocytes # 0.3 Nucleated RBCs Poikilocytosis 1+ Anisocytosis 1+ RBC Morph Comment Abnormal Turbidity < 20 Sodium 143 Potassium 3.2 L Chloride 101 Carbon Dioxide 32 H Anion Gap 10 BUN 12.0 Creatinine 0.7 GFR Calculation 80 BUN/Creatinine Ratio 17 Glucose 208 H Calculated Osmolality 281 H Calcium 6.4 L Phosphorus 3.8 Magnesium 1.8 D Total Bilirubin 0.50 Icterus Index < 2 AST 22 ALT 13 Alkaline Phosphatase 126 Total Protein 5.9 L Albumin 2.9 L Globulin 3.0 Albumin/Globulin Ratio 1.0 L Specimen Hemolysis < 15 Vancomycin Trough 14.30 L 12/09/17 12/09/17 12/09/17 04:48 04:48 12:05 WBC 12.6 H RBC 2.41 L Hgb 7.3 L D Hct 22.3 L D MCV 92.5 MCH 30.3 MCHC 32.7 RDW Std Deviation 51.1 H Plt Count 66 L MPV 11.2 Immature Gran % (Auto) Not performed Neut % (Auto) Not performed Lymph % (Auto) Not performed [place] % (Auto) Not performed Eos % (Auto) Not performed Baso % (Auto) Not performed Neut # (Auto) Not performed Lymph # (Auto) Not performed [place] # (Auto) Not performed Eos # (Auto) Not performed Baso # (Auto) Not performed Abs Immat Gran (auto) Not performed Neutrophils % (Manual) 95.0 H Band Neutrophils % 1.0 Lymphocytes % (Manual) Monocytes % (Manual) 3.0 Metamyelocytes % 1.0 H Neutrophils # (Manual) 12.0 H Band Neutrophils # 0.1 Lymphocytes # (Manual) Monocytes # (Manual) 0.4 Metamyelocytes # 0.1 Nucleated RBCs 1 Poikilocytosis 1+ Anisocytosis 1+ RBC Morph Comment Abnormal Turbidity < 20 Sodium 142 Potassium 2.4 L* D 2.3 L* Chloride 100 Carbon Dioxide 30 Anion Gap 12 BUN 21.0 H D Creatinine 1.1 D GFR Calculation 47 BUN/Creatinine Ratio 19 Glucose 301 H Calculated Osmolality 287 H Calcium 5.6 L* D Phosphorus Magnesium 1.5 L Total Bilirubin Icterus Index < 2 AST ALT Alkaline Phosphatase Total Protein Albumin Globulin Albumin/Globulin Ratio Specimen Hemolysis < 15 < 15 Vancomycin Trough Assessment and Plan (1) Acute respiratory failure with hypoxia Status: Acute Assessment and plan: continue O2 (currently 3.5 lpm O2 by mn) to keep sat >90%. Current Visit: Yes (2) Non-small cell lung cancer Status: Chronic Assessment and plan: treated over the last 24 months for NSCLCA with chemo. Currently on Carboplatin /Alimta for at least 4 months according to the family. The patient had a CT chest 11/23 at [facility] showing developing left effusion and bilateral ground glass infiltrates. These have progressed since out. Presented with Neutropenic fever , pneumonia symptoms. CT chest shows LLL pleural based density and severe bilateral lung consolidations. I do have concern about opportunistic infections given her immune compromised condition. I doubt the new CT findings represent malignancy. I discussed possible bronchoscopy with the patient and family. At this time the patient desires to take a more conservative approach and use medications only, avoiding procedures. Current Visit: No (3) Pneumonia Status: Acute Assessment and plan: continue empiric therapy with Vanco/Merrem. Cannot rule out opportunistic infection. I will check Aspergillus antigens. Yesterday we added empiric corticosteroids and will diurese as tolerated. If not improving we will discuss the next steps. Current Visit: Yes - Time Spent With Patient Total time spent is greater than 50% in coordination of care (as documented) at patient's floor/unit and/or counseling patient: less than 15 minutes
--- NOTE | 2017-12-09 15:41 | Progress Note ---
- Date 12/09/17 Subjective: Myra is feeling about the same, but is more tired today. She's been up with PT earlier today but hasn't been up walking much. She states that her breathing is about the same. She has a nonproductive cough. Her nausea has improved. She' s had loose stools since being admitted to the hospital, but they are brown in color now. She denies dizziness but feels weak overall. Objective Vital signs: Temperature 96.1 F L 12/09/17 07:12 Pulse Rate 86 12/09/17 08:00 Respiratory Rate 18 12/09/17 09:53 Blood Pressure 123/67 12/09/17 07:12 Pulse Oximetry 94 12/09/17 09:53 Rhythm: Sinus Tachycardia (Tele reviewed. ) Height/Weight/BMI: Height 1.63 m Weight 61.8 kg Body Mass Index 22.8 - Constitutional Present: no acute distress, well nourished, well developed, thin - Routine HEENT Exam Head: Present: normocephalic Eye: Present: PERRL. Absent: conjunctival icterus, scleral injection ENT: Present: oropharynx clear - Routine Respiratory Exam Present: decreased breath sounds (throughout but more pronouced in [place]), crackles (B/L with L>R) - Routine Cardiovascular Exam Present: RRR, S1, S2 - Routine Abdominal Exam Present: soft, normoactive bowel sounds, non distended, non tender - Routine Extremities Exam Present: edema (trace B/L ankles) - Routine Skin Exam Present: intact, dry, warm - Routine Neurological Exam Present: alert, oriented X3, normal speech - Routine Psychiatric Exam Present: normal affect, normal thought process, cooperative Results - Labs CBC & Chem 7: 12/09/17 04:48 12/09/17 12:05 Microbiology Results: Microbiology 12/05/17 10:38 Port/Picc Blood Culture - Preliminary No Growth After 4 Days 12/05/17 10:37 Port/Picc Blood Culture - Preliminary No Growth After 4 Days 12/02/17 15:39 Peripheral/Iv Start Gram Stain - Final 12/02/17 15:39 Peripheral/Iv Start Blood Culture - Final Streptococcus mitis/oralis 12/02/17 15:31 Peripheral/Iv Start Blood Culture - Final No Growth After 5 Days Assessment and Plan (1) Pneumonia Current visit: Yes Status: Acute Assessment and Plan: Assessment GI bleed with symptomatic marked anemia, hgb 4.7. History of ibuprofen/ASA use. Hypoxia - sats 84% on 1L with ambulation Tachycardia Severe pancytopenia and neutropenia Streptococcus bacteremia Pneumonia LLL cavitary mass Hypokalemia (POA) Hypomagnesemia (POA) Hypophosphatemia Dizziness/Weakness Metastatic lung cancer, sees Dr. Rushing Stroke (right thalamic lacunar infarct), 2017 - no deficits - on ASA Hypercholesterolemia Former smoker Plan Hypokalemia, 2.3 -- replace IV Mag 1.5 -- increase MagOx to BID DC KPhos -- recheck in am along with BMP, Mg BC results have been updated: strep mitis/oralis, sensitive to vanco. Cont Merrem as well. Would prefer to diurese d/t weight gain and overall increase in O2 needs, but with low K will check CXR first. Pt opting for conservative treatment - not wanting bronch. Dr. Holm ordered aspergillus ag. Hgb decreased to 7.3; repeat in am. WBC elevated - suspect steroids. DVT Prophylaxis: SCD's GI Prophylaxis: Protonix Resuscitation Status: Do Not Resuscitate - Time spent with patient Time with patient PN: 25 minutes - Physician Narrative Physician: Yehuda Feliciano MD Narrative: Date: 12/09/17 Time: 1621 Have independently interviewed and examined patient. Chart reviewed. Case discussed with my HYPOID GEAR TESTER. Care plan developed with my supervision; agree with above. A little more tired today (was walking a lot yesterday) but still able to work with therapy. Not out walking today though. Feels can take a deeper breath. Still with nonproductive cough. No pain with breathing. Urinating well. Eating well. Bowels moving. Lungs: decreased, crackles bilaterally CV: regular AB: soft nt/nd MSE: awake alert appropriate Plan: Continue with antibiotics, steroids, and neg treatments. IV KCl and Mg given today. Will give 50mg spironolactone to help motivate fluid and preserve potassium. Platelets stable. HGB trending down-possible need transfusion. Encourage continued activities. Monitor lab. Hospital Course Summary Disclaimer: The visit summary below is not to be considered part of the above Progress Note. Hospital Course: 12/02/17 Admit, inpatient status, under the hospitalist service. GI bleed/tachycardia/symptomatic anemia -2U PRBC, 1 platelet pack, s/p 2L NS in ED, consult Dr. Kraft, hold ibu/ASA, IV PPI RUL pneumonia, immunocompromised/neutropenic -Vancomycin, Levaquin, cefepime - Neutropenic precautions Hypokalemia & Hypomagnesemia -Replace IV -Telemetry Advanced Directives -Daughter & Son are DPOAs -Would like to be DNR in and out- of-hospital. 12/03/17 Hgb 6.1 following 2U PRBC -- transfuse x2 more unit. Plt improved to 22K. ANC 1360 s/p Granix yesterday. Dr. Kraft not recommending procedures at this time but agrees w/ empiric tx for PUD. Will add oral Carafate to IV Protonix. Repeat CXR d/t hypoxia and increased dyspnea. Schedule DuoNeb QID. Cont IS. Wean O2 as able. Continue Vancomycin/Levaquin/cefepime day #2 for pneumonia. K improved to 3.4 - will give add'l oral KDur. Mg up to 1.9. 12/04/17 Hgb improved to 9.2 today Plt back to 16K today s/p Granix / - monitor for need Dr. Kraft not recommending procedures at this time but agrees w/ empiric tx for PUD. Repeat CXR with increasing RUL airspace disease. Schedule DuoNeb QID. Cont IS. Wean O2 as able. On Vancomycin/Levaquin/cefepime day #3 for pneumonia. Blood cultures with 1/2 enterococcus species - change to vanco and merrem and await susceptibilities K and mag replaced by night staff. Repeat now and replace. Give another dose of lasix with platelets. CXR in am 12/05/17 HGB trending down slowly, but remains above 8- monitor. FOB +. Continue PPI/Carafate- pt declined endoscopy. Slow improvement in leukocytosis, thrombocytopenia- s/p platelet transfusion, continue Granix. Persistent tachycardia, ongoing dyspnea. She did get Lasix yesterday. Will add low dose metoprolol for HR control- BP should support it. Continue telemetry monitoring. Check ECHO in AM. Repeat CXR in AM. Metastatic lung cancer- may need to consider CT if CXR does not improve on current abx therapy. Continue Meropenem. Consult Pharmacy to help with Vanco dosing. BC on admission + for Enterococcus- continue Vanco and await c/s. Follow up BC- NGTD. Continue O2, Nebs, supportive care. SCDs- avoid blood thinners given slow GI blood losses. DNR status noted. 12/06/17 CTA chest done yesterday shows a 4.7 x 3.3 cm thick-walled cavitary mass in the superior segment of the left lower lobe with an air-fluid level which may be secondary to a pulmonary abscess or infected bulla; infiltrates vs. edema; also b/l pleural effusions and chronic lung changes. WBC 12.2. BC + Enterococcus; c/ s pending. Repeat BC NGTD. Continue vancomycin and Merrem. Continue nebs. Consult Dr. Holm. Diet advanced. Hgb stable, 9.3. Poor food intake per RN -- may need to get calorie count if appetite doesn't improve now that it's been advanced. Cont IV PPI. K 3.1, Mg 1.5, Phos 1.6 -- KDur 20 mEq TID (taper as needed); MagOx 800 mg daily ; K-Phos 1000 mg WMHS. Echo done, pending. Tachycardic with elevated BP; increase metoprolol tartrate to 25 mg BID. Consult PT/OT. 12/07/17 Ongoing electrolyte deficiencies - d/t poor tolerance of PO meds will replace K (3.0) & Mg (1.5) IV. Phos improved to 2.9 Echo done: EF 60-65%; mild MR, mild TR, mild-mod PH Remains tachycardic; metoprolol was increased yesterday. Weight is going back up , but clinically appears dry. Oral intake has been poor. She doesn't like the consistency of Mighty Shakes. May need to resume IVF. WBC 11.5, hgb 8.6. Continue Merrem and vanco for enterococcal bacteremia. Consider ID consult. Repeat BC NGTD. Discussed case with Dr Holm. Dr Holm discussed with patient and family about possible bronch-would like to hold on that for now. He recommends trial of steroids to see if will help-will start Solu-Medrol 125mg IV q 6 hours. Replace Mg and potassium IV secondary to tolerability with oral - will place oral potassium on hold. As BP elevated, will start low dose lisinopril 5mg nightly to help BP and preserve potassium. 12/08/17 Hypokalemia- Resume home PO potassium Continue on K-Phos and Mag ox for PO supplementation Continue Merrem and Vanco for enterococcal bacteremia. Recommendations 5-7 days of IV tx from negative blood cultures Hgb remains stable. Continue on PO Carafate 12/09/17 Hypokalemia, 2.3 -- replace IV Mag 1.5 -- increase MagOx to BID DC KPhos -- recheck in am along with BMP, Mg BC results have been updated: strep mitis/oralis, sensitive to vanco. Cont Merrem as well. Would prefer to diurese d/t weight gain and overall increase in O2 needs, but with low K will check CXR first. Pt opting for conservative treatment - not wanting bronch. Dr. Holm ordered aspergillus ag. Hgb decreased to 7.3; repeat in am. WBC elevated - suspect steroids.
[2017-12-09] MEDS ORDERED: SPIRONOLACTONE 50 MG TABLET PO ONE (16:15)
[2017-12-09] MEDS: VANCOMYCIN 1,500 MG in NS 250ml 500 ML IV SCH (16:31)
--- NOTE | 2017-12-09 16:37 | XRay Report ---
Indication: pneumonia PROCEDURE: XR chest 1V: Encounter: Initial Comparison: Chest x-ray dated December 06, [address] dated December 05, 2017 Findings: Continued significant consolidation in both upper lobes with minimal interval change allowing for differences in technique. Patchy right middle and lower lobe infiltrates are also grossly stable. Left pleural thickening and scarring. Small effusions. No pneumothorax. Heart size and mediastinal contours are stable. Right IJ port catheter. Impression: No significant change in bilateral infiltrates. .
[2017-12-09] MEDS: MAGNESIUM SULFATE 1gm PREMIX 1 GM/100 ML BAG IV SCH ×2 (19:24→20:44)
[2017-12-09] MEDS: LISINOPRIL 5 MG TABLET PO SCH (20:16)
[2017-12-10] MEDS: MEROPENEM 500 MG in NS 50 ML IV SCH ×3 (00:02→16:33)
[2017-12-10] MEDS: ACETAMINOPHEN 325 MG TABLET PO PRN ×2 (01:19→21:52)
[2017-12-10] MEDS: SALINE FLUSH 10ml SYRINGE IVF PRN ×3 (03:24→15:32)
[2017-12-10] MEDS: METHYLPREDNISOLONE SOD SUCC 125mg/2ml INJECTION IVP SCH ×4 (03:24→21:54)
[2017-12-10] MEDS: SUCRALFATE 1 GM TABLET PO SCH ×4 (06:28→21:52)
[2017-12-10] MEDS: NS FLUSH BAG 500ml IV PRN (06:29)
[2017-12-10] MEDS: ALBUTEROL/IPRATROPIUM 2.5mg-0.5mg/3ml NEB AEROSOL SCH ×4 (07:30→18:49)
[2017-12-10] MEDS: VANCOMYCIN 1,500 MG in NS 250ml 500 ML IV SCH (07:50)
[2017-12-10] MEDS: AMLODIPINE 5 MG TABLET PO SCH (08:16)
[2017-12-10] MEDS: PANTOPRAZOLE 40 MG INJECTION IVP SCH ×2 (08:40→21:51)
[2017-12-10] MEDS: MAGNESIUM OXIDE 400 MG TABLET PO SCH ×2 (08:41→21:53)
[2017-12-10] MEDS: FOLIC ACID 1 MG TABLET PO SCH (08:41)
[2017-12-10] MEDS: POTASSIUM CHLORIDE PREMIX 10 MEQ/100 ML BAG IV SCH ×4 (10:33→14:12)
[2017-12-10] MEDS ORDERED: SPIRONOLACTONE 50 MG TABLET PO ONE (13:00)
--- NOTE | 2017-12-10 14:08 | Progress Note ---
- Date 12/10/17 Subjective: Myra is seen resting this afternoon. She states that she is feeling much better today and woke up early to sit in the chair. She continues on 2 liters without distress. Mild respiratory wheezing. Denies having any pain. Appetite is good and she is attempting to increase protein. Blood pressure stable. Objective Vital signs: Temperature 97.2 F 12/10/17 08:08 Pulse Rate 90 12/10/17 10:00 Respiratory Rate 20 12/10/17 11:15 Blood Pressure 129/66 12/10/17 10:00 Pulse Oximetry 95 12/10/17 11:15 Height/Weight/BMI: Height 1.63 m Weight 64.2 kg Body Mass Index 22.8 - Constitutional Present: no acute distress, well nourished, well developed - Routine HEENT Exam Eye: Present: EOMI ENT: Present: mucous membranes moist, dentition normal - Routine Respiratory Exam Present: wheezes (Faint expiratory) - Routine Cardiovascular Exam Present: RRR, S1, S2. Absent: murmur - Routine Abdominal Exam Present: soft, normoactive bowel sounds, non distended. Absent: tenderness - Routine Extremities Exam Present: normal capillary refill - Routine Skin Exam Present: intact, dry, warm - Routine Neurological Exam Present: alert, oriented X3, CN II-XII intact, moving all extremities - Routine Lymphatic Exam Lymphatic: Absent: adenopathy - Routine Psychiatric Exam Present: normal affect, normal thought process, cooperative Results - Labs CBC & Chem 7: 12/10/17 04:35 12/10/17 06:29 Microbiology Results: Microbiology 12/05/17 10:37 Port/Picc Blood Culture - Final No Growth After 5 Days 12/05/17 10:38 Port/Picc Blood Culture - Final No Growth After 5 Days 12/02/17 15:39 Peripheral/Iv Start Gram Stain - Final 12/02/17 15:39 Peripheral/Iv Start Blood Culture - Final Streptococcus mitis/oralis 12/02/17 15:31 Peripheral/Iv Start Blood Culture - Final No Growth After 5 Days Assessment and Plan (1) Pneumonia Current visit: Yes Status: Acute Assessment and Plan: Assessment GI bleed with symptomatic marked anemia, hgb 4.7. History of ibuprofen/ASA use. Hypoxia - sats 84% on 1L with ambulation Tachycardia Severe pancytopenia and neutropenia Streptococcus bacteremia Pneumonia LLL cavitary mass Hypokalemia (POA) Hypomagnesemia (POA) Hypophosphatemia Dizziness/Weakness Metastatic lung cancer, sees Dr. Rushing Stroke (right thalamic lacunar infarct), 2017 - no deficits - on ASA Hypercholesterolemia Former smoker Plan Continued Hypokalemia, 2.8. Replace both IV and orally -- replace IV Magnesium improved to 2.1. BC results have been updated: strep mitis/oralis, sensitive to vanco. Cont Merrem as well. Appreciate consultation with Dr Holm Hgb remains low however is stable at decreased to 7.3 Continue to follow Leukocytosis- up to 18 today; likely steroid induced DVT Prophylaxis: SCD's Resuscitation Status: Do Not Resuscitate - Time spent with patient Time with patient PN: 25 minutes - Physician Narrative Physician: Yehuda Feliciano MD Narrative: Date: 12/10/17 Time: 1619 Have independently interviewed and examined pt. Chart reviewed. Case discussed with my GOLDBEATER. Care plan developed with my supervision; agree with above. Doing well today-more energetic that yesterday. Feels breathing better-able to breath deeper. Less winded when up and moving. No pain with breathing. Eating well. No ab pain. Lungs: Decreased, improving air movement, scattered wheeze CV: regular AB: soft nt MSE: awake alert Plan: Continue with antibiotics. Possible wean steroids soon. Encourage activities. Replace potassium - IV boluses given this am. Will recheck this afternoon and repeat as indicated. Hospital Course Summary Disclaimer: The visit summary below is not to be considered part of the above Progress Note. Hospital Course: 12/02/17 Admit, inpatient status, under the hospitalist service. GI bleed/tachycardia/symptomatic anemia -2U PRBC, 1 platelet pack, s/p 2L NS in ED, consult Dr. Kraft, hold ibu/ASA, IV PPI RUL pneumonia, immunocompromised/neutropenic -Vancomycin, Levaquin, cefepime - Neutropenic precautions Hypokalemia & Hypomagnesemia -Replace IV -Telemetry Advanced Directives -Daughter & Son are DPOAs -Would like to be DNR in and out- of-hospital. 12/03/17 Hgb 6.1 following 2U PRBC -- transfuse x2 more unit. Plt improved to 22K. ANC 1360 s/p Granix yesterday. Dr. Kraft not recommending procedures at this time but agrees w/ empiric tx for PUD. Will add oral Carafate to IV Protonix. Repeat CXR d/t hypoxia and increased dyspnea. Schedule DuoNeb QID. Cont IS. Wean O2 as able. Continue Vancomycin/Levaquin/cefepime day #2 for pneumonia. K improved to 3.4 - will give add'l oral KDur. Mg up to 1.9. 12/04/17 Hgb improved to 9.2 today Plt back to 16K today s/p Granix / - monitor for need Dr. Kraft not recommending procedures at this time but agrees w/ empiric tx for PUD. Repeat CXR with increasing RUL airspace disease. Schedule DuoNeb QID. Cont IS. Wean O2 as able. On Vancomycin/Levaquin/cefepime day #3 for pneumonia. Blood cultures with 1/2 enterococcus species - change to vanco and merrem and await susceptibilities K and mag replaced by night staff. Repeat now and replace. Give another dose of lasix with platelets. CXR in am 12/05/17 HGB trending down slowly, but remains above 8- monitor. FOB +. Continue PPI/Carafate- pt declined endoscopy. Slow improvement in leukocytosis, thrombocytopenia- s/p platelet transfusion, continue Granix. Persistent tachycardia, ongoing dyspnea. She did get Lasix yesterday. Will add low dose metoprolol for HR control- BP should support it. Continue telemetry monitoring. Check ECHO in AM. Repeat CXR in AM. Metastatic lung cancer- may need to consider CT if CXR does not improve on current abx therapy. Continue Meropenem. Consult Pharmacy to help with Vanco dosing. BC on admission + for Enterococcus- continue Vanco and await c/s. Follow up BC- NGTD. Continue O2, Nebs, supportive care. SCDs- avoid blood thinners given slow GI blood losses. DNR status noted. 12/06/17 CTA chest done yesterday shows a 4.7 x 3.3 cm thick-walled cavitary mass in the superior segment of the left lower lobe with an air-fluid level which may be secondary to a pulmonary abscess or infected bulla; infiltrates vs. edema; also b/l pleural effusions and chronic lung changes. WBC 12.2. BC + Enterococcus; c/ s pending. Repeat BC NGTD. Continue vancomycin and Merrem. Continue nebs. Consult Dr. Holm. Diet advanced. Hgb stable, 9.3. Poor food intake per RN -- may need to get calorie count if appetite doesn't improve now that it's been advanced. Cont IV PPI. K 3.1, Mg 1.5, Phos 1.6 -- KDur 20 mEq TID (taper as needed); MagOx 800 mg daily ; K-Phos 1000 mg WMHS. Echo done, pending. Tachycardic with elevated BP; increase metoprolol tartrate to 25 mg BID. Consult PT/OT. 12/07/17 Ongoing electrolyte deficiencies - d/t poor tolerance of PO meds will replace K (3.0) & Mg (1.5) IV. Phos improved to 2.9 Echo done: EF 60-65%; mild MR, mild TR, mild-mod PH Remains tachycardic; metoprolol was increased yesterday. Weight is going back up , but clinically appears dry. Oral intake has been poor. She doesn't like the consistency of Mighty Shakes. May need to resume IVF. WBC 11.5, hgb 8.6. Continue Merrem and vanco for enterococcal bacteremia. Consider ID consult. Repeat BC NGTD. Discussed case with Dr Holm. Dr Holm discussed with patient and family about possible bronch-would like to hold on that for now. He recommends trial of steroids to see if will help-will start Solu-Medrol 125mg IV q 6 hours. Replace Mg and potassium IV secondary to tolerability with oral - will place oral potassium on hold. As BP elevated, will start low dose lisinopril 5mg nightly to help BP and preserve potassium. 12/08/17 Hypokalemia- Resume home PO potassium Continue on K-Phos and Mag ox for PO supplementation Continue Merrem and Vanco for enterococcal bacteremia. Recommendations 5-7 days of IV tx from negative blood cultures Hgb remains stable. Continue on PO Carafate 12/09/17 Hypokalemia, 2.3 -- replace IV Mag 1.5 -- increase MagOx to BID DC KPhos -- recheck in am along with BMP, Mg BC results have been updated: strep mitis/oralis, sensitive to vanco. Cont Merrem as well. Would prefer to diurese d/t weight gain and overall increase in O2 needs, but with low K will check CXR first. Pt opting for conservative treatment - not wanting bronch. Dr. Holm ordered aspergillus ag. Hgb decreased to 7.3; repeat in am. WBC elevated - suspect steroids. 12/10/17 Continued Hypokalemia, 2.8. Replace both IV and orally -- replace IV Magnesium improved to 2.1. BC results have been updated: strep mitis/oralis, sensitive to vanco. Cont Merrem as well. Appreciate consultation with Dr Holm Hgb remains low however is stable at decreased to 7.3 Continue to follow Leukocytosis- up to 18 today; likely steroid induced
--- NOTE | 2017-12-10 14:34 | Pharmacy Consult-Antibiotics ---
Pharmacy Consult-Vancomycin - Laboratory Information WBC 18.7 T/MM3 (4.5-11.0) H D 12/10/17 04:35 BUN 25.0 MG/DL (7-17) H 12/10/17 04:34 Creatinine 1.4 mg/dL (0.7-1.2) H D 12/10/17 06:29 Vancomycin Trough 34.12 ug/mL (15-20) H* 12/10/17 06:29 - Consult Information VANCOMYCIN CONSULT: (RECURRING) Vancomycin Trough = 34.12 mcg/ml. Today's SCr = 1.4 mg/dl. Patient was on Vancomycin 1500 mg IV q18hrs. Dose held and new dose calculated. Will give Vancomycin 1000 mg IV q24hrs starting 12/11/17. Will continue to monitor and make adjustments accordingly. Thank you. Nereida Leigh, PharmD
[2017-12-10] MEDS: LISINOPRIL 5 MG TABLET PO SCH (21:53)
[2017-12-11] MEDS: SALINE FLUSH 10ml SYRINGE IVF PRN ×5 (00:45→15:54)
[2017-12-11] MEDS: MEROPENEM 500 MG in NS 50 ML IV SCH ×2 (00:46→09:14)
[2017-12-11] MEDS: METHYLPREDNISOLONE SOD SUCC 125mg/2ml INJECTION IVP SCH ×4 (04:21→21:44)
[2017-12-11] MEDS: DiphenhydrAMINE 25 MG CAPSULE PO PRN ×2 (04:21→22:00)
[2017-12-11] MEDS ORDERED: VANCOMYCIN 1,000 MG in NS 250 ML IV SCH (06:00)
[2017-12-11] MEDS: SUCRALFATE 1 GM TABLET PO SCH ×4 (06:33→21:44)
[2017-12-11] MEDS: ALBUTEROL/IPRATROPIUM 2.5mg-0.5mg/3ml NEB AEROSOL SCH ×4 (07:22→20:17)
[2017-12-11] MEDS: FOLIC ACID 1 MG TABLET PO SCH (09:13)
[2017-12-11] MEDS: CALCIUM 600 + VIT D 400 TABLET PO SCH ×3 (09:13→21:44)
[2017-12-11] MEDS: AMLODIPINE 5 MG TABLET PO SCH (09:13)
[2017-12-11] MEDS: PANTOPRAZOLE 40 MG INJECTION IVP SCH ×2 (09:13→21:45)
[2017-12-11] MEDS: NS FLUSH BAG 500ml IV PRN (09:15)
[2017-12-11] MEDS ORDERED: DEXTROSE 50% SYRINGE 50ml (1 AMP) IVP PRN (13:21)
[2017-12-11] MEDS ORDERED: GLUCOSE ORAL GEL 40% 37.5gm PO PRN (13:21)
--- NOTE | 2017-12-11 13:39 | Progress Note ---
- Date 12/11/17 Subjective: The patient was seen this afternoon in her room accompanied by her daughter. The patient states she feels very swollen in her arms and legs and feels like she has a lot of extra fluid. She is also a little more short of breath today. She is currently on 4 L of oxygen. She has occasional cough which is nonproductive. She has some mild sore throat only when she coughs. She denies any pain with swallowing. She continues to feel weak. Her eyes have been watery for several months and she has some just to the right eye. He denies any chest pain. She has had some loose stools since admission. She denies any abdominal pain. She denies any dysuria. She states she didn't sleep well from steroids and was given Benadryl with good effect last night. Her appetite has been poor. Objective Vital signs: Temperature 96.2 F L 12/11/17 07:46 Pulse Rate 96 12/11/17 08:00 Respiratory Rate 18 12/11/17 11:07 Blood Pressure 154/74 H 12/11/17 07:46 Pulse Oximetry 93 12/11/17 11:07 Rhythm: Sinus Tachycardia (Tele reviewed. ) Height/Weight/BMI: Height 1.63 m Weight 66.2 kg Body Mass Index 22.8 Comments: Afebrile, still requiring 4 L of oxygen, normally she is on room air at home. Heart rate 101. Blood pressure 136/69 lying and blood pressures went up standing. Weight is 66.2 kg up from 56.9 on admission. Measured cumulative I&O is +8 L GEN-alert, oriented, no acute distress HEENT-oropharynx is moist, right eye is injected NECK-supple, mild JVD CV-regular rate and rhythm CHEST-wheezing throughout the bilateral lung mcconnell ABD-soft, nontender, positive bowel sounds -no Hall EXT-2+ lower extremity edema. She has edema of her arms which is nonpitting NEURO-focal deficits SKIN-warm and dry and without rashes Results - Labs CBC & Chem 7: 12/11/17 03:46 12/11/17 03:46 Labs: Calcium is low at 5.2, magnesium 2.2, Vanco trough yesterday was 34.2 Phosphorus Yesterday was 6.2 Microbiology Results: Microbiology 12/05/17 10:37 Port/Picc Blood Culture - Final No Growth After 5 Days 12/05/17 10:38 Port/Picc Blood Culture - Final No Growth After 5 Days 12/02/17 15:39 Peripheral/Iv Start Gram Stain - Final 12/02/17 15:39 Peripheral/Iv Start Blood Culture - Final Streptococcus mitis/oralis 12/02/17 15:31 Peripheral/Iv Start Blood Culture - Final No Growth After 5 Days - Echocardiogram History of Echocardiogram: Echocardiogram 12/06/2017. IMPRESSION. 1. Normal LV systolic function with ejection fraction of about 60%-65%. 2. Pleural effusion is present. 3. Mitral annulus calcification with mild mitral regurgitation. 4. Mild tricuspid regurgitation with [id number] pulmonary hypertension with estimated pulmonary artery systolic pressure of 43. Assessment and Plan (1) Pneumonia Current visit: Yes Status: Acute Assessment and Plan: Assessment GI bleed with symptomatic marked anemia, hgb 4.7. History of ibuprofen/ASA use. Anemia-hemoglobin currently stable at 7.3 and she has received a total of 4 units of blood this hospitalization Thrombocytopenia on admission-resolved post 2 platelet packs Acute hypoxic respiratory failure Tachycardia Severe pancytopenia and neutropenia -resolved Streptococcus mitis/oralis bacteremia 2 blood cultures on 12/02/2017-repeat blood cultures negative Pneumonia LLL cavitary lesion-abscess versus necrotic mass Hypokalemia (POA)-resolved Hypomagnesemia (POA) -resolved Hypophosphatemia-resolved Hyperphosphatemia Hyperglycemia secondary to steroids Limited overload -weight up 10 kg Dizziness/Weakness Metastatic lung cancer, sees Dr. Rushing - NSCLCA with chemo. Currently on Carboplatin/Alimta for at least 4 months. Also on xgeva Stroke (right thalamic lacunar infarct), 2017 - no deficits - on ASA Hypercholesterolemia Former smoker Elevated Vanco trough-vancomycin was adjusted by pharmacy Plan Hemoglobin is stable. White count is up today, likely secondary to steroids. No fevers. Hypokalemia has improved after IV and oral potassium. Basic metabolic today is mildly hemolyzed. Recheck basic metabolic profile this afternoon Recent wheezing today, weight is up 10 kg likely secondary to fluid overload. Start IV Lasix. Check chest x-ray and BNP today. Decrease IV steroids and monitor Monitor Accu-Cheks and give sliding scale insulin regarding hyperglycemia Check ionized calcium in the morning check PTH and vitamin D levels. Patient started on oral calcium and vitamin D 3 times a day. Discussed with Dr. Holm. Patient may benefit from bronchoscopy early this week if not improving. The patient states she is considering this procedure if she is not improving by then. She is currently on Merrem and vancomycin for pneumonia. One of 2 blood cultures on admission positive for strep mitis. Repeat blood cultures negative. DVT Prophylaxis: SCD's GI Prophylaxis: Protonix Resuscitation Status: Do Not Resuscitate - Physician Narrative Narrative: Date: 12/11/17 Time: 1334 Hospital Course Summary Disclaimer: The visit summary below is not to be considered part of the above Progress Note. Hospital Course: 12/02/17 Admit, inpatient status, under the hospitalist service. GI bleed/tachycardia/symptomatic anemia -2U PRBC, 1 platelet pack, s/p 2L NS in ED, consult Dr. Kraft, hold ibu/ASA, IV PPI RUL pneumonia, immunocompromised/neutropenic -Vancomycin, Levaquin, cefepime - Neutropenic precautions Hypokalemia & Hypomagnesemia -Replace IV -Telemetry Advanced Directives -Daughter & Son are DPOAs -Would like to be DNR in and out- of-hospital. 12/03/17 Hgb 6.1 following 2U PRBC -- transfuse x2 more unit. Plt improved to 22K. ANC 1360 s/p Granix yesterday. Dr. Kraft not recommending procedures at this time but agrees w/ empiric tx for PUD. Will add oral Carafate to IV Protonix. Repeat CXR d/t hypoxia and increased dyspnea. Schedule DuoNeb QID. Cont IS. Wean O2 as able. Continue Vancomycin/Levaquin/cefepime day #2 for pneumonia. K improved to 3.4 - will give add'l oral KDur. Mg up to 1.9. 12/04/17 Hgb improved to 9.2 today Plt back to 16K today s/p Granix 7/6 - monitor for need Dr. Kraft not recommending procedures at this time but agrees w/ empiric tx for PUD. Repeat CXR with increasing RUL airspace disease. Schedule DuoNeb QID. Cont IS. Wean O2 as able. On Vancomycin/Levaquin/cefepime day #3 for pneumonia. Blood cultures with 1/2 enterococcus species - change to vanco and merrem and await susceptibilities K and mag replaced by night staff. Repeat now and replace. Give another dose of lasix with platelets. CXR in am 12/05/17 HGB trending down slowly, but remains above 8- monitor. FOB +. Continue PPI/Carafate- pt declined endoscopy. Slow improvement in leukocytosis, thrombocytopenia- s/p platelet transfusion, continue Granix. Persistent tachycardia, ongoing dyspnea. She did get Lasix yesterday. Will add low dose metoprolol for HR control- BP should support it. Continue telemetry monitoring. Check ECHO in AM. Repeat CXR in AM. Metastatic lung cancer- may need to consider CT if CXR does not improve on current abx therapy. Continue Meropenem. Consult Pharmacy to help with Vanco dosing. BC on admission + for Enterococcus- continue Vanco and await c/s. Follow up BC- NGTD. Continue O2, Nebs, supportive care. SCDs- avoid blood thinners given slow GI blood losses. DNR status noted. 12/06/17 CTA chest done yesterday shows a 4.7 x 3.3 cm thick-walled cavitary mass in the superior segment of the left lower lobe with an air-fluid level which may be secondary to a pulmonary abscess or infected bulla; infiltrates vs. edema; also b/l pleural effusions and chronic lung changes. WBC 12.2. BC + Enterococcus; c/ s pending. Repeat BC NGTD. Continue vancomycin and Merrem. Continue nebs. Consult Dr. Holm. Diet advanced. Hgb stable, 9.3. Poor food intake per RN -- may need to get calorie count if appetite doesn't improve now that it's been advanced. Cont IV PPI. K 3.1, Mg 1.5, Phos 1.6 -- KDur 20 mEq TID (taper as needed); MagOx 800 mg daily ; K-Phos 1000 mg WMHS. Echo done, pending. Tachycardic with elevated BP; increase metoprolol tartrate to 25 mg BID. Consult PT/OT. 12/07/17 Ongoing electrolyte deficiencies - d/t poor tolerance of PO meds will replace K (3.0) & Mg (1.5) IV. Phos improved to 2.9 Echo done: EF 60-65%; mild MR, mild TR, mild-mod PH Remains tachycardic; metoprolol was increased yesterday. Weight is going back up , but clinically appears dry. Oral intake has been poor. She doesn't like the consistency of Mighty Shakes. May need to resume IVF. WBC 11.5, hgb 8.6. Continue Merrem and vanco for enterococcal bacteremia. Consider ID consult. Repeat BC NGTD. Discussed case with Dr Holm. Dr Holm discussed with patient and family about possible bronch-would like to hold on that for now. He recommends trial of steroids to see if will help-will start Solu-Medrol 125mg IV q 6 hours. Replace Mg and potassium IV secondary to tolerability with oral - will place oral potassium on hold. As BP elevated, will start low dose lisinopril 5mg nightly to help BP and preserve potassium. 12/08/17 Hypokalemia- Resume home PO potassium Continue on K-Phos and Mag ox for PO supplementation Continue Merrem and Vanco for enterococcal bacteremia. Recommendations 5-7 days of IV tx from negative blood cultures Hgb remains stable. Continue on PO Carafate 12/09/17 Hypokalemia, 2.3 -- replace IV Mag 1.5 -- increase MagOx to BID DC KPhos -- recheck in am along with BMP, Mg BC results have been updated: strep mitis/oralis, sensitive to vanco. Cont Merrem as well. Would prefer to diurese d/t weight gain and overall increase in O2 needs, but with low K will check CXR first. Pt opting for conservative treatment - not wanting bronch. Dr. Holm ordered aspergillus ag. Hgb decreased to 7.3; repeat in am. WBC elevated - suspect steroids. 12/10/17 Continued Hypokalemia, 2.8. Replace both IV and orally -- replace IV Magnesium improved to 2.1. BC results have been updated: strep mitis/oralis, sensitive to vanco. Cont Merrem as well. Appreciate consultation with Dr Holm Hgb remains low however is stable at decreased to 7.3 Continue to follow Leukocytosis- up to 18 today; likely steroid induced 12/11/2017 Hemoglobin is stable. White count is up today, likely secondary to steroids. No fevers. Hypokalemia has improved after IV and oral potassium. Basic metabolic today is mildly hemolyzed. Recheck basic metabolic profile this afternoon Recent wheezing today, weight is up 10 kg likely secondary to fluid overload. Start IV Lasix. Check chest x-ray and BNP today. Decrease IV steroids and monitor Monitor Accu-Cheks and give sliding scale insulin regarding hyperglycemia Check ionized calcium in the morning check PTH and vitamin D levels. Patient started on oral calcium and vitamin D 3 times a day. Discussed with Dr. Holm. Patient may benefit from bronchoscopy early this week if not improving. The patient states she is considering this procedure if she is not improving by then. She is currently on Merrem and vancomycin for pneumonia. One of 2 blood cultures on admission positive for strep mitis. Repeat blood cultures negative.
[2017-12-11] MEDS: FUROSEMIDE 40 MG/4 ML INJECTION IVP SCH (13:59)
[2017-12-11] MEDS: INSULIN ASPART 100unit/ml INJECTION SQ PRN ×2 (14:51→22:00)
[2017-12-11] MEDS: AMPICILLIN/SULBACTAM 3 G in NS 100 ML IV SCH (15:53)
[2017-12-12] MEDS: METHYLPREDNISOLONE SOD SUCC 125mg/2ml INJECTION IVP SCH ×2 (04:10→09:12)
[2017-12-12] MEDS: AMPICILLIN/SULBACTAM 3 G in NS 100 ML IV SCH ×2 (04:18→15:54)
[2017-12-12] MEDS: SUCRALFATE 1 GM TABLET PO SCH ×4 (06:29→21:54)
[2017-12-12] MEDS: INSULIN ASPART 100unit/ml INJECTION SQ PRN ×2 (06:51→14:45)
[2017-12-12] MEDS: ALBUTEROL/IPRATROPIUM 2.5mg-0.5mg/3ml NEB AEROSOL SCH ×4 (08:19→20:32)
[2017-12-12] MEDS: FOLIC ACID 1 MG TABLET PO SCH (08:56)
[2017-12-12] MEDS: CALCIUM 600 + VIT D 400 TABLET PO SCH ×3 (08:56→21:54)
[2017-12-12] MEDS: MAGNESIUM OXIDE 400 MG TABLET PO SCH ×2 (08:57→21:54)
[2017-12-12] MEDS: AMLODIPINE 5 MG TABLET PO SCH (08:57)
[2017-12-12] MEDS ORDERED: NS IV ONE (09:00)
[2017-12-12] MEDS ORDERED: CALCIUM CHLORIDE IV ONE (09:00)
[2017-12-12] MEDS: SALINE FLUSH 10ml SYRINGE IVF PRN ×2 (09:11→21:57)
[2017-12-12] MEDS ORDERED: ALTEPLASE (Cathflo*) 2mg INJECTION IV ONE (10:00)
--- NOTE | 2017-12-12 10:13 | Progress Note ---
- Date 12/12/17 Subjective: The patient is seen today in her room. She denies any pain. She denies shortness of breath. She does appear fatigued. He has had no fevers. She is urinating without difficulties. She states she still feels edematous in her arms and legs. The patient's nurse states she's not able to withdraw properly from the Port-A- Cath a. Patient states that she had this problem last week as well. Objective Vital signs: Temperature 97.0 F 12/12/17 08:00 Pulse Rate 97 12/12/17 08:00 Respiratory Rate 16 12/12/17 08:19 Blood Pressure 144/69 H 12/12/17 08:00 Pulse Oximetry 93 12/12/17 08:19 Rhythm: Sinus Tachycardia (Tele reviewed. ) Height/Weight/BMI: Height 1.63 m Weight 65 kg Body Mass Index 22.8 Comments: Weight today is down 1.2 kg. Overall she is still about 8 kg up from admission. Urine output was 1600 ML's yesterday. GEN-, oriented, no acute distress HEENT-decreased scleral injection of the right thigh today NECK-trace JVD CV-regular rate and rhythm CHEST-mild coarse breath sounds bilaterally ABD-soft, nontender with positive bowel sounds -no Hall EXT-+1-2 edema of the ankles, trace edema in the medial thighs NEURO-no focal deficits SKIN-warm and dry Results - Labs CBC & Chem 7: 12/12/17 04:18 12/12/17 04:18 Labs: Ionized calcium is 0.76. Phosphorus is 3.1. Calcium is 5.6. Albumin 2.8. Microbiology Results: Microbiology 12/05/17 10:37 Port/Picc Blood Culture - Final No Growth After 5 Days 12/05/17 10:38 Port/Picc Blood Culture - Final No Growth After 5 Days 12/02/17 15:39 Peripheral/Iv Start Gram Stain - Final 12/02/17 15:39 Peripheral/Iv Start Blood Culture - Final Streptococcus mitis/oralis 12/02/17 15:31 Peripheral/Iv Start Blood Culture - Final No Growth After 5 Days Assessment and Plan (1) Pneumonia Current visit: Yes Status: Acute Assessment and Plan: Assessment GI bleed with symptomatic marked anemia, hgb 4.7 on admission. History of ibuprofen/ASA use. Anemia-hemoglobin currently stable at 7.5 and she has received a total of 4 units of blood this hospitalization Thrombocytopenia on admission-resolved post 2 platelet packs Acute hypoxic respiratory failure-currently on 3 L. CTA showed concerns for possible pulmonary edema Probable pulmonary edema with fluid overload Tachycardia-resolved Severe pancytopenia and neutropenia -resolved Streptococcus mitis/oralis bacteremia on 1 of 2 blood cultures on 12/02/2017- repeat blood cultures negative Pneumonia LLL cavitary lesion-abscess versus necrotic mass Hypokalemia (POA)-resolved Hypomagnesemia (POA) -resolved Hypophosphatemia-resolved Hyperphosphatemia -resolved Hyperglycemia secondary to steroids [id number] secondary to recent transfusions Fluid overload -weight up much as 10 kg- currently weight up 8 kg Dizziness/Weakness Metastatic lung cancer, sees Dr. Rushing - NSCLCA with chemo. Currently on Carboplatin/Alimta for at least 4 months. 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 White count is up today, likely secondary to steroids. No fevers. Because of fluid overload, patient was given Lasix 40 mg IV yesterday with good urine output. Weight is down 1.2 kg today. She still overall about 8 kg up from admission and does have edema. CTA chest done earlier this week showed questionable pulmonary edema. Regarding acute kidney injury, creatinine today is 1.7. Baseline is 0.8. She did have an elevated Vanco trough 2 days ago. Vancomycin has been discontinued. Discussed with nephrology, will continue off of vancomycin. Avoid nephrotoxins. Okay to continue cautious diuresis since she is having pulmonary edema. Unasyn was started yesterday for questionable pulmonary abscess and one of 2 initial blood cultures positive for strep mitis. Discussed with infectious disease specialist. She stated another option would be Rocephin oral clindamycin for at least 2 weeks. The patient had previously received Levaquin for 2 days and then meropenem 12/04/2017 through 12/11/2017. She was on vancomycin from 12/02/2017 through 12/11/2017. We'll do a rapid taper of steroids. The patient is asymptomatic regarding hypocalcemia, continue oral calcium and vitamin D. PTH and vitamin D level still pending. DVT Prophylaxis: SCD's GI Prophylaxis: Protonix Resuscitation Status: Do Not Resuscitate - Physician Narrative Narrative: Date: 12/12/17 Time: 1010 Hospital Course Summary Disclaimer: The visit summary below is not to be considered part of the above Progress Note. Hospital Course: 12/02/17 Admit, inpatient status, under the hospitalist service. GI bleed/tachycardia/symptomatic anemia -2U PRBC, 1 platelet pack, s/p 2L NS in ED, consult Dr. Kraft, hold ibu/ASA, IV PPI RUL pneumonia, immunocompromised/neutropenic -Vancomycin, Levaquin, cefepime - Neutropenic precautions Hypokalemia & Hypomagnesemia -Replace IV -Telemetry Advanced Directives -Daughter & Son are DPOAs -Would like to be DNR in and out- of-hospital. 12/03/17 Hgb 6.1 following 2U PRBC -- transfuse x2 more unit. Plt improved to 22K. ANC 1360 s/p Granix yesterday. Dr. Kraft not recommending procedures at this time but agrees w/ empiric tx for PUD. Will add oral Carafate to IV Protonix. Repeat CXR d/t hypoxia and increased dyspnea. Schedule DuoNeb QID. Cont IS. Wean O2 as able. Continue Vancomycin/Levaquin/cefepime day #2 for pneumonia. K improved to 3.4 - will give add'l oral KDur. Mg up to 1.9. 12/04/17 Hgb improved to 9.2 today Plt back to 16K today s/p Granix 7/6 - monitor for need Dr. Kraft not recommending procedures at this time but agrees w/ empiric tx for PUD. Repeat CXR with increasing RUL airspace disease. Schedule DuoNeb QID. Cont IS. Wean O2 as able. On Vancomycin/Levaquin/cefepime day #3 for pneumonia. Blood cultures with 1/2 enterococcus species - change to vanco and merrem and await susceptibilities K and mag replaced by night staff. Repeat now and replace. Give another dose of lasix with platelets. CXR in am 12/05/17 HGB trending down slowly, but remains above 8- monitor. FOB +. Continue PPI/Carafate- pt declined endoscopy. Slow improvement in leukocytosis, thrombocytopenia- s/p platelet transfusion, continue Granix. Persistent tachycardia, ongoing dyspnea. She did get Lasix yesterday. Will add low dose metoprolol for HR control- BP should support it. Continue telemetry monitoring. Check ECHO in AM. Repeat CXR in AM. Metastatic lung cancer- may need to consider CT if CXR does not improve on current abx therapy. Continue Meropenem. Consult Pharmacy to help with Vanco dosing. BC on admission + for Enterococcus- continue Vanco and await c/s. Follow up BC- NGTD. Continue O2, Nebs, supportive care. SCDs- avoid blood thinners given slow GI blood losses. DNR status noted. 12/06/17 CTA chest done yesterday shows a 4.7 x 3.3 cm thick-walled cavitary mass in the superior segment of the left lower lobe with an air-fluid level which may be secondary to a pulmonary abscess or infected bulla; infiltrates vs. edema; also b/l pleural effusions and chronic lung changes. WBC 12.2. BC + Enterococcus; c/ s pending. Repeat BC NGTD. Continue vancomycin and Merrem. Continue nebs. Consult Dr. Holm. Diet advanced. Hgb stable, 9.3. Poor food intake per RN -- may need to get calorie count if appetite doesn't improve now that it's been advanced. Cont IV PPI. K 3.1, Mg 1.5, Phos 1.6 -- KDur 20 mEq TID (taper as needed); MagOx 800 mg daily ; K-Phos 1000 mg WMHS. Echo done, pending. Tachycardic with elevated BP; increase metoprolol tartrate to 25 mg BID. Consult PT/OT. 12/07/17 Ongoing electrolyte deficiencies - d/t poor tolerance of PO meds will replace K (3.0) & Mg (1.5) IV. Phos improved to 2.9 Echo done: EF 60-65%; mild MR, mild TR, mild-mod PH Remains tachycardic; metoprolol was increased yesterday. Weight is going back up , but clinically appears dry. Oral intake has been poor. She doesn't like the consistency of Mighty Shakes. May need to resume IVF. WBC 11.5, hgb 8.6. Continue Merrem and vanco for enterococcal bacteremia. Consider ID consult. Repeat BC NGTD. Discussed case with Dr Holm. Dr Holm discussed with patient and family about possible bronch-would like to hold on that for now. He recommends trial of steroids to see if will help-will start Solu-Medrol 125mg IV q 6 hours. Replace Mg and potassium IV secondary to tolerability with oral - will place oral potassium on hold. As BP elevated, will start low dose lisinopril 5mg nightly to help BP and preserve potassium. 12/08/17 Hypokalemia- Resume home PO potassium Continue on K-Phos and Mag ox for PO supplementation Continue Merrem and Vanco for enterococcal bacteremia. Recommendations 5-7 days of IV tx from negative blood cultures Hgb remains stable. Continue on PO Carafate 12/09/17 Hypokalemia, 2.3 -- replace IV Mag 1.5 -- increase MagOx to BID DC KPhos -- recheck in am along with BMP, Mg BC results have been updated: strep mitis/oralis, sensitive to vanco. Cont Merrem as well. Would prefer to diurese d/t weight gain and overall increase in O2 needs, but with low K will check CXR first. Pt opting for conservative treatment - not wanting bronch. Dr. Holm ordered aspergillus ag. Hgb decreased to 7.3; repeat in am. WBC elevated - suspect steroids. 12/10/17 Continued Hypokalemia, 2.8. Replace both IV and orally -- replace IV Magnesium improved to 2.1. BC results have been updated: strep mitis/oralis, sensitive to vanco. Cont Merrem as well. Appreciate consultation with Dr Holm Hgb remains low however is stable at decreased to 7.3 Continue to follow Leukocytosis- up to 18 today; likely steroid induced 12/11/2017 Hemoglobin is stable. White count is up today, likely secondary to steroids. No fevers. Hypokalemia has improved after IV and oral potassium. Basic metabolic today is mildly hemolyzed. Recheck basic metabolic profile this afternoon Recent wheezing today, weight is up 10 kg likely secondary to fluid overload. Start IV Lasix. Check chest x-ray and BNP today. Decrease IV steroids and monitor Monitor Accu-Cheks and give sliding scale insulin regarding hyperglycemia Check ionized calcium in the morning check PTH and vitamin D levels. Patient started on oral calcium and vitamin D 3 times a day. Discussed with Dr. Holm. Patient may benefit from bronchoscopy early this week if not improving. The patient states she is considering this procedure if she is not improving by then. She is currently on Merrem and vancomycin for pneumonia. One of 2 blood cultures on admission positive for strep mitis. Repeat blood cultures negative.
--- NOTE | 2017-12-12 10:21 | XRay Report ---
Indication: hypoxia PROCEDURE: XR chest 1V: Encounter: Initial Comparison: December 09, 2017 Findings: Bilateral airspace disease is stable in distribution and density. Small pleural effusions are grossly stable. No pneumothorax. Heart size and mediastinal contours are stable. Pulmonary vascularity is indistinct. Impression: Stable abnormal appearance of the chest. .
[2017-12-12] MEDS: PANTOPRAZOLE 40 MG INJECTION IVP SCH ×2 (12:14→21:54)
--- NOTE | 2017-12-12 18:09 | Pulmonology Progress Note ---
Subjective Principal diagnosis: hypoxia Interval history: concerned about edema, though it appears to be improving with diuretics still some dyspnea and congestion. Exam Vital signs: Temperature 96 F L 12/12/17 16:00 Pulse Rate 95 12/12/17 16:00 Respiratory Rate 20 12/12/17 16:00 Blood Pressure 140/72 H 12/12/17 16:00 Pulse Oximetry 94 12/12/17 16:00 Inpatient Medications: Generic Name Dose Route Start Last Admin Trade Name Aliza PRN Reason Stop Dose Admin Acetaminophen 650 mg 12/02/17 17:10 12/10/17 21:52 Tylenol PO 650 mg Q5H PRN Administration Discomfort Albuterol/Ipratropium 3 ml 12/02/17 15:16 Duoneb IPPB RTQID PRN Albuterol/Ipratropium 3 ml 12/03/17 15:00 12/12/17 15:09 Duoneb AEROSOL 3 ml RTQID MARINA Administration Amlodipine Besylate 5 mg 12/06/17 09:00 12/12/17 08:57 Norvasc PO 5 mg DAILY MARINA Administration Bisacodyl 10 mg 12/02/17 13:40 Dulcolax RECTALLY DAILY PRN Constipation Calcium/Vitamin D 1 tab 12/11/17 09:00 12/12/17 15:54 Caltrate + D PO 1 tab TID MARINA Administration Dextrose 20 ml 12/11/17 13:21 D50%W IVP PRN PRN Hypoglycemia Diphenhydramine HCl 25 mg 12/11/17 04:11 12/11/17 22:00 Benadryl PO 25 mg HS PRN Administration Itching Folic Acid 1 mg 12/03/17 09:00 12/12/17 08:56 Folate PO 1 mg DAILY MARINA Administration Furosemide 40 mg 12/11/17 13:30 12/11/17 13:59 Lasix 40 Mg/4 Ml IVP 40 mg DAILY MARINA Administration Glucose 37.5 gm 12/11/17 13:21 Glutose 15 PO PRN PRN Hypoglycemia Ampicillin Sodium/Sulbactam 100 mls @ 200 mls/hr 12/11/17 16:00 12/12/17 16: 24 Sodium 3 g/ Sodium Chloride IV Infused Q12H MARINA Infusion Insulin Aspart 1 - 5 unit 12/11/17 13:21 12/12/17 14:45 Novolog SQ 4 unit SS PRN Administration Hyperglycemia Protocol Lisinopril 5 mg 12/07/17 21:00 12/10/17 21:53 Prinivil PO 5 mg HS MARINA Administration Magnesium Hydroxide 30 ml 12/02/17 13:40 Mom PO DAILY PRN Constipation Magnesium Oxide 800 mg 12/09/17 21:00 12/12/17 08:57 Magox PO 800 mg BID MARINA Administration Metoprolol Tartrate 25 mg 12/06/17 17:30 12/12/17 18:01 Lopressor PO 25 mg BIDWM MARINA Administration Morphine Sulfate 4 mg 12/02/17 17:10 Morphine Sulfate Inj IVP Q3H PRN Pain Ondansetron HCl 4 mg 12/02/17 13:40 Zofran IVP Q6H PRN Nausea &/or vomiting Pantoprazole Sodium 40 mg 12/02/17 13:44 12/12/17 12:14 Protonix Iv IVP 40 mg BID MARINA Administration Potassium Chloride 20 meq 12/12/17 09:00 12/12/17 08:57 K-Dur 20 Meq Tablet PO 20 meq DAILY MARINA Administration Prednisone 20 mg 12/13/17 08:00 Deltasone 10 Mg PO 12/15/17 07:59 WB [facility] Senna/Docusate Sodium 1 tab 12/02/17 13:40 Senna Plus Tablet PO BID PRN Constipation Sodium Chloride 10 - 80 ml 12/02/17 11:30 12/12/17 09:11 Iv Flush IVF 70 ml PRN PRN Administration Flushing Sodium Chloride 500 ml 12/04/17 05:42 12/11/17 09:15 Normal Saline IV 500 ml PRN PRN Administration Sucralfate 1 gm 12/03/17 17:00 12/12/17 18:01 Carafate PO 1 gm ACHS MARINA Administration Discontinued Medications Generic Name Dose Route Start Last Admin Trade Name Freq PRN Reason Stop Dose Admin Alteplase, Recombinant 2 mg 12/06/17 12:05 12/06/17 12:54 Cathflo Activase IV 12/06/17 12:06 2 mg O ONE Administration Alteplase, Recombinant 2 mg 12/12/17 10:00 12/12/17 10:31 Cathflo Activase IV 12/12/17 10:01 2 mg O ONE Administration Amlodipine Besylate 2.5 mg 12/04/17 09:00 12/06/17 12:06 Norvasc PO 12/06/17 09:00 Not Given DAILY MARINA Clonidine HCl 0.1 mg 12/03/17 17:44 12/03/17 18:24 Catapres PO 12/03/17 17:45 0.1 mg ONE TIME ONE Administration Furosemide 20 mg 12/03/17 18:35 12/03/17 18:41 Lasix 20 Mg/2 Ml IVP 12/03/17 18:36 20 mg ONCE ONE Administration Furosemide 20 mg 12/04/17 12:36 12/04/17 12:54 Lasix 20 Mg/2 Ml IVP 12/04/17 12:37 20 mg ONCE ONE Administration Sodium Chloride 1,000 mls @ 999 mls/hr 12/02/17 11:30 12/02/17 12:59 Normal Saline IV Infused .Q1H1M MARINA Infusion Sodium Chloride 1,000 mls @ 999.9 mls/hr 12/02/17 12:20 12/02/17 13:17 Normal Saline IV 12/02/17 13:19 999.9 mls/hr .Q1H ONE Administration Levofloxacin/Dextrose 750 mg in 150 mls @ 100 mls/hr 12/02/17 12:45 12/02/17 14:48 Levaquin 750 Mg Premix IV Infused Q24H MARINA Infusion Levofloxacin/Dextrose 750 mg in 150 mls @ 100 mls/hr 12/04/17 12:00 12/04/17 14:46 Levaquin 750 Mg Premix IV Infused Q48H MARINA Infusion Magnesium Sulfate/Dextrose 1 gm in 100 mls @ 100 mls/hr 12/02/17 15:00 00:15 Mag Sulf 1gm Premix IV 12/02/17 16:59 Infused Q1H MARINA Infusion Lidocaine HCl 10 mg/ Potassium 100 mls @ 100 mls/hr 12/02/17 15:00 12/03/17 02:55 Chloride 10 meq/ Sodium IV 12/02/17 19:13 Infused Chloride .Q1H MARINA Infusion Cefepime HCl 1 gm/ Sodium 100 mls @ 200 mls/hr 12/02/17 15:15 Chloride IV Q6H MARINA Levofloxacin/Dextrose 750 mg in 150 mls @ 100 mls/hr 12/03/17 12:00 Levaquin 750 Mg Premix IV Q24H MARINA Vancomycin HCl 750 mg/ Sodium 500 mls @ 250 mls/hr 12/02/17 15:11 12/02/17 21 :18 Chloride IV 12/02/17 15:12 Not Given O ONE Cefepime HCl 1 gm/ Sodium 100 mls @ 200 mls/hr 12/02/17 15:45 12/04/17 11:48 Chloride IV Infused Q8H MARINA Infusion Vancomycin HCl 1,250 mg/ 250 mls @ 200 mls/hr 12/02/17 17:00 12/02/17 21:28 Sodium Chloride IV 12/02/17 17:01 Infused O ONE Infusion Vancomycin HCl 1,000 mg/ 250 mls @ 250 mls/hr 12/03/17 16:00 12/05/17 17:27 Sodium Chloride IV Infused Q24H MARINA Infusion Magnesium Sulfate/Dextrose 1 gm in 100 mls @ 100 mls/hr 12/04/17 06:15 10:25 Mag Sulf 1gm Premix IV 12/04/17 08:14 Infused Q1H MARINA Infusion Lidocaine HCl 10 mg/ Potassium 100 mls @ 100 mls/hr 12/04/17 06:15 12/04/17 10:31 Chloride 10 meq/ Sodium IV 12/04/17 10:28 Not Given Chloride .Q1H MARINA Lidocaine HCl 10 mg/ Potassium 100 mls @ 100 mls/hr 12/04/17 07:30 12/04/17 13:00 Chloride 10 meq/ Dextrose IV 12/04/17 10:29 Infused .Q1H MARINA Infusion Meropenem 500 mg/ Sodium 50 mls @ 100 mls/hr 12/04/17 16:00 12/11/17 09:44 Chloride IV Infused Q8H MARINA Infusion Vancomycin HCl 1,250 mg/ 250 mls @ 200 mls/hr 12/06/17 12:00 12/08/17 02:33 Sodium Chloride IV Infused Q18H MARINA Infusion Magnesium Sulfate/Dextrose 1 gm in 100 mls @ 100 mls/hr 12/07/17 09:08 12:44 Mag Sulf 1gm Premix IV 12/07/17 11:07 Infused Q1H MARINA Infusion Lidocaine HCl 10 mg/ Potassium 100 mls @ 100 mls/hr 12/07/17 10:00 12/07/17 17:47 Chloride 10 meq/ Sodium IV 12/07/17 14:13 100 mls/hr Chloride .Q1H MARINA Administration Vancomycin HCl 1,500 mg/ 500 mls @ 250 mls/hr 12/08/17 19:00 12/10/17 07:50 Sodium Chloride IV Not Given Q18H MARINA Lidocaine HCl 10 mg/ Potassium 100 mls @ 100 mls/hr 12/09/17 11:15 12/09/17 16:31 Chloride 10 meq/ Sodium IV 12/09/17 15:28 Infused Chloride .Q1H MARINA Infusion Magnesium Sulfate/Dextrose 1 gm in 100 mls @ 100 mls/hr 12/09/17 16:15 21:45 Mag Sulf 1gm Premix IV 12/09/17 18:14 Infused Q1H MARINA Infusion Potassium Chloride 10 meq in 100 mls @ 100 mls/hr 12/10/17 09:45 12/10/17 15: 28 Potassium Chloride Premix IV 12/10/17 13:44 Infused Q1H MARINA Infusion Vancomycin HCl 1,000 mg/ 250 mls @ 250 mls/hr 12/11/17 06:00 12/11/17 06:33 Sodium Chloride IV 250 mls/hr Q24H MARINA Administration Calcium Chloride 4.65 meq/ 103.4191 mls @ 50 mls/hr 12/12/17 09:00 12/12/17 12:26 Sodium Chloride IV 12/12/17 11:04 Infused O ONE Infusion Magnesium Oxide 800 mg 12/06/17 11:00 12/09/17 08:40 Magox PO 800 mg DAILY MARINA Administration Methylprednisolone Sodium Succinate 125 mg 12/07/17 17:15 12/11/17 09:14 Solu-Medrol IVP 125 mg Q6HR MARINA Administration Methylprednisolone Sodium Succinate 62.5 mg 12/11/17 15:00 12/12/17 09:12 Solu-Medrol IVP 62.5 mg Q6HR MARINA Administration Metoprolol Tartrate 12.5 mg 12/05/17 17:30 12/06/17 08:31 Lopressor PO 12.5 mg BIDWM MARINA Administration Potassium Chloride 20 meq 12/03/17 12:02 12/03/17 12:25 K-Dur 20 Meq Tablet PO 12/03/17 12:03 20 meq O ONE Administration Potassium Chloride 40 meq 12/04/17 15:15 12/04/17 16:45 K-Dur 20 Meq Tablet PO 12/04/17 17:16 40 meq Q2H MARINA Administration Potassium Chloride 20 meq 12/06/17 12:00 12/11/17 18:19 K-Dur 20 Meq Tablet PO 20 meq TIDWM MARINA Administration Potassium Chloride 40 meq 12/09/17 05:51 12/09/17 06:06 K-Dur 20 Meq Tablet PO 12/09/17 05:52 40 meq O ONE Administration Prochlorperazine Edisylate 10 mg 12/02/17 16:59 12/04/17 15:03 Compazine Iv IVP 10 mg Q6H PRN Administration Nausea &/or vomiting Sodium Chloride 500 ml 12/02/17 15:06 12/05/17 08:19 Normal Saline IV 500 ml PRN PRN Administration Sodium Phosphate 1,000 mg 12/06/17 12:00 12/09/17 12:23 K-Phos *Neutral* Tablet PO 1,000 mg WMHS MARINA Administration Spironolactone 50 mg 12/09/17 16:15 12/09/17 17:24 Aldactone 50 Mg PO 12/09/17 16:16 50 mg O ONE Administration Spironolactone 50 mg 12/10/17 13:00 12/10/17 13:10 Aldactone 50 Mg PO 12/10/17 13:01 50 mg ONE TIME ONE Administration Tbo-Filgrastim 480 mcg 12/02/17 19:13 12/02/17 22:10 Granix SQ 12/02/17 19:14 480 mcg O ONE Administration Vancomycin HCl 1 each 12/02/17 15:11 12/03/17 09:11 Pharmacy Consult - Vancomycin 12/02/17 15:12 1 each O ONE Administration Vancomycin HCl 1 each 12/05/17 11:13 Pharmacy Consult - Vancomycin 12/05/17 11:14 O ONE - Constitutional no acute distress - Routine HEENT Exam Head: Present: normocephalic Eye: Absent: conjunctival icterus - Routine Neck Exam Present: supple. Absent: JVD - Routine Respiratory Exam Present: crackles - Routine Cardiovascular Exam Present: RRR Results - Laboratory Findings Laboratory: Laboratory Results - last 48 hr 07/14/18 07/14/18 07/14/18 03:46 03:46 08:55 WBC 21.2 H RBC 2.38 L Hgb 7.3 L Hct 22.6 L MCV 95.0 MCH 30.7 MCHC 32.3 RDW Std Deviation 51.3 H Plt Count 96 L MPV 10.7 Immature Gran % (Auto) Not performed Neut % (Auto) Not performed Lymph % (Auto) Not performed [place] % (Auto) Not performed Eos % (Auto) Not performed Baso % (Auto) Not performed Neut # (Auto) Not performed Lymph # (Auto) Not performed [place] # (Auto) Not performed Eos # (Auto) Not performed Baso # (Auto) Not performed Abs Immat Gran (auto) Not performed Neutrophils % (Manual) 91.0 H Band Neutrophils % 5.0 Lymphocytes % (Manual) 1.0 L Monocytes % (Manual) 1.0 Metamyelocytes % 1.0 H Myelocytes % 1.0 H Neutrophils # (Manual) 19.3 H Band Neutrophils # 1.1 Lymphocytes # (Manual) 0.2 L Monocytes # (Manual) 0.2 Metamyelocytes # 0.2 Myelocytes # 0.2 Poikilocytosis 1+ Anisocytosis 2+ Helmet Cells 1+ RBC Morph Comment Abnormal Turbidity < 20 Sodium 140 Potassium 3.8 Chloride 105 Carbon Dioxide 24 Anion Gap 11 BUN 28.0 H Creatinine 1.5 H D GFR Calculation 33 BUN/Creatinine Ratio 19 Glucose 347 H Glucometer Calculated Osmolality 289 H Calcium 5.2 L* Ionized Calcium Basilio Phosphorus Magnesium 2.2 Total Bilirubin 0.30 Icterus Index < 2 AST 26 ALT 16 Alkaline Phosphatase 106 NT-Pro-B Natriuret Pep Total Protein 5.2 L Albumin 2.6 L Globulin 2.6 Albumin/Globulin Ratio 1.0 L PTH Intact 412.9 H Specimen Hemolysis 28 H Stool Occult Blood Stl Cyclospora species Stool Rotavirus A PCR Stool Adenovirus (PCR) Stool Astrovirus (PCR) Stool Campylobacter PCR Stl C.difficile Tox PCR Stool Cryptosporidium PCR Stl E.coli Shiga Toxins Stl Enterotoxigenic E PCR Stool EPEC (PCR) Stool EAEC (PCR) Stool Entamoeba (PCR) Stool Giardia Lamblia PCR Stool Salmonella PCR Stool Sapovirus (PCR) Stl P. shigelloides PCR Stl Shigella/EIEC PCR St Y.enterocolitica PCR Stool Vibrio (PCR) Stl Vibrio cholera PCR Stl Norovirus GI/GII PCR 12/11/17 12/11/17 12/11/17 08:55 14:22 14:23 WBC RBC Hgb Hct MCV MCH MCHC RDW Std Deviation Plt Count MPV Immature Gran % (Auto) Neut % (Auto) Lymph % (Auto) [place] % (Auto) Eos % (Auto) Baso % (Auto) Neut # (Auto) Lymph # (Auto) [place] # (Auto) Eos # (Auto) Baso # (Auto) Abs Immat Gran (auto) Neutrophils % (Manual) Band Neutrophils % Lymphocytes % (Manual) Monocytes % (Manual) Metamyelocytes % Myelocytes % Neutrophils # (Manual) Band Neutrophils # Lymphocytes # (Manual) Monocytes # (Manual) Metamyelocytes # Myelocytes # Poikilocytosis Anisocytosis Helmet Cells RBC Morph Comment Turbidity < 20 Sodium 142 Potassium 4.0 Chloride 104 Carbon Dioxide 27 Anion Gap 11 BUN 30.0 H Creatinine 1.6 H D GFR Calculation 31 BUN/Creatinine Ratio 19 Glucose 328 H Glucometer 372 Calculated Osmolality 292 H Calcium 5.5 L* Ionized Calcium Basilio Phosphorus Magnesium Total Bilirubin Icterus Index < 2 AST ALT Alkaline Phosphatase NT-Pro-B Natriuret Pep 4750 H Total Protein Albumin Globulin Albumin/Globulin Ratio PTH Intact Specimen Hemolysis < 15 Stool Occult Blood Stl Cyclospora species Stool Rotavirus A PCR Stool Adenovirus (PCR) Stool Astrovirus (PCR) Stool Campylobacter PCR Stl C.difficile Tox PCR Stool Cryptosporidium PCR Stl E.coli Shiga Toxins Stl Enterotoxigenic E PCR Stool EPEC (PCR) Stool EAEC (PCR) Stool Entamoeba (PCR) Stool Giardia Lamblia PCR Stool Salmonella PCR Stool Sapovirus (PCR) Stl P. shigelloides PCR Stl Shigella/EIEC PCR St Y.enterocolitica PCR Stool Vibrio (PCR) Stl Vibrio cholera PCR Stl Norovirus GI/GII PCR 12/11/17 12/12/17 12/12/17 20:39 01:15 01:15 WBC RBC Hgb Hct MCV MCH MCHC RDW Std Deviation Plt Count MPV Immature Gran % (Auto) Neut % (Auto) Lymph % (Auto) [place] % (Auto) Eos % (Auto) Baso % (Auto) Neut # (Auto) Lymph # (Auto) [place] # (Auto) Eos # (Auto) Baso # (Auto) Abs Immat Gran (auto) Neutrophils % (Manual) Band Neutrophils % Lymphocytes % (Manual) Monocytes % (Manual) Metamyelocytes % Myelocytes % Neutrophils # (Manual) Band Neutrophils # Lymphocytes # (Manual) Monocytes # (Manual) Metamyelocytes # Myelocytes # Poikilocytosis Anisocytosis Helmet Cells RBC Morph Comment Turbidity Sodium Potassium Chloride Carbon Dioxide Anion Gap BUN Creatinine GFR Calculation BUN/Creatinine Ratio Glucose Glucometer 307 Calculated Osmolality Calcium Ionized Calcium Basilio Phosphorus Magnesium Total Bilirubin Icterus Index AST ALT Alkaline Phosphatase NT-Pro-B Natriuret Pep Total Protein Albumin Globulin Albumin/Globulin Ratio PTH Intact Specimen Hemolysis Stool Occult Blood Positive A Stl Cyclospora species Negative Stool Rotavirus A PCR Negative Stool Adenovirus (PCR) Negative Stool Astrovirus (PCR) Negative Stool Campylobacter PCR Negative Stl C.difficile Tox PCR Negative Stool Cryptosporidium PCR Negative Stl E.coli Shiga Toxins Negative Stl Enterotoxigenic E PCR Negative Stool EPEC (PCR) Negative Stool EAEC (PCR) Negative Stool Entamoeba (PCR) Negative Stool Giardia Lamblia PCR Negative Stool Salmonella PCR Negative Stool Sapovirus (PCR) Negative Stl P. shigelloides PCR Negative Stl Shigella/EIEC PCR Negative St Y.enterocolitica PCR Negative Stool Vibrio (PCR) Negative Stl Vibrio cholera PCR Negative Stl Norovirus GI/GII PCR Negative 12/12/17 12/12/17 12/12/17 04:18 04:18 06:18 WBC 21.8 H RBC 2.48 L Hgb 7.5 L Hct 24.2 L MCV 97.6 MCH 30.2 MCHC 31.0 RDW Std Deviation 52.4 H Plt Count 111 L MPV 10.7 Immature Gran % (Auto) Neut % (Auto) Lymph % (Auto) [place] % (Auto) Eos % (Auto) Baso % (Auto) Neut # (Auto) Lymph # (Auto) [place] # (Auto) Eos # (Auto) Baso # (Auto) Abs Immat Gran (auto) Neutrophils % (Manual) 86.0 H Band Neutrophils % 5.0 Lymphocytes % (Manual) 5.0 L Monocytes % (Manual) 2.0 Metamyelocytes % 2.0 H Myelocytes % Neutrophils # (Manual) 18.7 H Band Neutrophils # 1.1 Lymphocytes # (Manual) 1.1 Monocytes # (Manual) 0.4 Metamyelocytes # 0.4 Myelocytes # Poikilocytosis 1+ Anisocytosis 3+ Helmet Cells RBC Morph Comment Abnormal Turbidity < 20 Sodium 143 Potassium 4.2 Chloride 105 Carbon Dioxide 29 Anion Gap 9 BUN 31.0 H Creatinine 1.7 H D GFR Calculation 29 BUN/Creatinine Ratio 18 Glucose 214 H Glucometer 236 Calculated Osmolality 288 H Calcium 5.6 L* Ionized Calcium Basilio 0.76 L Phosphorus 3.1 Magnesium Total Bilirubin Icterus Index < 2 AST ALT Alkaline Phosphatase NT-Pro-B Natriuret Pep Total Protein Albumin 2.8 L Globulin Albumin/Globulin Ratio PTH Intact Specimen Hemolysis < 15 Stool Occult Blood Stl Cyclospora species Stool Rotavirus A PCR Stool Adenovirus (PCR) Stool Astrovirus (PCR) Stool Campylobacter PCR Stl C.difficile Tox PCR Stool Cryptosporidium PCR Stl E.coli Shiga Toxins Stl Enterotoxigenic E PCR Stool EPEC (PCR) Stool EAEC (PCR) Stool Entamoeba (PCR) Stool Giardia Lamblia PCR Stool Salmonella PCR Stool Sapovirus (PCR) Stl P. shigelloides PCR Stl Shigella/EIEC PCR St Y.enterocolitica PCR Stool Vibrio (PCR) Stl Vibrio cholera PCR Stl Norovirus GI/GII PCR 12/12/17 12/12/17 10:55 14:33 WBC RBC Hgb Hct MCV MCH MCHC RDW Std Deviation Plt Count MPV Immature Gran % (Auto) Neut % (Auto) Lymph % (Auto) [place] % (Auto) Eos % (Auto) Baso % (Auto) Neut # (Auto) Lymph # (Auto) [place] # (Auto) Eos # (Auto) Baso # (Auto) Abs Immat Gran (auto) Neutrophils % (Manual) Band Neutrophils % Lymphocytes % (Manual) Monocytes % (Manual) Metamyelocytes % Myelocytes % Neutrophils # (Manual) Band Neutrophils # Lymphocytes # (Manual) Monocytes # (Manual) Metamyelocytes # Myelocytes # Poikilocytosis Anisocytosis Helmet Cells RBC Morph Comment Turbidity Sodium Potassium Chloride Carbon Dioxide Anion Gap BUN Creatinine GFR Calculation BUN/Creatinine Ratio Glucose Glucometer 306 333 Calculated Osmolality Calcium Ionized Calcium Basilio Phosphorus Magnesium Total Bilirubin Icterus Index AST ALT Alkaline Phosphatase NT-Pro-B Natriuret Pep Total Protein Albumin Globulin Albumin/Globulin Ratio PTH Intact Specimen Hemolysis Stool Occult Blood Stl Cyclospora species Stool Rotavirus A PCR Stool Adenovirus (PCR) Stool Astrovirus (PCR) Stool Campylobacter PCR Stl C.difficile Tox PCR Stool Cryptosporidium PCR Stl E.coli Shiga Toxins Stl Enterotoxigenic E PCR Stool EPEC (PCR) Stool EAEC (PCR) Stool Entamoeba (PCR) Stool Giardia Lamblia PCR Stool Salmonella PCR Stool Sapovirus (PCR) Stl P. shigelloides PCR Stl Shigella/EIEC PCR St Y.enterocolitica PCR Stool Vibrio (PCR) Stl Vibrio cholera PCR Stl Norovirus GI/GII PCR - Diagnostic Findings Chest x-ray: report reviewed, image reviewed Assessment and Plan (1) Acute respiratory failure with hypoxia Status: Acute Assessment and plan: continue O2 (currently 3.5 lpm O2 by de) to keep sat >90%. Current Visit: Yes (2) Non-small cell lung cancer Status: Chronic Assessment and plan: treated over the last 24 months for NSCLCA with chemo. Dr Rushing is her oncologist. Currently on Carboplatin/Alimta for at least 4 months according to the family. The patient had a CT chest 11/23 at [facility] showing developing left effusion and bilateral ground glass infiltrates. Presented with Neutropenic fever, pneumonia symptoms. CT chest shows LLL pleural based density and severe bilateral lung consolidations. I do have concern about opportunistic infections given her immune compromised condition. 1 of her blood cultures did show Strep mitis. I doubt the new CT findings represent malignancy and is more likely a pleural based abscess. I discussed possible bronchoscopy with the patient and family, and the patient elected to defer that. The bilateral ground glass opacities may be pulmonary edema. We are currently managing with antibiotics. I would recommend repeating the CT at some point so we can plan on intervention for the pleural based process. Current Visit: No (3) Pneumonia Status: Acute Assessment and plan: continue empiric therapy with Unasyn for Strep mitis. associated with pleural based abscess, will likely require drainage Current Visit: Yes - Time Spent With Patient Total time spent is greater than 50% in coordination of care (as documented) at patient's floor/unit and/or counseling patient: less than 15 minutes
[2017-12-13] MEDS: AMPICILLIN/SULBACTAM 3 G in NS 100 ML IV SCH ×2 (03:52→15:26)
[2017-12-13] MEDS: DiphenhydrAMINE 25 MG CAPSULE PO PRN ×2 (04:49→22:06)
[2017-12-13] MEDS: SUCRALFATE 1 GM TABLET PO SCH ×4 (06:34→21:25)
[2017-12-13] MEDS: INSULIN ASPART 100unit/ml INJECTION SQ PRN ×4 (06:41→22:04)
[2017-12-13] MEDS ORDERED: PredniSONE 10 MG TABLET PO SCH (08:00)
[2017-12-13] MEDS: FOLIC ACID 1 MG TABLET PO SCH (08:04)
[2017-12-13] MEDS: MAGNESIUM OXIDE 400 MG TABLET PO SCH ×2 (08:04→21:25)
[2017-12-13] MEDS: AMLODIPINE 5 MG TABLET PO SCH (08:04)
[2017-12-13] MEDS: CALCIUM 600 + VIT D 400 TABLET PO SCH ×3 (08:05→21:25)
[2017-12-13] MEDS: FUROSEMIDE 40 MG/4 ML INJECTION IVP SCH (08:06)
[2017-12-13] MEDS: PANTOPRAZOLE 40 MG INJECTION IVP SCH ×2 (08:06→21:24)
[2017-12-13] MEDS: SALINE FLUSH 10ml SYRINGE IVF PRN ×2 (08:06→21:25)
--- NOTE | 2017-12-13 08:38 | Ultrasound Report ---
Indication: osiris US renal BI: Comparison: CT abdomen abdomen 10/27/2016 Technique: Real-time and color flow imaging provided Findings: Right kidney is measuring approximately 12.0 x 4.2 x 4.4 cm. The pelvis on the right side is just slightly more prominent than the left although no marked obstructive uropathy seen. No shadowing stone is seen on the right side. On the old CT study a 3 to 4 mm stone was suggested on the right in the lower pole. Left kidney is measuring 11.6 x 3.8 x 5.5 cm showing no additional significant findings. Neither kidney showed significant masses or cysts. Impression: 1. Right kidney failed to show definitive calcified stone in the lower pole as was noted on the old CT study. It showed just slightly more prominent renal pelvis on the left but no significant obstructive uropathy identified in either kidney. No other significant findings appreciated. .
[2017-12-13] MEDS: ALBUTEROL/IPRATROPIUM 2.5mg-0.5mg/3ml NEB AEROSOL SCH ×4 (08:40→20:31)
--- NOTE | 2017-12-13 15:59 | Progress Note ---
- Date 12/13/17 Subjective: Myra is seen today in follow up. She is resting in bed and her daughter is at her side. She is currently on room air however is noted to be slightly tachypneic at 32/him. She states that she feels "full of fluid" and notes arms and leg are edematous. She denies having chest pain, nausea or other concerns. Objective Vital signs: Temperature 96.0 F L 12/13/17 15:40 Pulse Rate 84 12/13/17 15:40 Respiratory Rate 20 12/13/17 15:40 Blood Pressure 139/65 12/13/17 15:40 Pulse Oximetry 94 12/13/17 15:40 Height/Weight/BMI: Height 1.63 m Weight 65.3 kg Body Mass Index 22.8 - Constitutional Present: well nourished, well developed - Routine HEENT Exam Eye: Present: EOMI ENT: Present: mucous membranes moist, dentition normal - Routine Respiratory Exam Present: diminished air movement. Absent: wheezes - Routine Cardiovascular Exam Present: RRR, S1, S2. Absent: murmur - Routine Abdominal Exam Present: soft, normoactive bowel sounds, non distended. Absent: tenderness - Routine Extremities Exam Present: edema (Bilateral upper ext- 1-2+ edema) - Routine Skin Exam Present: intact, dry, warm - Routine Neurological Exam Present: alert, oriented X3, CN II-XII intact - Routine Lymphatic Exam Lymphatic: Absent: adenopathy - Routine Psychiatric Exam Present: cooperative Results - Labs CBC & Chem 7: 12/13/17 03:50 12/13/17 03:50 Microbiology Results: Microbiology 12/05/17 10:37 Port/Picc Blood Culture - Final No Growth After 5 Days 12/05/17 10:38 Port/Picc Blood Culture - Final No Growth After 5 Days 12/02/17 15:39 Peripheral/Iv Start Gram Stain - Final 12/02/17 15:39 Peripheral/Iv Start Blood Culture - Final Streptococcus mitis/oralis 12/02/17 15:31 Peripheral/Iv Start Blood Culture - Final No Growth After 5 Days Assessment and Plan (1) Pneumonia Current visit: Yes Status: Acute Assessment and Plan: Assessment GI bleed with symptomatic marked anemia, hgb 4.7 on admission. History of ibuprofen/ASA use. Anemia-hemoglobin currently stable at 7.5 and she has received a total of 4 units of blood this hospitalization Thrombocytopenia on admission-resolved post 2 platelet packs Acute hypoxic respiratory failure-currently on 3 L. CTA showed concerns for possible pulmonary edema Probable pulmonary edema with fluid overload Tachycardia-resolved Severe pancytopenia and neutropenia -resolved Streptococcus mitis/oralis bacteremia on 1 of 2 blood cultures on 12/02/2017- repeat blood cultures negative Pneumonia LLL cavitary lesion-abscess versus necrotic mass Hypokalemia (POA)-resolved Hypomagnesemia (POA) -resolved Hypophosphatemia-resolved Hyperphosphatemia -resolved Hyperglycemia secondary to steroids Bhtzfjvymadi-hlvyobczsutw-odsmkb secondary to recent transfusions Fluid overload -weight up much as 10 kg- currently weight up 8 kg Dizziness/Weakness Metastatic lung cancer, sees Dr. Rushing - NSCLCA with chemo. Currently on Carboplatin/Alimta for at least 4 months. 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 Weight is up 8Kg since admission. Encourage Ty hose to BLE and elevation of upper extremities Recommended decreasing salt intake as she is eating a lot of peanuts at the bedside Continue to follow renal function- Avoid nephrotoxins. Vanco stopped and changed to Unasyn IV for antimicrobial coverage Encouraged nutritional supplementation Monitor hypocalcemia. Currently on PO calcium and Vit D. Labs pending. Hgb remains stable at 7.3 and PLT count increased at 117 12/13/2017-5:40 PM-I examined the patient independently. I reviewed this chart, the patient history, and the FAMILY LAW [employer]ALEGAL's/PA's documented findings as above. We discussed and formulated the assessment and plan as above with the additions below.-Dr. Alvarez Patient was seen this evening in her room. We have been able to titrate her down to room air today. She was previously on 3 L. She feels like she is breathing better. She has some occasional cough but is not able to produce the phlegm and feels it is stuck in her throat. She continues to have edema in her arms and legs, but it is slowly improving. Her appetite is a little better. On exam she is alert and in no acute distress. Chest reveals some mild coarse breath sounds in the bases. Cardiovascular reveals a regular rate and rhythm. Abdomen is soft and nontender. Lower extremities Extremities reveal edema up to the medial thighs, and upper extremities she has +1 edema. She has TY hose on. Lab today reveals hemoglobin of 2.6. Glucose is high at 358. Creatinine is stable at 1.7. Calcium is up mildly at 5.9. Albumin is 2.6. Impression and plan Acute hypoxic respiratory failure has improved. Likely in part secondary to diuresis. Pulmonary edema is symptomatically improved. Check chest x-ray tomorrow. The patient may benefit from albumin followed by Lasix. Lab low sodium diet and 2 L fluid restriction. Continue Unasyn for strep mitis bacteremia and pleural-based lung abscess. White count is elevated likely secondary to steroids. She is afebrile. Anemia is stable at 7.3. Platelets are stable at 117. We will increase sliding scale insulin regarding hyperglycemia. Discontinue steroids. Start diabetic diet. - Physician Narrative Narrative: Date: 12/13/17 Time: 1555 Hospital Course Summary Disclaimer: The visit summary below is not to be considered part of the above Progress Note. Hospital Course: 12/02/17 Admit, inpatient status, under the hospitalist service. GI bleed/tachycardia/symptomatic anemia -2U PRBC, 1 platelet pack, s/p 2L NS in ED, consult Dr. Kraft, hold ibu/ASA, IV PPI RUL pneumonia, immunocompromised/neutropenic -Vancomycin, Levaquin, cefepime - Neutropenic precautions Hypokalemia & Hypomagnesemia -Replace IV -Telemetry Advanced Directives -Daughter & Son are DPOAs -Would like to be DNR in and out- of-hospital. 12/03/17 Hgb 6.1 following 2U PRBC -- transfuse x2 more unit. Plt improved to 22K. ANC 1360 s/p Granix yesterday. Dr. Kraft not recommending procedures at this time but agrees w/ empiric tx for PUD. Will add oral Carafate to IV Protonix. Repeat CXR d/t hypoxia and increased dyspnea. Schedule DuoNeb QID. Cont IS. Wean O2 as able. Continue Vancomycin/Levaquin/cefepime day #2 for pneumonia. K improved to 3.4 - will give add'l oral KDur. Mg up to 1.9. 12/04/17 Hgb improved to 9.2 today Plt back to 16K today s/p Granix 7/6 - monitor for need Dr. Kraft not recommending procedures at this time but agrees w/ empiric tx for PUD. Repeat CXR with increasing RUL airspace disease. Schedule DuoNeb QID. Cont IS. Wean O2 as able. On Vancomycin/Levaquin/cefepime day #3 for pneumonia. Blood cultures with 1/2 enterococcus species - change to vanco and merrem and await susceptibilities K and mag replaced by night staff. Repeat now and replace. Give another dose of lasix with platelets. CXR in am 12/05/17 HGB trending down slowly, but remains above 8- monitor. FOB +. Continue PPI/Carafate- pt declined endoscopy. Slow improvement in leukocytosis, thrombocytopenia- s/p platelet transfusion, continue Granix. Persistent tachycardia, ongoing dyspnea. She did get Lasix yesterday. Will add low dose metoprolol for HR control- BP should support it. Continue telemetry monitoring. Check ECHO in AM. Repeat CXR in AM. Metastatic lung cancer- may need to consider CT if CXR does not improve on current abx therapy. Continue Meropenem. Consult Pharmacy to help with Vanco dosing. BC on admission + for Enterococcus- continue Vanco and await c/s. Follow up BC- NGTD. Continue O2, Nebs, supportive care. SCDs- avoid blood thinners given slow GI blood losses. DNR status noted. 12/06/17 CTA chest done yesterday shows a 4.7 x 3.3 cm thick-walled cavitary mass in the superior segment of the left lower lobe with an air-fluid level which may be secondary to a pulmonary abscess or infected bulla; infiltrates vs. edema; also b/l pleural effusions and chronic lung changes. WBC 12.2. BC + Enterococcus; c/ s pending. Repeat BC NGTD. Continue vancomycin and Merrem. Continue nebs. Consult Dr. Holm. Diet advanced. Hgb stable, 9.3. Poor food intake per RN -- may need to get calorie count if appetite doesn't improve now that it's been advanced. Cont IV PPI. K 3.1, Mg 1.5, Phos 1.6 -- KDur 20 mEq TID (taper as needed); MagOx 800 mg daily ; K-Phos 1000 mg WMHS. Echo done, pending. Tachycardic with elevated BP; increase metoprolol tartrate to 25 mg BID. Consult PT/OT. 12/07/17 Ongoing electrolyte deficiencies - d/t poor tolerance of PO meds will replace K (3.0) & Mg (1.5) IV. Phos improved to 2.9 Echo done: EF 60-65%; mild MR, mild TR, mild-mod PH Remains tachycardic; metoprolol was increased yesterday. Weight is going back up , but clinically appears dry. Oral intake has been poor. She doesn't like the consistency of Mighty Shakes. May need to resume IVF. WBC 11.5, hgb 8.6. Continue Merrem and vanco for enterococcal bacteremia. Consider ID consult. Repeat BC NGTD. Discussed case with Dr Holm. Dr Holm discussed with patient and family about possible bronch-would like to hold on that for now. He recommends trial of steroids to see if will help-will start Solu-Medrol 125mg IV q 6 hours. Replace Mg and potassium IV secondary to tolerability with oral - will place oral potassium on hold. As BP elevated, will start low dose lisinopril 5mg nightly to help BP and preserve potassium. 12/08/17 Hypokalemia- Resume home PO potassium Continue on K-Phos and Mag ox for PO supplementation Continue Merrem and Vanco for enterococcal bacteremia. Recommendations 5-7 days of IV tx from negative blood cultures Hgb remains stable. Continue on PO Carafate 12/09/17 Hypokalemia, 2.3 -- replace IV Mag 1.5 -- increase MagOx to BID DC KPhos -- recheck in am along with BMP, Mg BC results have been updated: strep mitis/oralis, sensitive to vanco. Cont Merrem as well. Would prefer to diurese d/t weight gain and overall increase in O2 needs, but with low K will check CXR first. Pt opting for conservative treatment - not wanting bronch. Dr. Holm ordered aspergillus ag. Hgb decreased to 7.3; repeat in am. WBC elevated - suspect steroids. 12/10/17 Continued Hypokalemia, 2.8. Replace both IV and orally -- replace IV Magnesium improved to 2.1. BC results have been updated: strep mitis/oralis, sensitive to vanco. Cont Merrem as well. Appreciate consultation with Dr Holm Hgb remains low however is stable at decreased to 7.3 Continue to follow Leukocytosis- up to 18 today; likely steroid induced 12/11/2017 Hemoglobin is stable. White count is up today, likely secondary to steroids. No fevers. Hypokalemia has improved after IV and oral potassium. Basic metabolic today is mildly hemolyzed. Recheck basic metabolic profile this afternoon Recent wheezing today, weight is up 10 kg likely secondary to fluid overload. Start IV Lasix. Check chest x-ray and BNP today. Decrease IV steroids and monitor Monitor Accu-Cheks and give sliding scale insulin regarding hyperglycemia Check ionized calcium in the morning check PTH and vitamin D levels. Patient started on oral calcium and vitamin D 3 times a day. Discussed with Dr. Holm. Patient may benefit from bronchoscopy early this week if not improving. The patient states she is considering this procedure if she is not improving by then. She is currently on Merrem and vancomycin for pneumonia. One of 2 blood cultures on admission positive for strep mitis. Repeat blood cultures negative. 12/13/17 Continue to work on gentle diuresing of Lasix 40 mg daily. Weight is up 8Kg since admission. Encourage Ty hose to BLE and elevation of upper extremities Recommended decreasing salt intake as she is eating a lot of peanuts at the bedside Continue to follow renal function- Avoid nephrotoxins. Vanco stopped and changed to Unasyn IV for antimicrobial coverage Encouraged nutritional supplementation Monitor hypocalcemia. Currently on PO calcium and Vit D. Labs pending. Hgb remains stable at 7.3 and PLT count increased at 117 Addendum entered and electronically signed by Renetta Abdi APRN 12/13/17 16 :20: Patient reports loose stools. May be secondary to Mag Ox. Will add scheduled probiotic.
[2017-12-13] MEDS: LACTOBACILLUS (15B cfu) CAPSULE PO SCH (16:54)
[2017-12-13] MEDS: GUAIFENESIN 400MG TABLET PO SCH (21:25)
[2017-12-14] MEDS: AMPICILLIN/SULBACTAM 3 G in NS 100 ML IV SCH ×2 (03:50→16:43)
[2017-12-14] MEDS: SUCRALFATE 1 GM TABLET PO SCH ×4 (06:01→21:23)
[2017-12-14] MEDS: INSULIN ASPART 100unit/ml INJECTION SQ PRN ×3 (06:01→14:14)
[2017-12-14] MEDS: ALBUTEROL/IPRATROPIUM 2.5mg-0.5mg/3ml NEB AEROSOL SCH ×4 (07:47→18:35)
[2017-12-14] MEDS: SALINE FLUSH 10ml SYRINGE IVF PRN ×5 (07:59→18:49)
[2017-12-14] MEDS: CALCIUM 600 + VIT D 400 TABLET PO SCH ×3 (08:01→21:23)
[2017-12-14] MEDS: PANTOPRAZOLE 40 MG INJECTION IVP SCH ×2 (08:01→21:25)
[2017-12-14] MEDS: GUAIFENESIN 400MG TABLET PO SCH ×3 (08:01→21:23)
[2017-12-14] MEDS: LACTOBACILLUS (15B cfu) CAPSULE PO SCH ×3 (08:01→16:44)
[2017-12-14] MEDS: MAGNESIUM OXIDE 400 MG TABLET PO SCH ×2 (08:01→21:25)
[2017-12-14] MEDS: FOLIC ACID 1 MG TABLET PO SCH (08:01)
[2017-12-14] MEDS: AMLODIPINE 5 MG TABLET PO SCH (08:02)
--- NOTE | 2017-12-14 09:07 | XRay Report ---
INDICATION: hypoxia PROCEDURE: CHEST 2-VIEWS UPRIGHT (PA & LAT) Encounter: Initial COMPARISON: December 11, 2017 FINDINGS: Slightly improved bilateral upper lobe airspace opacities. Decreasing pleural fluid. No pneumothorax or worsening infiltrate. Heart size and mediastinal contours are stable. Impression: Improving upper lobe pneumonia. .
--- NOTE | 2017-12-14 12:05 | Progress Note ---
- Date 12/14/17 Subjective: The patient was seen this morning in her room. She states she feels fatigued and "heavy" today. She states her limbs feel swollen. She denies any pain. She denies shortness of breath. She denies lightheadedness. She sitting up in a chair and her blood pressure is normal at 137/70 with heart rate of 80 and O2 sat of 95% on room air. She has had no fevers, chills or sweats. She is urinating without difficulty. She is having loose stools. She states she slept well last night after receiving Benadryl. Objective Vital signs: Temperature 96.8 F 12/14/17 07:00 Pulse Rate 101 H 12/14/17 08:00 Respiratory Rate 20 12/14/17 11:36 Blood Pressure 144/71 H 12/14/17 08:00 Pulse Oximetry 95 12/14/17 11:36 Rhythm: Sinus Tachycardia (Tele reviewed. ) Height/Weight/BMI: Height 1.63 m Weight 64.9 kg Body Mass Index 22.8 Comments: Afebrile, O2 sat 95% on room air, blood pressure 137/70 sitting, heart rate 80 I&O was -1885 yesterday. Weight is down 0.4 kg. GEN-alert, oriented, no acute distress HEENT-oropharynx is moist NECK-supple CV-regular rate and rhythm CHEST-clear to auscultation bilaterally ABD-soft, nontender with positive bowel sounds -no Hall EXT-1+ edema in the calves, +1 edema in the thighs, +1 edema in the arms NEURO-no focal deficits SKIN-warm and dry Results - Labs CBC & Chem 7: 12/14/17 03:47 12/14/17 03:47 Labs: White count continues to increase and is 27.7 today at from 21 yesterday Goals are stable at 93%, bands are 3%-the patient was receiving steroids until today Protocol calcitonin is normal. C-reactive protein is 21 Microbiology Results: Microbiology 12/13/17 18:26 Sputum, Expectorated Sputum Culture - Preliminary Early growth 12/05/17 10:37 Port/Picc Blood Culture - Final No Growth After 5 Days 12/05/17 10:38 Port/Picc Blood Culture - Final No Growth After 5 Days 12/02/17 15:39 Peripheral/Iv Start Gram Stain - Final 12/02/17 15:39 Peripheral/Iv Start Blood Culture - Final Streptococcus mitis/oralis 12/02/17 15:31 Peripheral/Iv Start Blood Culture - Final No Growth After 5 Days - Impressions Chest x-ray today on my read and per radiology shows improving bilateral upper lobe pneumonia and decreasing pleural fluid Assessment and Plan (1) Pneumonia Current visit: Yes Status: Acute Assessment and Plan: Assessment GI bleed with symptomatic marked anemia, hgb 4.7 on admission. History of ibuprofen/ASA use. Anemia-hemoglobin currently stable at 7.5 and she has received a total of 4 units of blood this hospitalization Thrombocytopenia on admission-resolved post 2 platelet packs Acute hypoxic respiratory failure-resolved Probable pulmonary edema with fluid overload versus bilateral pneumonia Streptococcus mitis/oralis bacteremia on 1 of 2 blood cultures on 12/02/2017- repeat blood cultures negative LLL cavitary lesion-abscess versus necrotic mass Severe pancytopenia and neutropenia -resolved Hypokalemia (POA)-resolved Hypomagnesemia (POA) -resolved Hypophosphatemia-resolved Hyperphosphatemia -resolved Hyperglycemia secondary to steroids Duwdazzcyqju-[id number]-direcw secondary to recent transfusions Fluid overload -weight up much as 10 kg- currently weight up 8 kg Dizziness/Weakness Metastatic lung cancer, sees Dr. Rushing - NSCLCA with chemo. Currently on Carboplatin/Alimta for at least 4 months. 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 Steroids were tapered down and her last dose was yesterday. She has not had any fever or significant bandemia. Chest x-ray shows improvement in probable pulmonary edema. She continues on Unasyn for strep oralis bacteremia and left lower lobe cavitary lung lesion. ProCalcitonin is normal. C-reactive protein is slightly elevated at 20-no previous for comparison. Regarding fatigue, vital signs are stable. Will check magnesium and phosphorus. Fatigue may be in part secondary to discontinuation of steroids. We'll monitor. Renal function is improving. Regarding fluid overload and low albumin, will give IV albumin followed by Lasix 2 today. The patient was started on a low salt diet and fluid restriction yesterday. Hemoglobin is stable and platelets are improving. Pulmonary edema has resolved and she is on room air. Continue nutritional supplements for malnutrition and hypoalbuminemia Sliding scale insulin as needed for hyperglycemia secondary to steroids. Blood sugar should improve off of steroids. DVT Prophylaxis: SCD's GI Prophylaxis: Protonix Resuscitation Status: Do Not Resuscitate - Physician Narrative Narrative: Date: 12/14/17 Time: 1202 Hospital Course Summary Disclaimer: The visit summary below is not to be considered part of the above Progress Note. Hospital Course: 12/02/17 Admit, inpatient status, under the hospitalist service. GI bleed/tachycardia/symptomatic anemia -2U PRBC, 1 platelet pack, s/p 2L NS in ED, consult Dr. Kraft, hold ibu/ASA, IV PPI RUL pneumonia, immunocompromised/neutropenic -Vancomycin, Levaquin, cefepime - Neutropenic precautions Hypokalemia & Hypomagnesemia -Replace IV -Telemetry Advanced Directives -Daughter & Son are DPOAs -Would like to be DNR in and out- of-hospital. 12/03/17 Hgb 6.1 following 2U PRBC -- transfuse x2 more unit. Plt improved to 22K. ANC 1360 s/p Granix yesterday. Dr. Kraft not recommending procedures at this time but agrees w/ empiric tx for PUD. Will add oral Carafate to IV Protonix. Repeat CXR d/t hypoxia and increased dyspnea. Schedule DuoNeb QID. Cont IS. Wean O2 as able. Continue Vancomycin/Levaquin/cefepime day #2 for pneumonia. K improved to 3.4 - will give add'l oral KDur. Mg up to 1.9. 12/04/17 Hgb improved to 9.2 today Plt back to 16K today s/p Granix 7/6 - monitor for need Dr. Kraft not recommending procedures at this time but agrees w/ empiric tx for PUD. Repeat CXR with increasing RUL airspace disease. Schedule DuoNeb QID. Cont IS. Wean O2 as able. On Vancomycin/Levaquin/cefepime day #3 for pneumonia. Blood cultures with 1/2 enterococcus species - change to vanco and merrem and await susceptibilities K and mag replaced by night staff. Repeat now and replace. Give another dose of lasix with platelets. CXR in am 12/05/17 HGB trending down slowly, but remains above 8- monitor. FOB +. Continue PPI/Carafate- pt declined endoscopy. Slow improvement in leukocytosis, thrombocytopenia- s/p platelet transfusion, continue Granix. Persistent tachycardia, ongoing dyspnea. She did get Lasix yesterday. Will add low dose metoprolol for HR control- BP should support it. Continue telemetry monitoring. Check ECHO in AM. Repeat CXR in AM. Metastatic lung cancer- may need to consider CT if CXR does not improve on current abx therapy. Continue Meropenem. Consult Pharmacy to help with Vanco dosing. BC on admission + for Enterococcus- continue Vanco and await c/s. Follow up BC- NGTD. Continue O2, Nebs, supportive care. SCDs- avoid blood thinners given slow GI blood losses. DNR status noted. 12/06/17 CTA chest done yesterday shows a 4.7 x 3.3 cm thick-walled cavitary mass in the superior segment of the left lower lobe with an air-fluid level which may be secondary to a pulmonary abscess or infected bulla; infiltrates vs. edema; also b/l pleural effusions and chronic lung changes. WBC 12.2. BC + Enterococcus; c/ s pending. Repeat BC NGTD. Continue vancomycin and Merrem. Continue nebs. Consult Dr. Holm. Diet advanced. Hgb stable, 9.3. Poor food intake per RN -- may need to get calorie count if appetite doesn't improve now that it's been advanced. Cont IV PPI. K 3.1, Mg 1.5, Phos 1.6 -- KDur 20 mEq TID (taper as needed); MagOx 800 mg daily ; K-Phos 1000 mg WMHS. Echo done, pending. Tachycardic with elevated BP; increase metoprolol tartrate to 25 mg BID. Consult PT/OT. 12/07/17 Ongoing electrolyte deficiencies - d/t poor tolerance of PO meds will replace K (3.0) & Mg (1.5) IV. Phos improved to 2.9 Echo done: EF 60-65%; mild MR, mild TR, mild-mod PH Remains tachycardic; metoprolol was increased yesterday. Weight is going back up , but clinically appears dry. Oral intake has been poor. She doesn't like the consistency of Might[place] Shakes. May need to resume IVF. WBC 11.5, hgb 8.6. Continue Merrem and vanco for enterococcal bacteremia. Consider ID consult. Repeat BC NGTD. Discussed case with Dr Holm. Dr Holm discussed with patient and family about possible bronch-would like to hold on that for now. He recommends trial of steroids to see if will help-will start Solu-Medrol 125mg IV q 6 hours. Replace Mg and potassium IV secondary to tolerability with oral - will place oral potassium on hold. As BP elevated, will start low dose lisinopril 5mg nightly to help BP and preserve potassium. 12/08/17 Hypokalemia- Resume home PO potassium Continue on K-Phos and Mag ox for PO supplementation Continue Merrem and Vanco for enterococcal bacteremia. Recommendations 5-7 days of IV tx from negative blood cultures Hgb remains stable. Continue on PO Carafate 12/09/17 Hypokalemia, 2.3 -- replace IV Mag 1.5 -- increase MagOx to BID DC KPhos -- recheck in am along with BMP, Mg BC results have been updated: strep mitis/oralis, sensitive to vanco. Cont Merrem as well. Would prefer to diurese d/t weight gain and overall increase in O2 needs, but with low K will check CXR first. Pt opting for conservative treatment - not wanting bronch. Dr. Holm ordered aspergillus ag. Hgb decreased to 7.3; repeat in am. WBC elevated - suspect steroids. 12/10/17 Continued Hypokalemia, 2.8. Replace both IV and orally -- replace IV Magnesium improved to 2.1. BC results have been updated: strep mitis/oralis, sensitive to vanco. Cont Merrem as well. Appreciate consultation with Dr Holm Hgb remains low however is stable at decreased to 7.3 Continue to follow Leukocytosis- up to 18 today; likely steroid induced 12/11/2017 Hemoglobin is stable. White count is up today, likely secondary to steroids. No fevers. Hypokalemia has improved after IV and oral potassium. Basic metabolic today is mildly hemolyzed. Recheck basic metabolic profile this afternoon Recent wheezing today, weight is up 10 kg likely secondary to fluid overload. Start IV Lasix. Check chest x-ray and BNP today. Decrease IV steroids and monitor Monitor Accu-Cheks and give sliding scale insulin regarding hyperglycemia Check ionized calcium in the morning check PTH and vitamin D levels. Patient started on oral calcium and vitamin D 3 times a day. Discussed with Dr. Holm. Patient may benefit from bronchoscopy early this week if not improving. The patient states she is considering this procedure if she is not improving by then. She is currently on Merrem and vancomycin for pneumonia. One of 2 blood cultures on admission positive for strep mitis. Repeat blood cultures negative. 12/13/17 Continue to work on gentle diuresing of Lasix 40 mg daily. Weight is up 8Kg since admission. Encourage Moe hose to BLE and elevation of upper extremities Recommended decreasing salt intake as she is eating a lot of peanuts at the bedside Continue to follow renal function- Avoid nephrotoxins. Vanco stopped and changed to Unasyn IV for antimicrobial coverage Encouraged nutritional supplementation Monitor hypocalcemia. Currently on PO calcium and Vit D. Labs pending. Hgb remains stable at 7.3 and PLT count increased at 117
[2017-12-14] MEDS: ALBUMIN HUMAN 12.5gm (25%) 50ml IV SCH ×2 (12:20→17:41)
[2017-12-14] MEDS: FUROSEMIDE 40 MG/4 ML INJECTION IVP SCH ×3 (12:57→18:49)
[2017-12-14] MEDS: NS FLUSH BAG 500ml IV PRN (16:48)
--- NOTE | 2017-12-14 16:50 | Pulmonology Progress Note ---
Subjective Principal diagnosis: hypoxia Interval history: somewhat better. now on room air. minimal cough and no sputum. no chest pain. no fever Exam Vital signs: Temperature 96.5 F L 12/14/17 16:00 Pulse Rate 94 12/14/17 16:00 Respiratory Rate 14 12/14/17 16:00 Blood Pressure 151/78 H 12/14/17 16:00 Pulse Oximetry 93 12/14/17 16:00 Inpatient Medications: Generic Name Dose Route Start Last Admin Trade Name Freq PRN Reason Stop Dose Admin Acetaminophen 650 mg 12/02/17 17:10 12/10/17 21:52 Tylenol PO 650 mg Q5H PRN Administration Discomfort Albumin Human 12.5 g 12/14/17 12:00 12/14/17 12:20 Albumin Human 12.5gm IV 12/14/17 18:01 12.5 g Q6H MARINA Administration Albuterol/Ipratropium 3 ml 12/02/17 15:16 Duoneb IPPB RTQID PRN Albuterol/Ipratropium 3 ml 12/03/17 15:00 12/14/17 15:34 Duoneb AEROSOL 3 ml RTQID MARINA Administration Amlodipine Besylate 5 mg 12/06/17 09:00 12/14/17 08:02 Norvasc PO 5 mg DAILY MARINA Administration Bisacodyl 10 mg 12/02/17 13:40 Dulcolax RECTALLY DAILY PRN Constipation Calcium/Vitamin D 1 tab 12/11/17 09:00 12/14/17 14:14 Caltrate + D PO 1 tab TID MARINA Administration Dextrose 20 ml 12/11/17 13:21 D50%W IVP PRN PRN Hypoglycemia Diphenhydramine HCl 25 mg 12/11/17 04:11 12/13/17 22:06 Benadryl PO 25 mg HS PRN Administration Itching Folic Acid 1 mg 12/03/17 09:00 12/14/17 08:01 Folate PO 1 mg DAILY MARINA Administration Glucose 37.5 gm 12/11/17 13:21 Glutose 15 PO PRN PRN Hypoglycemia Guaifenesin 400 mg 12/13/17 21:00 12/14/17 14:14 Mucinex PO 400 mg TID MARINA Administration Ampicillin Sodium/Sulbactam 100 mls @ 200 mls/hr 12/11/17 16:00 12/14/17 16: 43 Sodium 3 g/ Sodium Chloride IV 200 mls/hr Q12H MARINA Administration Insulin Aspart 2 - 8 unit 12/13/17 07:45 12/14/17 14:14 Novolog SQ 2 unit SS PRN Administration Hyperglycemia Protocol Lactobacillus Acidophilus 2 cap 12/13/17 17:30 12/14/17 16:44 Culturelle PO 2 cap TIDWM MARINA Administration Lisinopril 5 mg 12/07/17 21:00 12/10/17 21:53 Prinivil PO 5 mg HS MARINA Administration Magnesium Hydroxide 30 ml 12/02/17 13:40 Mom PO DAILY PRN Constipation Magnesium Oxide 800 mg 12/09/17 21:00 12/14/17 08:01 Magox PO 800 mg BID MARINA Administration Metoprolol Tartrate 25 mg 12/06/17 17:30 12/14/17 08:02 Lopressor PO 25 mg BIDWM MARINA Administration Morphine Sulfate 4 mg 12/02/17 17:10 Morphine Sulfate Inj IVP Q3H PRN Pain Ondansetron HCl 4 mg 12/02/17 13:40 Zofran IVP Q6H PRN Nausea &/or vomiting Pantoprazole Sodium 40 mg 12/02/17 13:44 12/14/17 08:01 Protonix Iv IVP 40 mg BID MARINA Administration Potassium Chloride 20 meq 12/12/17 09:00 12/14/17 08:01 K-Dur 20 Meq Tablet PO 20 meq DAILY MARINA Administration Senna/Docusate Sodium 1 tab 12/02/17 13:40 Senna Plus Tablet PO BID PRN Constipation Sodium Chloride 10 - 80 ml 12/02/17 11:30 12/14/17 12:57 Iv Flush IVF 20 ml PRN PRN Administration Flushing Sodium Chloride 500 ml 12/04/17 05:42 12/11/17 09:15 Normal Saline IV 500 ml PRN PRN Administration Sucralfate 1 gm 12/03/17 17:00 12/14/17 16:44 Carafate PO 1 gm ACHS MARINA Administration Discontinued Medications Generic Name Dose Route Start Last Admin Trade Name Freq PRN Reason Stop Dose Admin Alteplase, Recombinant 2 mg 12/06/17 12:05 12/06/17 12:54 Cathflo Activase IV 12/06/17 12:06 2 mg O ONE Administration Alteplase, Recombinant 2 mg 12/12/17 10:00 12/12/17 10:31 Cathflo Activase IV 12/12/17 10:01 2 mg O ONE Administration Amlodipine Besylate 2.5 mg 12/04/17 09:00 12/06/17 12:06 Norvasc PO 12/06/17 09:00 Not Given DAILY MARINA Clonidine HCl 0.1 mg 12/03/17 17:44 12/03/17 18:24 Catapres PO 12/03/17 17:45 0.1 mg ONE TIME ONE Administration Furosemide 20 mg 12/03/17 18:35 12/03/17 18:41 Lasix 20 Mg/2 Ml IVP 12/03/17 18:36 20 mg ONCE ONE Administration Furosemide 20 mg 12/04/17 12:36 12/04/17 12:54 Lasix 20 Mg/2 Ml IVP 12/04/17 12:37 20 mg ONCE ONE Administration Furosemide 40 mg 12/11/17 13:30 12/13/17 08:06 Lasix 40 Mg/4 Ml IVP 40 mg DAILY MARINA Administration Furosemide 40 mg 12/14/17 12:00 12/14/17 12:57 Lasix 40 Mg/4 Ml IVP 12/14/17 15:01 40 mg Q6HR MARINA Administration Sodium Chloride 1,000 mls @ 999 mls/hr 12/02/17 11:30 12/02/17 12:59 Normal Saline IV Infused .Q1H1M MARINA Infusion Sodium Chloride 1,000 mls @ 999.9 mls/hr 12/02/17 12:20 12/02/17 13:17 Normal Saline IV 12/02/17 13:19 999.9 mls/hr .Q1H ONE Administration Levofloxacin/Dextrose 750 mg in 150 mls @ 100 mls/hr 12/02/17 12:45 12/02/17 14:48 Levaquin 750 Mg Premix IV Infused Q24H MARINA Infusion Levofloxacin/Dextrose 750 mg in 150 mls @ 100 mls/hr 12/04/17 12:00 12/04/17 14:46 Levaquin 750 Mg Premix IV Infused Q48H MARINA Infusion Magnesium Sulfate/Dextrose 1 gm in 100 mls @ 100 mls/hr 12/02/17 15:00 00:15 Mag Sulf 1gm Premix IV 12/02/17 16:59 Infused Q1H MARINA Infusion Lidocaine HCl 10 mg/ Potassium 100 mls @ 100 mls/hr 12/02/17 15:00 12/03/17 02:55 Chloride 10 meq/ Sodium IV 12/02/17 19:13 Infused Chloride .Q1H MARINA Infusion Cefepime HCl 1 gm/ Sodium 100 mls @ 200 mls/hr 12/02/17 15:15 Chloride IV Q6H MARINA Levofloxacin/Dextrose 750 mg in 150 mls @ 100 mls/hr 12/03/17 12:00 Levaquin 750 Mg Premix IV Q24H MARINA Vancomycin HCl 750 mg/ Sodium 500 mls @ 250 mls/hr 12/02/17 15:11 12/02/17 21 :18 Chloride IV 12/02/17 15:12 Not Given O ONE Cefepime HCl 1 gm/ Sodium 100 mls @ 200 mls/hr 12/02/17 15:45 12/04/17 11:48 Chloride IV Infused Q8H MARINA Infusion Vancomycin HCl 1,250 mg/ 250 mls @ 200 mls/hr 12/02/17 17:00 12/02/17 21:28 Sodium Chloride IV 12/02/17 17:01 Infused O ONE Infusion Vancomycin HCl 1,000 mg/ 250 mls @ 250 mls/hr 12/03/17 16:00 12/05/17 17:27 Sodium Chloride IV Infused Q24H MARINA Infusion Magnesium Sulfate/Dextrose 1 gm in 100 mls @ 100 mls/hr 12/04/17 06:15 10:25 Mag Sulf 1gm Premix IV 12/04/17 08:14 Infused Q1H MARINA Infusion Lidocaine HCl 10 mg/ Potassium 100 mls @ 100 mls/hr 12/04/17 06:15 12/04/17 10:31 Chloride 10 meq/ Sodium IV 12/04/17 10:28 Not Given Chloride .Q1H MARINA Lidocaine HCl 10 mg/ Potassium 100 mls @ 100 mls/hr 12/04/17 07:30 12/04/17 13:00 Chloride 10 meq/ Dextrose IV 12/04/17 10:29 Infused .Q1H MARINA Infusion Meropenem 500 mg/ Sodium 50 mls @ 100 mls/hr 12/04/17 16:00 12/11/17 09:44 Chloride IV Infused Q8H MARINA Infusion Vancomycin HCl 1,250 mg/ 250 mls @ 200 mls/hr 12/06/17 12:00 12/08/17 02:33 Sodium Chloride IV Infused Q18H MARINA Infusion Magnesium Sulfate/Dextrose 1 gm in 100 mls @ 100 mls/hr 12/07/17 09:08 12:44 Mag Sulf 1gm Premix IV 12/07/17 11:07 Infused Q1H MARINA Infusion Lidocaine HCl 10 mg/ Potassium 100 mls @ 100 mls/hr 12/07/17 10:00 12/07/17 17:47 Chloride 10 meq/ Sodium IV 12/07/17 14:13 100 mls/hr Chloride .Q1H MARINA Administration Vancomycin HCl 1,500 mg/ 500 mls @ 250 mls/hr 12/08/17 19:00 12/10/17 07:50 Sodium Chloride IV Not Given Q18H MARINA Lidocaine HCl 10 mg/ Potassium 100 mls @ 100 mls/hr 12/09/17 11:15 12/09/17 16:31 Chloride 10 meq/ Sodium IV 12/09/17 15:28 Infused Chloride .Q1H MARINA Infusion Magnesium Sulfate/Dextrose 1 gm in 100 mls @ 100 mls/hr 12/09/17 16:15 21:45 Mag Sulf 1gm Premix IV 12/09/17 18:14 Infused Q1H MARINA Infusion Potassium Chloride 10 meq in 100 mls @ 100 mls/hr 12/10/17 09:45 12/10/17 15: 28 Potassium Chloride Premix IV 12/10/17 13:44 Infused Q1H MARINA Infusion Vancomycin HCl 1,000 mg/ 250 mls @ 250 mls/hr 12/11/17 06:00 12/11/17 06:33 Sodium Chloride IV 250 mls/hr Q24H MARINA Administration Calcium Chloride 4.65 meq/ 103.4191 mls @ 50 mls/hr 12/12/17 09:00 12/12/17 12:26 Sodium Chloride IV 12/12/17 11:04 Infused O ONE Infusion Insulin Aspart 1 - 5 unit 12/11/17 13:21 12/13/17 06:41 Novolog SQ 3 unit SS PRN Administration Hyperglycemia Protocol Magnesium Oxide 800 mg 12/06/17 11:00 12/09/17 08:40 Magox PO 800 mg DAILY MARINA Administration Methylprednisolone Sodium Succinate 125 mg 12/07/17 17:15 12/11/17 09:14 Solu-Medrol IVP 125 mg Q6HR MARINA Administration Methylprednisolone Sodium Succinate 62.5 mg 12/11/17 15:00 12/12/17 09:12 Solu-Medrol IVP 62.5 mg Q6HR MARINA Administration Metoprolol Tartrate 12.5 mg 12/05/17 17:30 12/06/17 08:31 Lopressor PO 12.5 mg BIDWM MARINA Administration Potassium Chloride 20 meq 12/03/17 12:02 12/03/17 12:25 K-Dur 20 Meq Tablet PO 12/03/17 12:03 20 meq O ONE Administration Potassium Chloride 40 meq 12/04/17 15:15 12/04/17 16:45 K-Dur 20 Meq Tablet PO 12/04/17 17:16 40 meq Q2H MARINA Administration Potassium Chloride 20 meq 12/06/17 12:00 12/11/17 18:19 K-Dur 20 Meq Tablet PO 20 meq TIDWM MARINA Administration Potassium Chloride 40 meq 12/09/17 05:51 12/09/17 06:06 K-Dur 20 Meq Tablet PO 12/09/17 05:52 40 meq O ONE Administration Prednisone 20 mg 12/13/17 08:00 12/13/17 08:04 Deltasone 10 Mg PO 12/15/17 07:59 20 mg WB MARINA Administration Prochlorperazine Edisylate 10 mg 12/02/17 16:59 12/04/17 15:03 Compazine Iv IVP 10 mg Q6H PRN Administration Nausea &/or vomiting Sodium Chloride 500 ml 12/02/17 15:06 12/05/17 08:19 Normal Saline IV 500 ml PRN PRN Administration Sodium Phosphate 1,000 mg 12/06/17 12:00 12/09/17 12:23 K-Phos *Neutral* Tablet PO 1,000 mg WMHS MARINA Administration Spironolactone 50 mg 12/09/17 16:15 12/09/17 17:24 Aldactone 50 Mg PO 12/09/17 16:16 50 mg O ONE Administration Spironolactone 50 mg 12/10/17 13:00 12/10/17 13:10 Aldactone 50 Mg PO 12/10/17 13:01 50 mg ONE TIME ONE Administration Tbo-Filgrastim 480 mcg 12/02/17 19:13 12/02/17 22:10 Granix SQ 12/02/17 19:14 480 mcg O ONE Administration Vancomycin HCl 1 each 12/02/17 15:11 12/03/17 09:11 Pharmacy Consult - Vancomycin 12/02/17 15:12 1 each O ONE Administration Vancomycin HCl 1 each 12/05/17 11:13 Pharmacy Consult - Vancomycin 12/05/17 11:14 O ONE - Constitutional no acute distress - Routine HEENT Exam Head: Present: normocephalic, atraumatic - Routine Neck Exam Present: supple - Routine Respiratory Exam Present: decreased breath sounds. Absent: accessory muscle use - Routine Cardiovascular Exam Present: RRR Results - Laboratory Findings Laboratory: Laboratory Results - last 48 hr 12/11/17 12/12/17 12/13/17 08:55 20:04 03:50 WBC 21.6 H RBC 2.39 L Hgb 7.3 L Hct 23.9 L MCV 100.0 MCH 30.5 MCHC 30.5 L RDW Std Deviation 52.9 H Plt Count 117 L MPV 11.4 Immature Gran % (Auto) Neut % (Auto) Lymph % (Auto) [place] % (Auto) Eos % (Auto) Baso % (Auto) Neut # (Auto) Lymph # (Auto) [place] # (Auto) Eos # (Auto) Baso # (Auto) Abs Immat Gran (auto) Neutrophils % (Manual) 93.0 H Band Neutrophils % 1.0 Lymphocytes % (Manual) 6.0 L Monocytes % (Manual) Neutrophils # (Manual) 20.1 H Band Neutrophils # 0.2 Lymphocytes # (Manual) 1.3 Monocytes # (Manual) Polychromasia 1+ Poikilocytosis 1+ Anisocytosis 2+ Ovalocytes 1+ RBC Morph Comment Abnormal Turbidity Sodium Potassium Chloride Carbon Dioxide Anion Gap BUN Creatinine GFR Calculation BUN/Creatinine Ratio Glucose Glucometer 322 Calculated Osmolality Calcium Phosphorus Magnesium Icterus Index C-Reactive Protein Albumin 25-OH Vitamin D Total 28.7 Procalcitonin Specimen Hemolysis 12/13/17 12/13/17 12/13/17 03:50 06:33 10:15 WBC RBC Hgb Hct MCV MCH MCHC RDW Std Deviation Plt Count MPV Immature Gran % (Auto) Neut % (Auto) Lymph % (Auto) [place] % (Auto) Eos % (Auto) Baso % (Auto) Neut # (Auto) Lymph # (Auto) [place] # (Auto) Eos # (Auto) Baso # (Auto) Abs Immat Gran (auto) Neutrophils % (Manual) Band Neutrophils % Lymphocytes % (Manual) Monocytes % (Manual) Neutrophils # (Manual) Band Neutrophils # Lymphocytes # (Manual) Monocytes # (Manual) Polychromasia Poikilocytosis Anisocytosis Ovalocytes RBC Morph Comment Turbidity < 20 Sodium 143 Potassium 4.2 Chloride 105 Carbon Dioxide 29 Anion Gap 9 BUN 32.0 H Creatinine 1.7 H GFR Calculation 29 BUN/Creatinine Ratio 19 Glucose 264 H Glucometer 280 248 Calculated Osmolality 291 H Calcium 5.9 L* Phosphorus 3.1 Magnesium Icterus Index < 2 C-Reactive Protein Albumin 2.6 L 25-OH Vitamin D Total Procalcitonin Specimen Hemolysis < 15 12/13/17 12/13/17 12/14/17 14:06 20:31 03:37 WBC RBC Hgb Hct MCV MCH MCHC RDW Std Deviation Plt Count MPV Immature Gran % (Auto) Neut % (Auto) Lymph % (Auto) [place] % (Auto) Eos % (Auto) Baso % (Auto) Neut # (Auto) Lymph # (Auto) [place] # (Auto) Eos # (Auto) Baso # (Auto) Abs Immat Gran (auto) Neutrophils % (Manual) Band Neutrophils % Lymphocytes % (Manual) Monocytes % (Manual) Neutrophils # (Manual) Band Neutrophils # Lymphocytes # (Manual) Monocytes # (Manual) Polychromasia Poikilocytosis Anisocytosis Ovalocytes RBC Morph Comment Turbidity Sodium Potassium Chloride Carbon Dioxide Anion Gap BUN Creatinine GFR Calculation BUN/Creatinine Ratio Glucose Glucometer 358 225 Calculated Osmolality Calcium Phosphorus Magnesium Icterus Index C-Reactive Protein Albumin 25-OH Vitamin D Total Procalcitonin 0.14 Specimen Hemolysis 12/14/17 12/14/17 12/14/17 03:37 03:47 03:47 WBC 27.7 H* RBC 2.58 L Hgb 7.9 L Hct 26.0 L MCV 100.8 H MCH 30.6 MCHC 30.4 L RDW Std Deviation 52.5 H Plt Count 144 MPV 11.1 Immature Gran % (Auto) [employer] Neut % (Auto) [employer] Lymph % (Auto) [employer] [place] % (Auto) [employer] Eos % (Auto) [employer] Baso % (Auto) [employer] Neut # (Auto) [employer] Lymph # (Auto) [employer] [place] # (Auto) [employer] Eos # (Auto) [employer] Baso # (Auto) [employer] Abs Immat Gran (auto) [employer] Neutrophils % (Manual) 93.0 H Band Neutrophils % 3.0 Lymphocytes % (Manual) 2.0 L Monocytes % (Manual) 2.0 Neutrophils # (Manual) 25.8 H Band Neutrophils # 0.8 Lymphocytes # (Manual) 0.6 L Monocytes # (Manual) 0.6 Polychromasia Poikilocytosis 1+ Anisocytosis 2+ Ovalocytes RBC Morph Comment Abnormal Turbidity < 20 Sodium 143 Potassium 3.8 Chloride 103 Carbon Dioxide 30 Anion Gap 10 BUN 29.0 H Creatinine 1.5 H D GFR Calculation 33 BUN/Creatinine Ratio 19 Glucose 169 H Glucometer Calculated Osmolality 285 H Calcium 5.8 L* Phosphorus Magnesium Icterus Index < 2 C-Reactive Protein 21.0 H Albumin 25-OH Vitamin D Total Procalcitonin Specimen Hemolysis < 15 12/14/17 12/14/17 12/14/17 03:47 05:50 10:18 WBC RBC Hgb Hct MCV MCH MCHC RDW Std Deviation Plt Count MPV Immature Gran % (Auto) Neut % (Auto) Lymph % (Auto) [place] % (Auto) Eos % (Auto) Baso % (Auto) Neut # (Auto) Lymph # (Auto) [place] # (Auto) Eos # (Auto) Baso # (Auto) Abs Immat Gran (auto) Neutrophils % (Manual) Band Neutrophils % Lymphocytes % (Manual) Monocytes % (Manual) Neutrophils # (Manual) Band Neutrophils # Lymphocytes # (Manual) Monocytes # (Manual) Polychromasia Poikilocytosis Anisocytosis Ovalocytes RBC Morph Comment Turbidity Sodium Potassium Chloride Carbon Dioxide Anion Gap BUN Creatinine GFR Calculation BUN/Creatinine Ratio Glucose Glucometer 197 168 Calculated Osmolality Calcium Phosphorus 2.6 Magnesium 1.9 Icterus Index C-Reactive Protein Albumin 25-OH Vitamin D Total Procalcitonin Specimen Hemolysis 12/14/17 14:12 WBC RBC Hgb Hct MCV MCH MCHC RDW Std Deviation Plt Count MPV Immature Gran % (Auto) Neut % (Auto) Lymph % (Auto) [place] % (Auto) Eos % (Auto) Baso % (Auto) Neut # (Auto) Lymph # (Auto) [place] # (Auto) Eos # (Auto) Baso # (Auto) Abs Immat Gran (auto) Neutrophils % (Manual) Band Neutrophils % Lymphocytes % (Manual) Monocytes % (Manual) Neutrophils # (Manual) Band Neutrophils # Lymphocytes # (Manual) Monocytes # (Manual) Polychromasia Poikilocytosis Anisocytosis Ovalocytes RBC Morph Comment Turbidity Sodium Potassium Chloride Carbon Dioxide Anion Gap BUN Creatinine GFR Calculation BUN/Creatinine Ratio Glucose Glucometer 178 Calculated Osmolality Calcium Phosphorus Magnesium Icterus Index C-Reactive Protein Albumin 25-OH Vitamin D Total Procalcitonin Specimen Hemolysis Assessment and Plan (1) Acute respiratory failure with hypoxia Status: Acute Assessment and plan: improved, now on room air Current Visit: Yes (2) Non-small cell lung cancer Status: Chronic Assessment and plan: treated over the last 24 months for NSCLCA with chemo. Dr Rushing is her oncologist. Currently on Carboplatin/Alimta for at least 4 months according to the family. She has had severe pancytopenia. The patient had a CT chest 11/23 at [facility] showing developing left effusion and bilateral ground glass infiltrates. Presented with Neutropenic fever, pneumonia symptoms. CT chest shows LLL pleural based density and severe bilateral lung consolidations. I do have concern about opportunistic infections given her immune compromised condition. 1 of her blood cultures did show Strep mitis. I doubt the new CT findings represent malignancy and is more likely a pleural based abscess, possibly loculated fluid or abscess. We are currently managing with antibiotics. I would recommend repeating the CT so we can plan on intervention for the pleural based process. Current Visit: No (3) Pneumonia Status: Acute Assessment and plan: continue empiric therapy with Unasyn for Strep mitis. associated with pleural based abscess, will likely require drainage Current Visit: Yes - Time Spent With Patient Total time spent is greater than 50% in coordination of care (as documented) at patient's floor/unit and/or counseling patient: less than 15 minutes
[2017-12-15] MEDS: AMPICILLIN/SULBACTAM 3 G in NS 100 ML IV SCH ×2 (04:48→15:01)
[2017-12-15] MEDS: SUCRALFATE 1 GM TABLET PO SCH ×4 (06:16→20:38)
[2017-12-15] MEDS: ALBUTEROL/IPRATROPIUM 2.5mg-0.5mg/3ml NEB AEROSOL SCH ×4 (07:16→19:55)
[2017-12-15] MEDS: INSULIN ASPART 100unit/ml INJECTION SQ PRN ×2 (07:32→15:01)
[2017-12-15] MEDS: LACTOBACILLUS (15B cfu) CAPSULE PO SCH ×3 (09:01→18:26)
[2017-12-15] MEDS: CALCIUM 600 + VIT D 400 TABLET PO SCH ×3 (09:01→20:38)
[2017-12-15] MEDS: MAGNESIUM OXIDE 400 MG TABLET PO SCH ×2 (09:02→20:38)
[2017-12-15] MEDS: FOLIC ACID 1 MG TABLET PO SCH (09:02)
[2017-12-15] MEDS: PANTOPRAZOLE 40 MG INJECTION IVP SCH (09:02)
[2017-12-15] MEDS: AMLODIPINE 5 MG TABLET PO SCH (09:02)
[2017-12-15] MEDS: GUAIFENESIN 400MG TABLET PO SCH ×2 (09:02→15:01)
--- NOTE | 2017-12-15 18:50 | Progress Note ---
- Date 12/15/17 Subjective: The patient was seen this evening in her room accompanied by her daughter. She states she's feeling better. She received Lasix and albumin 2 yesterday and has urinated quite a bit since that time. The swelling in her arms and legs is better. Her creatinine did bump up slightly from 1.5-1.8. Her appetite is poor. She has very minimal cough. She denies shortness of breath. She states her eyes feel a little funny but she cannot describe it further. She has no pain. Vision is okay. Objective Vital signs: Temperature 97.0 F 12/15/17 16:00 Pulse Rate 97 12/15/17 16:00 Respiratory Rate 16 12/15/17 16:00 Blood Pressure 130/66 12/15/17 16:00 Pulse Oximetry 95 12/15/17 16:00 Rhythm: Sinus Tachycardia (Tele reviewed. ) Height/Weight/BMI: Height 1.63 m Weight 60.3 kg Body Mass Index 22.8 Comments: Afebrile, pulse 97, 130/66, 95% on room air I&O yesterday -2960. I&O today -1780. Weight is 60.3 kg. Admission weight was 56.9 kg. Maximum weight this hospitalization was 66.2 kg GEN-alert, oriented, no acute distress HEENT-sclera anicteric, pupils equal, oropharynx is moist NECK-supple CV-regular rate and rhythm CHEST-clear to auscultation bilaterally ABD-soft, nontender with positive bowel sounds -no Hall EXT-+1 edema, marketed improvement NEURO-no focal deficits SKIN-warm and dry Results - Labs CBC & Chem 7: 12/15/17 04:40 12/15/17 04:40 Labs: Magnesium 1.8 phosphorus 2.9, albumin 3.1, calcium has improved to 7.0 Aspergillus antigen was less than 0.5 Microbiology Results: Microbiology 12/13/17 18:26 Sputum, Expectorated Gram Stain - Final 12/13/17 18:26 Sputum, Expectorated Sputum Culture - Final More albicans Normal Jen 12/05/17 10:37 Port/Picc Blood Culture - Final No Growth After 5 Days 12/05/17 10:38 Port/Picc Blood Culture - Final No Growth After 5 Days 12/02/17 15:39 Peripheral/Iv Start Gram Stain - Final 12/02/17 15:39 Peripheral/Iv Start Blood Culture - Final Streptococcus mitis/oralis 12/02/17 15:31 Peripheral/Iv Start Blood Culture - Final No Growth After 5 Days Assessment and Plan (1) Pneumonia Current visit: Yes Status: Acute Assessment and Plan: Assessment GI bleed with symptomatic marked anemia, hgb 4.7 on admission. History of ibuprofen/ASA use. Anemia-hemoglobin currently stable at 7.5 and she has received a total of 4 units of blood this hospitalization Thrombocytopenia on admission-resolved post 2 platelet packs Acute hypoxic respiratory failure-resolved Probable pulmonary edema with fluid overload versus bilateral pneumonia Streptococcus mitis/oralis bacteremia on 1 of 2 blood cultures on 12/02/2017- repeat blood cultures negative LLL cavitary lesion-abscess versus necrotic mass Severe pancytopenia and neutropenia -resolved Hypokalemia (POA)-resolved Hypomagnesemia (POA) -resolved Hypophosphatemia-resolved Hyperphosphatemia -resolved Hyperglycemia secondary to steroids Ipcttyjeacty-qqfsyltutaog-pytpty secondary to recent transfusions Fluid overload -weight up much as 10 kg- currently weight up 8 kg Dizziness/Weakness Metastatic lung cancer, sees Dr. Rushing - NSCLCA with chemo. Currently on Carboplatin/Alimta for at least 4 months. 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 She diuresed very well with albumin and Lasix 2 yesterday. Diuretics were then discontinued. Unfortunately, creatinine did bump up from 1.5-1.8. She continues to have good urine output today. I will discontinue fluid restriction. We'll continue to hold diuretics today. We'll recheck renal panel tomorrow. White blood cell count is now down after discontinuation of steroids. CT chest tomorrow morning without contrast to follow-up on necrotic mass versus abscess Continue Unasyn for probable pulmonary abscess and for strep mitis bacteremia. When she is ready for discharge, could switch to Augmentin. She will likely need at least 2 weeks of antibiotics for the bacteremia and possibly a longer course of antibiotics for the pulmonary abscess. Aspergillus antigen was negative. Discontinue blood sugar monitoring and sliding scale insulin. We'll ask PT to give recommendations regarding whether or not the patient is stable for dismissal to home with home health versus needing nursing home versus inpatient rehabilitation Did talk with the patient's oncologist, Dr. Rushing yesterday. He would like to follow-up with her as an outpatient and she will likely need a PET scan. Discussed findings with the patient and her daughter at length today. Change Protonix to by mouth DVT Prophylaxis: SCD's GI Prophylaxis: Protonix Resuscitation Status: Do Not Resuscitate - Physician Narrative Narrative: Date: 12/15/17 Time: 1845 Hospital Course Summary Disclaimer: The visit summary below is not to be considered part of the above Progress Note. Hospital Course: 12/02/17 Admit, inpatient status, under the hospitalist service. GI bleed/tachycardia/symptomatic anemia -2U PRBC, 1 platelet pack, s/p 2L NS in ED, consult Dr. Kraft, hold ibu/ASA, IV PPI RUL pneumonia, immunocompromised/neutropenic -Vancomycin, Levaquin, cefepime - Neutropenic precautions Hypokalemia & Hypomagnesemia -Replace IV -Telemetry Advanced Directives -Daughter & Son are DPOAs -Would like to be DNR in and out- of-hospital. 12/03/17 Hgb 6.1 following 2U PRBC -- transfuse x2 more unit. Plt improved to 22K. ANC 1360 s/p Granix yesterday. Dr. Kraft not recommending procedures at this time but agrees w/ empiric tx for PUD. Will add oral Carafate to IV Protonix. Repeat CXR d/t hypoxia and increased dyspnea. Schedule DuoNeb QID. Cont IS. Wean O2 as able. Continue Vancomycin/Levaquin/cefepime day #2 for pneumonia. K improved to 3.4 - will give add'l oral KDur. Mg up to 1.9. 12/04/17 Hgb improved to 9.2 today Plt back to 16K today s/p Granix /6 - monitor for need Dr. Kraft not recommending procedures at this time but agrees w/ empiric tx for PUD. Repeat CXR with increasing RUL airspace disease. Schedule DuoNeb QID. Cont IS. Wean O2 as able. On Vancomycin/Levaquin/cefepime day #3 for pneumonia. Blood cultures with 1/2 enterococcus species - change to vanco and merrem and await susceptibilities K and mag replaced by night staff. Repeat now and replace. Give another dose of lasix with platelets. CXR in am 12/05/17 HGB trending down slowly, but remains above 8- monitor. FOB +. Continue PPI/Carafate- pt declined endoscopy. Slow improvement in leukocytosis, thrombocytopenia- s/p platelet transfusion, continue Granix. Persistent tachycardia, ongoing dyspnea. She did get Lasix yesterday. Will add low dose metoprolol for HR control- BP should support it. Continue telemetry monitoring. Check ECHO in AM. Repeat CXR in AM. Metastatic lung cancer- may need to consider CT if CXR does not improve on current abx therapy. Continue Meropenem. Consult Pharmacy to help with Vanco dosing. BC on admission + for Enterococcus- continue Vanco and await c/s. Follow up BC- NGTD. Continue O2, Nebs, supportive care. SCDs- avoid blood thinners given slow GI blood losses. DNR status noted. 12/06/17 CTA chest done yesterday shows a 4.7 x 3.3 cm thick-walled cavitary mass in the superior segment of the left lower lobe with an air-fluid level which may be secondary to a pulmonary abscess or infected bulla; infiltrates vs. edema; also b/l pleural effusions and chronic lung changes. WBC 12.2. BC + Enterococcus; c/ s pending. Repeat BC NGTD. Continue vancomycin and Merrem. Continue nebs. Consult Dr. Holm. Diet advanced. Hgb stable, 9.3. Poor food intake per RN -- may need to get calorie count if appetite doesn't improve now that it's been advanced. Cont IV PPI. K 3.1, Mg 1.5, Phos 1.6 -- KDur 20 mEq TID (taper as needed); MagOx 800 mg daily ; K-Phos 1000 mg WMHS. Echo done, pending. Tachycardic with elevated BP; increase metoprolol tartrate to 25 mg BID. Consult PT/OT. 12/07/17 Ongoing electrolyte deficiencies - d/t poor tolerance of PO meds will replace K (3.0) & Mg (1.5) IV. Phos improved to 2.9 Echo done: EF 60-65%; mild MR, mild TR, mild-mod PH Remains tachycardic; metoprolol was increased yesterday. Weight is going back up , but clinically appears dry. Oral intake has been poor. She doesn't like the consistency of Might[place] Shakes. May need to resume IVF. WBC 11.5, hgb 8.6. Continue Merrem and vanco for enterococcal bacteremia. Consider ID consult. Repeat BC NGTD. Discussed case with Dr Holm. Dr Holm discussed with patient and family about possible bronch-would like to hold on that for now. He recommends trial of steroids to see if will help-will start Solu-Medrol 125mg IV q 6 hours. Replace Mg and potassium IV secondary to tolerability with oral - will place oral potassium on hold. As BP elevated, will start low dose lisinopril 5mg nightly to help BP and preserve potassium. 12/08/17 Hypokalemia- Resume home PO potassium Continue on K-Phos and Mag ox for PO supplementation Continue Merrem and Vanco for enterococcal bacteremia. Recommendations 5-7 days of IV tx from negative blood cultures Hgb remains stable. Continue on PO Carafate 12/09/17 Hypokalemia, 2.3 -- replace IV Mag 1.5 -- increase MagOx to BID DC KPhos -- recheck in am along with BMP, Mg BC results have been updated: strep mitis/oralis, sensitive to vanco. Cont Merrem as well. Would prefer to diurese d/t weight gain and overall increase in O2 needs, but with low K will check CXR first. Pt opting for conservative treatment - not wanting bronch. Dr. Holm ordered aspergillus ag. Hgb decreased to 7.3; repeat in am. WBC elevated - suspect steroids. 12/10/17 Continued Hypokalemia, 2.8. Replace both IV and orally -- replace IV Magnesium improved to 2.1. BC results have been updated: strep mitis/oralis, sensitive to vanco. Cont Merrem as well. Appreciate consultation with Dr Holm Hgb remains low however is stable at decreased to 7.3 Continue to follow Leukocytosis- up to 18 today; likely steroid induced 12/11/2017 Hemoglobin is stable. White count is up today, likely secondary to steroids. No fevers. Hypokalemia has improved after IV and oral potassium. Basic metabolic today is mildly hemolyzed. Recheck basic metabolic profile this afternoon Recent wheezing today, weight is up 10 kg likely secondary to fluid overload. Start IV Lasix. Check chest x-ray and BNP today. Decrease IV steroids and monitor Monitor Accu-Cheks and give sliding scale insulin regarding hyperglycemia Check ionized calcium in the morning check PTH and vitamin D levels. Patient started on oral calcium and vitamin D 3 times a day. Discussed with Dr. Holm. Patient may benefit from bronchoscopy early this week if not improving. The patient states she is considering this procedure if she is not improving by then. She is currently on Merrem and vancomycin for pneumonia. One of 2 blood cultures on admission positive for strep mitis. Repeat blood cultures negative. 12/12/2017 Hemoglobin is stable. White count is up today, likely secondary to steroids. No fevers. Because of fluid overload, patient was given Lasix 40 mg IV yesterday with good urine output. Weight is down 1.2 kg today. She still overall about 8 kg up from admission and does have edema. CTA chest done earlier this week showed questionable pulmonary edema. Regarding acute kidney injury, creatinine today is 1.7. Baseline is 0.8. She did have an elevated Vanco trough 2 days ago. Vancomycin has been discontinued. Discussed with nephrology, will continue off of vancomycin. Avoid nephrotoxins. Okay to continue cautious diuresis since she is having pulmonary edema. Unasyn was started yesterday for questionable pulmonary abscess and one of 2 initial blood cultures positive for strep mitis. Discussed with infectious disease specialist. She stated another option would be Rocephin oral clindamycin for at least 2 weeks. The patient had previously received Levaquin for 2 days and then meropenem 12/04/2017 through 12/11/2017. She was on vancomycin from 12/02/2017 through 12/11/2017. We'll do a rapid taper of steroids. The patient is asymptomatic regarding hypocalcemia, continue oral calcium and vitamin D. PTH and vitamin D level still pending. 12/13/17 Continue to work on gentle diuresing of Lasix 40 mg daily. Weight is up 8Kg since admission. Encourage Moe hose to BLE and elevation of upper extremities Recommended decreasing salt intake as she is eating a lot of peanuts at the bedside Continue to follow renal function- Avoid nephrotoxins. Vanco stopped and changed to Unasyn IV for antimicrobial coverage Encouraged nutritional supplementation Monitor hypocalcemia. Currently on PO calcium and Vit D. Labs pending. Hgb remains stable at 7.3 and PLT count increased at 117 12/14/2017 White count continues to trend up. Steroids were tapered down and her last dose was yesterday. She has not had any fever or significant bandemia. Chest x-ray shows improvement in probable pulmonary edema. She continues on Unasyn for strep oralis bacteremia and left lower lobe cavitary lung lesion. ProCalcitonin is normal. C-reactive protein is slightly elevated at 20-no previous for comparison. Regarding fatigue, vital signs are stable. Will check magnesium and phosphorus. Fatigue may be in part secondary to discontinuation of steroids. We'll monitor. Renal function is improving. Regarding fluid overload and low albumin, will give IV albumin followed by Lasix 2 today. The patient was started on a low salt diet and fluid restriction yesterday. Hemoglobin is stable and platelets are improving. Pulmonary edema has resolved and she is on room air. Continue nutritional supplements for malnutrition and hypoalbuminemia Sliding scale insulin as needed for hyperglycemia secondary to steroids. Blood sugar should improve off of steroids.
[2017-12-16] MEDS: AMPICILLIN/SULBACTAM 3 G in NS 100 ML IV SCH ×2 (04:09→15:46)
[2017-12-16] MEDS: SUCRALFATE 1 GM TABLET PO SCH ×4 (06:37→20:39)
[2017-12-16] MEDS: PANTOPRAZOLE 40 MG TABLET PO SCH (06:40)
[2017-12-16] MEDS: ALBUTEROL/IPRATROPIUM 2.5mg-0.5mg/3ml NEB AEROSOL SCH ×4 (07:19→19:37)
--- NOTE | 2017-12-16 08:40 | CT Scan Report ---
Indication: abnormal ct chest with abscess vs necrotic mass PROCEDURE: CT chest wo con: Encounter: Subsequent Comparison: Chest CT dated December 05, 2017 Technique: Axial CT images were performed through the chest without intravenous contrast. Coronal and sagittal two-dimensional reformats. Automated Exposure Control and Iterative Reconstruction dose reducing techniques were utilized. Findings: Bilateral groundglass infiltrates have improved with a small amount remaining. There are persistent areas of patchy subpleural consolidation and opacity remaining in the upper lobes and superior segment right lower lobe. Small bilateral pleural effusions. There is less gas within the cavitary mass in the superior segment left lower lobe with a stable overall size. This represents the patient's known lung carcinoma. No pneumothorax. No dominant new pulmonary nodules or masses. The central airways are patent. No axillary adenopathy. Stable small mediastinal lymph nodes. Heart size is normal. No pericardial effusion. The upper abdomen shows no acute findings. 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 No gross new osseous lesions. Impression: Improving infectious or inflammatory infiltrates in the lungs with stable overall size of the cavitary left lower lobe mass. .
[2017-12-16] MEDS: LACTOBACILLUS (15B cfu) CAPSULE PO SCH ×3 (09:44→18:10)
[2017-12-16] MEDS: AMLODIPINE 5 MG TABLET PO SCH (09:44)
[2017-12-16] MEDS: CALCIUM 600 + VIT D 400 TABLET PO SCH ×3 (09:44→20:39)
[2017-12-16] MEDS: FOLIC ACID 1 MG TABLET PO SCH (09:44)
[2017-12-16] MEDS: MAGNESIUM OXIDE 400 MG TABLET PO SCH ×2 (09:44→20:39)
--- NOTE | 2017-12-16 14:28 | Progress Note ---
- Date 12/16/17 Subjective: Patient resting in bedside chair at the time of interview. Does not appear in distress. No reported chest pain, no palpitations, no shortness of breath, no subjective fever, no chills. Repeat CT scan of the chest performed today showed stable left lower lobe cavitary lesion and improving infectious/inflammatory infiltrate in lung bases. Leukocytosis resolved, WBC count 9300. Hemoglobin stable at 8.0 today. Patient has -2.3 L fluid balance over the past 24 hours. Patient's also lost 2 kg weight over past 24 hours. We will continue IV Unasyn for now. Plan to discharge patient on 2 week course of oral Augmentin at the time of discharge. Objective Vital signs: Temperature 95.8 F L 12/16/17 07:17 Pulse Rate 112 H 12/16/17 08:00 Respiratory Rate 14 12/16/17 10:41 Blood Pressure 143/75 H 12/16/17 08:00 Pulse Oximetry 95 12/16/17 10:41 Rhythm: Sinus Tachycardia (Tele reviewed. ) Height/Weight/BMI: Height 1.63 m Weight 58.7 kg Body Mass Index 22.8 - Additional findings Additional findings: General: Alert, awake, oriented 3. Not in acute distress. Head: Pupils equal, round, reactive to light and accommodation. Extraocular movements intact. No scleral icterus. Neck: No elevation in JVP. No pharyngeal erythema noted. Chest: The patient does not use accessory muscles for breathing. Lungs: Breath sounds audible on auscultation bilateral lung mcconnell. No wheezing , no rhonchi, no crepitations, no crackles. No pleural rub. CVS: S1, S2 heard on auscultation. Normal rate and rhythm. No murmur, no S3/S4 gallops. Abdomen: Soft, nontender, no distention. Bowel sounds appreciated on auscultation. : No flank tenderness, no suprapubic distention or tenderness. Skin: No rashes, no induration, no erythema. Capillary refill less than 4 seconds. Extremities: 1+ pitting pedal edema bilateral lower extremities. No calf tenderness bilaterally. Palpable dorsalis pedis and posterior tibial pulses bilateral lower extremities. QUARTER BACKER: Strength 5/5 bilateral upper and lower extremities. Sensations intact. No slurred speech, no facial droop. No discernible focal neurological deficits. Results - Labs CBC & Chem 7: 12/16/17 04:02 12/16/17 04:02 Microbiology Results: Microbiology 12/13/17 18:26 Sputum, Expectorated Gram Stain - Final 12/13/17 18:26 Sputum, Expectorated Sputum Culture - Final More albicans Normal Jen 12/05/17 10:37 Port/Picc Blood Culture - Final No Growth After 5 Days 12/05/17 10:38 Port/Picc Blood Culture - Final No Growth After 5 Days 12/02/17 15:39 Peripheral/Iv Start Gram Stain - Final 12/02/17 15:39 Peripheral/Iv Start Blood Culture - Final Streptococcus mitis/oralis 12/02/17 15:31 Peripheral/Iv Start Blood Culture - Final No Growth After 5 Days Assessment and Plan (1) Pneumonia Current visit: Yes Status: Acute Assessment and Plan: Assessment GI bleed with symptomatic anemia, hgb 4.7 on admission. History of ibuprofen/ ASA use. Anemia-hemoglobin currently stable at 7.5 and she has received a total of 4 units of blood this hospitalization Thrombocytopenia on admission-resolved post 2 platelet packs Acute hypoxic respiratory failure-resolved Probable pulmonary edema with fluid overload versus bilateral pneumonia Streptococcus mitis/oralis bacteremia on 1 of 2 blood cultures on 12/02/2017- repeat blood cultures negative LLL cavitary lesion-abscess versus necrotic mass Severe pancytopenia and neutropenia -resolved Hypokalemia (POA)-resolved Hypomagnesemia (POA) -resolved Hypophosphatemia-resolved Hyperphosphatemia -resolved Hyperglycemia secondary to steroids Xondxwoibdkr-[id number]-[id number] secondary to recent transfusions Fluid overload -weight up much as 10 kg- currently weight up 8 kg Dizziness/Weakness Metastatic lung cancer, sees Dr. Rushing - NSCLCA with chemo. Currently on Carboplatin/Alimta for at least 4 months. 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 We will start Lasix 20 mg by mouth every morning from tomorrow. Serum creatinine improved slightly to 1.7 compared to 1.8 yesterday. Overall, the patient appears to be improving. She continues to have good urine output today. We'll continue to hold diuretics today. We'll recheck renal panel tomorrow. White blood cell count is now down after discontinuation of steroids. CT chest today shows stable left lower lobe cavitary lesion and improving bilateral infiltrates. Case discussed with Dr. Holm, plan to switch to oral Augmentin tomorrow and thereafter tentative plan for discharge. Dr. Holm would like to see patient as an outpatient in 2 weeks and thereafter repeat CT scan and decide regarding CT-guided biopsy. Continue Unasyn for probable pulmonary abscess and for strep mitis bacteremia. When she is ready for discharge, could switch to Augmentin. She will likely need at least 2 weeks of antibiotics for the bacteremia and possibly a longer course of antibiotics for the pulmonary abscess. Aspergillus antigen was negative. We'll ask PT to give recommendations regarding whether or not the patient is stable for dismissal to home with home health versus needing [place] [facility] versus inpatient rehabilitation Did talk with the patient's oncologist, Dr. Rushing yesterday. He would like to follow-up with her as an outpatient and she will likely need a PET scan. DVT Prophylaxis: SCD's GI Prophylaxis: Protonix Resuscitation Status: Do Not Resuscitate - Time spent with patient Time with patient PN: 35 minutes - Physician Narrative Narrative: Date: 12/16/17 Time: 1424 Hospital Course Summary Disclaimer: The visit summary below is not to be considered part of the above Progress Note. Hospital Course: 12/02/17 Admit, inpatient status, under the hospitalist service. GI bleed/tachycardia/symptomatic anemia -2U PRBC, 1 platelet pack, s/p 2L NS in ED, consult Dr. Kraft, hold ibu/ASA, IV PPI RUL pneumonia, immunocompromised/neutropenic -Vancomycin, Levaquin, cefepime - Neutropenic precautions Hypokalemia & Hypomagnesemia -Replace IV -Telemetry Advanced Directives -Daughter & Son are DPOAs -Would like to be DNR in and out- of-hospital. 12/03/17 Hgb 6.1 following 2U PRBC -- transfuse x2 more unit. Plt improved to 22K. ANC 1360 s/p Granix yesterday. Dr. Kraft not recommending procedures at this time but agrees w/ empiric tx for PUD. Will add oral Carafate to IV Protonix. Repeat CXR d/t hypoxia and increased dyspnea. Schedule DuoNeb QID. Cont IS. Wean O2 as able. Continue Vancomycin/Levaquin/cefepime day #2 for pneumonia. K improved to 3.4 - will give add'l oral KDur. Mg up to 1.9. 12/04/17 Hgb improved to 9.2 today Plt back to 16K today s/p Granix 7/6 - monitor for need Dr. Kraft not recommending procedures at this time but agrees w/ empiric tx for PUD. Repeat CXR with increasing RUL airspace disease. Schedule DuoNeb QID. Cont IS. Wean O2 as able. On Vancomycin/Levaquin/cefepime day #3 for pneumonia. Blood cultures with 1/2 enterococcus species - change to vanco and merrem and await susceptibilities K and mag replaced by night staff. Repeat now and replace. Give another dose of lasix with platelets. CXR in am 12/05/17 HGB trending down slowly, but remains above 8- monitor. FOB +. Continue PPI/Carafate- pt declined endoscopy. Slow improvement in leukocytosis, thrombocytopenia- s/p platelet transfusion, continue Granix. Persistent tachycardia, ongoing dyspnea. She did get Lasix yesterday. Will add low dose metoprolol for HR control- BP should support it. Continue telemetry monitoring. Check ECHO in AM. Repeat CXR in AM. Metastatic lung cancer- may need to consider CT if CXR does not improve on current abx therapy. Continue Meropenem. Consult Pharmacy to help with Vanco dosing. BC on admission + for Enterococcus- continue Vanco and await c/s. Follow up BC- NGTD. Continue O2, Nebs, supportive care. SCDs- avoid blood thinners given slow GI blood losses. DNR status noted. 12/06/17 CTA chest done yesterday shows a 4.7 x 3.3 cm thick-walled cavitary mass in the superior segment of the left lower lobe with an air-fluid level which may be secondary to a pulmonary abscess or infected bulla; infiltrates vs. edema; also b/l pleural effusions and chronic lung changes. WBC 12.2. BC + Enterococcus; c/ s pending. Repeat BC NGTD. Continue vancomycin and Merrem. Continue nebs. Consult Dr. Holm. Diet advanced. Hgb stable, 9.3. Poor food intake per RN -- may need to get calorie count if appetite doesn't improve now that it's been advanced. Cont IV PPI. K 3.1, Mg 1.5, Phos 1.6 -- KDur 20 mEq TID (taper as needed); MagOx 800 mg daily ; K-Phos 1000 mg WMHS. Echo done, pending. Tachycardic with elevated BP; increase metoprolol tartrate to 25 mg BID. Consult PT/OT. 12/07/17 Ongoing electrolyte deficiencies - d/t poor tolerance of PO meds will replace K (3.0) & Mg (1.5) IV. Phos improved to 2.9 Echo done: EF 60-65%; mild MR, mild TR, mild-mod PH Remains tachycardic; metoprolol was increased yesterday. Weight is going back up , but clinically appears dry. Oral intake has been poor. She doesn't like the consistency of Might[place]akes. May need to resume IVF. WBC 11.5, hgb 8.6. Continue Merrem and vanco for enterococcal bacteremia. Consider ID consult. Repeat BC NGTD. Discussed case with Dr Holm. Dr Holm discussed with patient and family about possible bronch-would like to hold on that for now. He recommends trial of steroids to see if will help-will start Solu-Medrol 125mg IV q 6 hours. Replace Mg and potassium IV secondary to tolerability with oral - will place oral potassium on hold. As BP elevated, will start low dose lisinopril 5mg nightly to help BP and preserve potassium. 12/08/17 Hypokalemia- Resume home PO potassium Continue on K-Phos and Mag ox for PO supplementation Continue Merrem and Vanco for enterococcal bacteremia. Recommendations 5-7 days of IV tx from negative blood cultures Hgb remains stable. Continue on PO Carafate 12/09/17 Hypokalemia, 2.3 -- replace IV Mag 1.5 -- increase MagOx to BID DC KPhos -- recheck in am along with BMP, Mg BC results have been updated: strep mitis/oralis, sensitive to vanco. Cont Merrem as well. Would prefer to diurese d/t weight gain and overall increase in O2 needs, but with low K will check CXR first. Pt opting for conservative treatment - not wanting bronch. Dr. Holm ordered aspergillus ag. Hgb decreased to 7.3; repeat in am. WBC elevated - suspect steroids. 12/10/17 Continued Hypokalemia, 2.8. Replace both IV and orally -- replace IV Magnesium improved to 2.1. BC results have been updated: strep mitis/oralis, sensitive to vanco. Cont Merrem as well. Appreciate consultation with Dr Holm Hgb remains low however is stable at decreased to 7.3 Continue to follow Leukocytosis- up to 18 today; likely steroid induced 12/11/2017 Hemoglobin is stable. White count is up today, likely secondary to steroids. No fevers. Hypokalemia has improved after IV and oral potassium. Basic metabolic today is mildly hemolyzed. Recheck basic metabolic profile this afternoon Recent wheezing today, weight is up 10 kg likely secondary to fluid overload. Start IV Lasix. Check chest x-ray and BNP today. Decrease IV steroids and monitor Monitor Accu-Cheks and give sliding scale insulin regarding hyperglycemia Check ionized calcium in the morning check PTH and vitamin D levels. Patient started on oral calcium and vitamin D 3 times a day. Discussed with Dr. Holm. Patient may benefit from bronchoscopy early this week if not improving. The patient states she is considering this procedure if she is not improving by then. She is currently on Merrem and vancomycin for pneumonia. One of 2 blood cultures on admission positive for strep mitis. Repeat blood cultures negative. 12/12/2017 Hemoglobin is stable. White count is up today, likely secondary to steroids. No fevers. Because of fluid overload, patient was given Lasix 40 mg IV yesterday with good urine output. Weight is down 1.2 kg today. She still overall about 8 kg up from admission and does have edema. CTA chest done earlier this week showed questionable pulmonary edema. Regarding acute kidney injury, creatinine today is 1.7. Baseline is 0.8. She did have an elevated Vanco trough 2 days ago. Vancomycin has been discontinued. Discussed with nephrology, will continue off of vancomycin. Avoid nephrotoxins. Okay to continue cautious diuresis since she is having pulmonary edema. Unasyn was started yesterday for questionable pulmonary abscess and one of 2 initial blood cultures positive for strep mitis. Discussed with infectious disease specialist. She stated another option would be Rocephin oral clindamycin for at least 2 weeks. The patient had previously received Levaquin for 2 days and then meropenem 12/04/2017 through 12/11/2017. She was on vancomycin from 12/02/2017 through 12/11/2017. We'll do a rapid taper of steroids. The patient is asymptomatic regarding hypocalcemia, continue oral calcium and vitamin D. PTH and vitamin D level still pending. 12/13/17 Continue to work on gentle diuresing of Lasix 40 mg daily. Weight is up 8Kg since admission. Encourage Moe hose to BLE and elevation of upper extremities Recommended decreasing salt intake as she is eating a lot of peanuts at the bedside Continue to follow renal function- Avoid nephrotoxins. Vanco stopped and changed to Unasyn IV for antimicrobial coverage Encouraged nutritional supplementation Monitor hypocalcemia. Currently on PO calcium and Vit D. Labs pending. Hgb remains stable at 7.3 and PLT count increased at 117 12/14/2017 White count continues to trend up. Steroids were tapered down and her last dose was yesterday. She has not had any fever or significant bandemia. Chest x-ray shows improvement in probable pulmonary edema. She continues on Unasyn for strep oralis bacteremia and left lower lobe cavitary lung lesion. ProCalcitonin is normal. C-reactive protein is slightly elevated at 20-no previous for comparison. Regarding fatigue, vital signs are stable. Will check magnesium and phosphorus. Fatigue may be in part secondary to discontinuation of steroids. We'll monitor. Renal function is improving. Regarding fluid overload and low albumin, will give IV albumin followed by Lasix 2 today. The patient was started on a low salt diet and fluid restriction yesterday. Hemoglobin is stable and platelets are improving. Pulmonary edema has resolved and she is on room air. Continue nutritional supplements for malnutrition and hypoalbuminemia Sliding scale insulin as needed for hyperglycemia secondary to steroids. Blood sugar should improve off of steroids. 12/15/2017 Overall, the patient appears to be improving. She diuresed very well with albumin and Lasix 2 yesterday. Diuretics were then discontinued. Unfortunately, creatinine did bump up from 1.5-1.8. She continues to have good urine output today. I will discontinue fluid restriction. We'll continue to hold diuretics today. We'll recheck renal panel tomorrow. White blood cell count is now down after discontinuation of steroids. CT chest tomorrow morning without contrast to follow-up on necrotic mass versus abscess Continue Unasyn for probable pulmonary abscess and for strep mitis bacteremia. When she is ready for discharge, could switch to Augmentin. She will likely need at least 2 weeks of antibiotics for the bacteremia and possibly a longer course of antibiotics for the pulmonary abscess. Aspergillus antigen was negative. Discontinue blood sugar monitoring and sliding scale insulin. We'll ask PT to give recommendations regarding whether or not the patient is stable for dismissal to home with home health versus needing [place] [facility] versus inpatient rehabilitation Did talk with the patient's oncologist, Dr. Rushing yesterday. He would like to follow-up with her as an outpatient and she will likely need a PET scan. Discussed findings with the patient and her daughter at length today. Change Protonix to by mouth
[2017-12-16] MEDS: SALINE FLUSH 10ml SYRINGE IVF PRN (15:46)
[2017-12-16] MEDS: NS FLUSH BAG 500ml IV PRN (15:47)
--- NOTE | 2017-12-16 18:14 | Pulmonology Progress Note ---
Subjective Principal diagnosis: hypoxia Interval history: definitely better. on RA. No dyspnea with walking. No cough or sputum. no fevers or chills Exam Vital signs: Temperature 97.6 F 12/16/17 15:34 Pulse Rate 94 12/16/17 15:34 Respiratory Rate 16 12/16/17 15:34 Blood Pressure 140/66 H 12/16/17 15:34 Pulse Oximetry 92 12/16/17 15:34 Inpatient Medications: Generic Name Dose Route Start Last Admin Trade Name Freq PRN Reason Stop Dose Admin Acetaminophen 650 mg 12/02/17 17:10 12/10/17 21:52 Tylenol PO 650 mg Q5H PRN Administration Discomfort Albuterol/Ipratropium 3 ml 12/02/17 15:16 Duoneb IPPB RTQID PRN Albuterol/Ipratropium 3 ml 12/03/17 15:00 12/16/17 14:34 Duoneb AEROSOL 3 ml RTQID MARINA Administration Amlodipine Besylate 5 mg 12/06/17 09:00 12/16/17 09:44 Norvasc PO 5 mg DAILY MARINA Administration Bisacodyl 10 mg 12/02/17 13:40 Dulcolax RECTALLY DAILY PRN Constipation Calcium/Vitamin D 1 tab 12/11/17 09:00 12/16/17 15:46 Caltrate + D PO 1 tab TID MARINA Administration Dextrose 20 ml 12/11/17 13:21 D50%W IVP PRN PRN Hypoglycemia Diphenhydramine HCl 25 mg 12/11/17 04:11 12/13/17 22:06 Benadryl PO 25 mg HS PRN Administration Itching Folic Acid 1 mg 12/03/17 09:00 12/16/17 09:44 Folate PO 1 mg DAILY MARINA Administration Furosemide 20 mg 12/17/17 09:00 Lasix 20 Mg Tab PO DAILY MARINA Glucose 37.5 gm 12/11/17 13:21 Glutose 15 PO PRN PRN Hypoglycemia Ampicillin Sodium/Sulbactam 100 mls @ 200 mls/hr 12/11/17 16:00 12/16/17 15: 46 Sodium 3 g/ Sodium Chloride IV 200 mls/hr Q12H MARINA Administration Lactobacillus Acidophilus 2 cap 12/13/17 17:30 12/16/17 12:26 Culturelle PO 2 cap TIDWM MARINA Administration Lisinopril 5 mg 12/07/17 21:00 12/10/17 21:53 Prinivil PO 5 mg HS [facility] Administration Magnesium Hydroxide 30 ml 12/02/17 13:40 Mom PO DAILY PRN Constipation Magnesium Oxide 800 mg 12/09/17 21:00 12/16/17 09:44 Magox PO 800 mg BID MARINA Administration Metoprolol Tartrate 25 mg 12/06/17 17:30 12/16/17 09:44 Lopressor PO 25 mg BIDWM MARINA Administration Morphine Sulfate 4 mg 12/02/17 17:10 Morphine Sulfate Inj IVP Q3H PRN Pain Ondansetron HCl 4 mg 12/02/17 13:40 Zofran IVP Q6H PRN Nausea &/or vomiting Pantoprazole Sodium 40 mg 12/16/17 06:30 12/16/17 06:40 Protonix Tab PO 40 mg ACB [facility] Administration Potassium Chloride 20 meq 12/17/17 08:00 K-Dur 20 Meq Tablet PO WB [facility] Senna/Docusate Sodium 1 tab 12/02/17 13:40 Senna Plus Tablet PO BID PRN Constipation Sodium Chloride 10 - 80 ml 12/02/17 11:30 12/16/17 15:46 Iv Flush IVF 10 ml PRN PRN Administration Flushing Sodium Chloride 500 ml 12/04/17 05:42 12/16/17 15:47 Normal Saline IV 500 ml PRN PRN Administration Sucralfate 1 gm 12/03/17 17:00 12/16/17 12:26 Carafate PO 1 gm ACHS [facility] Administration Discontinued Medications Generic Name Dose Route Start Last Admin Trade Name Felipeq PRN Reason Stop Dose Admin Albumin Human 12.5 g 12/14/17 12:00 12/14/17 17:41 Albumin Human 12.5gm IV 12/14/17 18:01 12.5 g Q6H MARINA Administration Alteplase, Recombinant 2 mg 12/06/17 12:05 12/06/17 12:54 Cathflo Activase IV 12/06/17 12:06 2 mg O ONE Administration Alteplase, Recombinant 2 mg 12/12/17 10:00 12/12/17 10:31 Cathflo Activase IV 12/12/17 10:01 2 mg O ONE Administration Amlodipine Besylate 2.5 mg 12/04/17 09:00 12/06/17 12:06 Norvasc PO 12/06/17 09:00 Not Given DAILY MARINA Clonidine HCl 0.1 mg 12/03/17 17:44 12/03/17 18:24 Catapres PO 12/03/17 17:45 0.1 mg ONE TIME ONE Administration Furosemide 20 mg 12/03/17 18:35 12/03/17 18:41 Lasix 20 Mg/2 Ml IVP 12/03/17 18:36 20 mg ONCE ONE Administration Furosemide 20 mg 12/04/17 12:36 12/04/17 12:54 Lasix 20 Mg/2 Ml IVP 12/04/17 12:37 20 mg ONCE ONE Administration Furosemide 40 mg 12/11/17 13:30 12/13/17 08:06 Lasix 40 Mg/4 Ml IVP 40 mg DAILY MARINA Administration Furosemide 40 mg 12/14/17 12:00 12/14/17 18:49 Lasix 40 Mg/4 Ml IVP 12/14/17 15:01 40 mg Q6HR MARINA Administration Guaifenesin 400 mg 12/13/17 21:00 12/15/17 15:01 Mucinex PO 400 mg TID MARINA Administration Sodium Chloride 1,000 mls @ 999 mls/hr 12/02/17 11:30 12/02/17 12:59 Normal Saline IV Infused .Q1H1M MARINA Infusion Sodium Chloride 1,000 mls @ 999.9 mls/hr 12/02/17 12:20 12/02/17 13:17 Normal Saline IV 12/02/17 13:19 999.9 mls/hr .Q1H ONE Administration Levofloxacin/Dextrose 750 mg in 150 mls @ 100 mls/hr 12/02/17 12:45 12/02/17 14:48 Levaquin 750 Mg Premix IV Infused Q24H MARINA Infusion Levofloxacin/Dextrose 750 mg in 150 mls @ 100 mls/hr 12/04/17 12:00 12/04/17 14:46 Levaquin 750 Mg Premix IV Infused Q48H MARINA Infusion Magnesium Sulfate/Dextrose 1 gm in 100 mls @ 100 mls/hr 12/02/17 15:00 00:15 Mag Sulf 1gm Premix IV 12/02/17 16:59 Infused Q1H MARINA Infusion Lidocaine HCl 10 mg/ Potassium 100 mls @ 100 mls/hr 12/02/17 15:00 12/03/17 02:55 Chloride 10 meq/ Sodium IV 12/02/17 19:13 Infused Chloride .Q1H MARINA Infusion Cefepime HCl 1 gm/ Sodium 100 mls @ 200 mls/hr 12/02/17 15:15 Chloride IV Q6H MARINA Levofloxacin/Dextrose 750 mg in 150 mls @ 100 mls/hr 12/03/17 12:00 Levaquin 750 Mg Premix IV Q24H MARINA Vancomycin HCl 750 mg/ Sodium 500 mls @ 250 mls/hr 12/02/17 15:11 12/02/17 21 :18 Chloride IV 12/02/17 15:12 Not Given O ONE Cefepime HCl 1 gm/ Sodium 100 mls @ 200 mls/hr 12/02/17 15:45 12/04/17 11:48 Chloride IV Infused Q8H MARINA Infusion Vancomycin HCl 1,250 mg/ 250 mls @ 200 mls/hr 12/02/17 17:00 12/02/17 21:28 Sodium Chloride IV 12/02/17 17:01 Infused O ONE Infusion Vancomycin HCl 1,000 mg/ 250 mls @ 250 mls/hr 12/03/17 16:00 12/05/17 17:27 Sodium Chloride IV Infused Q24H MARINA Infusion Magnesium Sulfate/Dextrose 1 gm in 100 mls @ 100 mls/hr 12/04/17 06:15 10:25 Mag Sulf 1gm Premix IV 12/04/17 08:14 Infused Q1H MARINA Infusion Lidocaine HCl 10 mg/ Potassium 100 mls @ 100 mls/hr 12/04/17 06:15 12/04/17 10:31 Chloride 10 meq/ Sodium IV 12/04/17 10:28 Not Given Chloride .Q1H MARINA Lidocaine HCl 10 mg/ Potassium 100 mls @ 100 mls/hr 12/04/17 07:30 12/04/17 13:00 Chloride 10 meq/ Dextrose IV 12/04/17 10:29 Infused .Q1H MARINA Infusion Meropenem 500 mg/ Sodium 50 mls @ 100 mls/hr 12/04/17 16:00 12/11/17 09:44 Chloride IV Infused Q8H MARINA Infusion Vancomycin HCl 1,250 mg/ 250 mls @ 200 mls/hr 12/06/17 12:00 12/08/17 02:33 Sodium Chloride IV Infused Q18H MARINA Infusion Magnesium Sulfate/Dextrose 1 gm in 100 mls @ 100 mls/hr 12/07/17 09:08 12:44 Mag Sulf 1gm Premix IV 12/07/17 11:07 Infused Q1H MARINA Infusion Lidocaine HCl 10 mg/ Potassium 100 mls @ 100 mls/hr 12/07/17 10:00 12/07/17 17:47 Chloride 10 meq/ Sodium IV 12/07/17 14:13 100 mls/hr Chloride .Q1H MARINA Administration Vancomycin HCl 1,500 mg/ 500 mls @ 250 mls/hr 12/08/17 19:00 12/10/17 07:50 Sodium Chloride IV Not Given Q18H MARINA Lidocaine HCl 10 mg/ Potassium 100 mls @ 100 mls/hr 12/09/17 11:15 12/09/17 16:31 Chloride 10 meq/ Sodium IV 12/09/17 15:28 Infused Chloride .Q1H MARINA Infusion Magnesium Sulfate/Dextrose 1 gm in 100 mls @ 100 mls/hr 12/09/17 16:15 21:45 Mag Sulf 1gm Premix IV 12/09/17 18:14 Infused Q1H MARINA Infusion Potassium Chloride 10 meq in 100 mls @ 100 mls/hr 12/10/17 09:45 12/10/17 15: 28 Potassium Chloride Premix IV 12/10/17 13:44 Infused Q1H MARINA Infusion Vancomycin HCl 1,000 mg/ 250 mls @ 250 mls/hr 12/11/17 06:00 12/11/17 06:33 Sodium Chloride IV 250 mls/hr Q24H MARINA Administration Calcium Chloride 4.65 meq/ 103.4191 mls @ 50 mls/hr 12/12/17 09:00 12/12/17 12:26 Sodium Chloride IV 12/12/17 11:04 Infused O ONE Infusion Insulin Aspart 1 - 5 unit 12/11/17 13:21 12/13/17 06:41 Novolog SQ 3 unit SS PRN Administration Hyperglycemia Protocol Insulin Aspart 2 - 8 unit 12/13/17 07:45 12/15/17 15:01 Novolog SQ 2 unit SS PRN Administration Hyperglycemia Protocol Magnesium Oxide 800 mg 12/06/17 11:00 12/09/17 08:40 Magox PO 800 mg DAILY MARINA Administration Methylprednisolone Sodium Succinate 125 mg 12/07/17 17:15 12/11/17 09:14 Solu-Medrol IVP 125 mg Q6HR MARINA Administration Methylprednisolone Sodium Succinate 62.5 mg 12/11/17 15:00 12/12/17 09:12 Solu-Medrol IVP 62.5 mg Q6HR MARINA Administration Metoprolol Tartrate 12.5 mg 12/05/17 17:30 12/06/17 08:31 Lopressor PO 12.5 mg BIDWM MARINA Administration Pantoprazole Sodium 40 mg 12/02/17 13:44 12/15/17 09:02 Protonix Iv IVP 40 mg BID MARINA Administration Potassium Chloride 20 meq 12/03/17 12:02 12/03/17 12:25 K-Dur 20 Meq Tablet PO 12/03/17 12:03 20 meq O ONE Administration Potassium Chloride 40 meq 12/04/17 15:15 12/04/17 16:45 K-Dur 20 Meq Tablet PO 12/04/17 17:16 40 meq Q2H MARINA Administration Potassium Chloride 20 meq 12/06/17 12:00 12/11/17 18:19 K-Dur 20 Meq Tablet PO 20 meq TIDWM MARINA Administration Potassium Chloride 40 meq 12/09/17 05:51 12/09/17 06:06 K-Dur 20 Meq Tablet PO 12/09/17 05:52 40 meq O ONE Administration Potassium Chloride 20 meq 12/12/17 09:00 12/16/17 09:44 K-Dur 20 Meq Tablet PO 20 meq DAILY MARINA Administration Prednisone 20 mg 12/13/17 08:00 12/13/17 08:04 Deltasone 10 Mg PO 12/15/17 07:59 20 mg WB MARINA Administration Prochlorperazine Edisylate 10 mg 12/02/17 16:59 12/04/17 15:03 Compazine Iv IVP 10 mg Q6H PRN Administration Nausea &/or vomiting Sodium Chloride 500 ml 12/02/17 15:06 12/05/17 08:19 Normal Saline IV 500 ml PRN PRN Administration Sodium Phosphate 1,000 mg 12/06/17 12:00 12/09/17 12:23 K-Phos *Neutral* Tablet PO 1,000 mg WMHS MARINA Administration Spironolactone 50 mg 12/09/17 16:15 12/09/17 17:24 Aldactone 50 Mg PO 12/09/17 16:16 50 mg O ONE Administration Spironolactone 50 mg 12/10/17 13:00 12/10/17 13:10 Aldactone 50 Mg PO 12/10/17 13:01 50 mg ONE TIME ONE Administration Tbo-Filgrastim 480 mcg 12/02/17 19:13 12/02/17 22:10 Granix SQ 12/02/17 19:14 480 mcg O ONE Administration Vancomycin HCl 1 each 12/02/17 15:11 12/03/17 09:11 Pharmacy Consult - Vancomycin 12/02/17 15:12 1 each O ONE Administration Vancomycin HCl 1 each 12/05/17 11:13 Pharmacy Consult - Vancomycin 12/05/17 11:14 O ONE - Constitutional no acute distress - Routine HEENT Exam Head: Present: normocephalic, atraumatic ENT: Absent: mucous membranes dry - Routine Respiratory Exam Present: decreased breath sounds. Absent: accessory muscle use, dyspnea - Routine Cardiovascular Exam Present: RRR - Routine Extremities Exam Present: edema. Absent: cyanosis, clubbing Results - Laboratory Findings Laboratory: Laboratory Results - last 48 hr 12/11/17 12/11/17 12/14/17 08:55 14:23 20:11 WBC RBC Hgb Hct MCV MCH MCHC RDW Std Deviation Plt Count MPV Neutrophils % (Manual) Band Neutrophils % Lymphocytes % (Manual) Monocytes % (Manual) Eosinophils % (Manual) Myelocytes % Neutrophils # (Manual) Band Neutrophils # Lymphocytes # (Manual) Monocytes # (Manual) Eosinophils # (Manual) Myelocytes # Poikilocytosis Anisocytosis Macrocytosis RBC Morph Comment Turbidity Sodium Potassium Chloride Carbon Dioxide Anion Gap BUN Creatinine GFR Calculation BUN/Creatinine Ratio Glucose Glucometer 210 Calculated Osmolality Calcium Phosphorus Magnesium Icterus Index Albumin Vit D 1,25-Dihydroxy 95 H Specimen Hemolysis A. galactomannan Ag <0.500 12/15/17 12/15/17 12/15/17 04:40 04:40 06:46 WBC 14.8 H D RBC 2.54 L Hgb 8.0 L Hct 25.8 L MCV 101.6 H MCH 31.5 MCHC 31.0 RDW Std Deviation 52.5 H Plt Count 115 L MPV 11.4 Neutrophils % (Manual) 92.0 H Band Neutrophils % 2.0 Lymphocytes % (Manual) 2.0 L Monocytes % (Manual) 3.0 Eosinophils % (Manual) 1.0 Myelocytes % Neutrophils # (Manual) 13.6 H Band Neutrophils # 0.3 Lymphocytes # (Manual) 0.3 L Monocytes # (Manual) 0.4 Eosinophils # (Manual) 0.1 Myelocytes # Poikilocytosis 1+ Anisocytosis 2+ Macrocytosis 1+ RBC Morph Comment Abnormal Turbidity < 20 Sodium 145 Potassium 3.5 L Chloride 100 Carbon Dioxide 35 H Anion Gap 10 BUN 28.0 H Creatinine 1.8 H D GFR Calculation 27 BUN/Creatinine Ratio 16 Glucose 155 H Glucometer 190 Calculated Osmolality 288 H Calcium 7.0 L D Phosphorus 2.9 Magnesium 1.8 Icterus Index < 2 Albumin 3.1 L Vit D 1,25-Dihydroxy Specimen Hemolysis < 15 A. galactomannan Ag 12/15/17 12/15/17 12/16/17 10:11 14:22 04:02 WBC 9.3 RBC 2.55 L Hgb 8.0 L Hct 25.9 L MCV 101.6 H MCH 31.4 MCHC 30.9 L RDW Std Deviation 53.6 H Plt Count 114 L MPV 11.9 Neutrophils % (Manual) 86.0 H Band Neutrophils % 4.0 Lymphocytes % (Manual) 2.0 L Monocytes % (Manual) 5.0 Eosinophils % (Manual) 2.0 Myelocytes % 1.0 H Neutrophils # (Manual) 8.0 H Band Neutrophils # 0.4 Lymphocytes # (Manual) 0.2 L Monocytes # (Manual) 0.5 Eosinophils # (Manual) 0.2 Myelocytes # 0.1 Poikilocytosis 1+ Anisocytosis 2+ Macrocytosis 1+ RBC Morph Comment Abnormal Turbidity Sodium Potassium Chloride Carbon Dioxide Anion Gap BUN Creatinine GFR Calculation BUN/Creatinine Ratio Glucose Glucometer 80 189 Calculated Osmolality Calcium Phosphorus Magnesium Icterus Index Albumin Vit D 1,25-Dihydroxy Specimen Hemolysis A. galactomannan Ag 12/16/17 04:02 WBC RBC Hgb Hct MCV MCH MCHC RDW Std Deviation Plt Count MPV Neutrophils % (Manual) Band Neutrophils % Lymphocytes % (Manual) Monocytes % (Manual) Eosinophils % (Manual) Myelocytes % Neutrophils # (Manual) Band Neutrophils # Lymphocytes # (Manual) Monocytes # (Manual) Eosinophils # (Manual) Myelocytes # Poikilocytosis Anisocytosis Macrocytosis RBC Morph Comment Turbidity < 20 Sodium 143 Potassium 3.6 Chloride 100 Carbon Dioxide 35 H Anion Gap 8 BUN 23.0 H Creatinine 1.7 H GFR Calculation 29 BUN/Creatinine Ratio 14 Glucose 140 H Glucometer Calculated Osmolality 281 H Calcium 7.4 L Phosphorus 3.2 Magnesium Icterus Index < 2 Albumin 3.2 L Vit D 1,25-Dihydroxy Specimen Hemolysis < 15 A. galactomannan Ag - Diagnostic Findings CT scan - chest: report reviewed, image reviewed Assessment and Plan (1) Acute respiratory failure with hypoxia Status: Acute Assessment and plan: improved, now on room air She has made very good improvements on antibiotic treatment Current Visit: Yes (2) Non-small cell lung cancer Status: Chronic Assessment and plan: treated over the last 24 months for NSCLCA with chemo. Dr Rushing is her oncologist. Currently on Carboplatin/Alimta for at least 4 months according to the family. She has a LLL mass lesions. She has had severe pancytopenia. The patient had a CT chest 11/23 at [facility] showing developing left effusion and bilateral ground glass infiltrates. Presented with Neutropenic fever, pneumonia symptoms. Latest CT chest shows LLL mass and dramatic improvements in her bilateral infiltrates. She has centrilobular emphysema. I do have concern about opportunistic infections given her immune compromised condition vs persistent malignant mass in the LLL. She is much better with antibiotics however. 1 of her blood cultures did show Strep mitis. We are currently managing with unasyn. I would recommend changing to Augmentin 875 BID for the next 14 days. I will plan to repeat the CT in 2 weeks and see her as an outpatient so we can plan on further treatment and followup. She should also followup with Dr Rushing Current Visit: No (3) Pneumonia Status: Acute Assessment and plan: continue empiric therapy with Unasyn, change to Augmentin for Strep mitis. Current Visit: Yes - Time Spent With Patient Total time spent is greater than 50% in coordination of care (as documented) at patient's floor/unit and/or counseling patient: less than 15 minutes
[2017-12-17] MEDS: AMPICILLIN/SULBACTAM 3 G in NS 100 ML IV SCH ×2 (04:40→16:35)
[2017-12-17] MEDS: PANTOPRAZOLE 40 MG TABLET PO SCH (06:17)
[2017-12-17] MEDS: SUCRALFATE 1 GM TABLET PO SCH ×4 (06:17→21:06)
[2017-12-17] MEDS: ALBUTEROL/IPRATROPIUM 2.5mg-0.5mg/3ml NEB AEROSOL SCH ×4 (07:07→18:52)
[2017-12-17] MEDS: CALCIUM 600 + VIT D 400 TABLET PO SCH ×3 (08:45→21:06)
[2017-12-17] MEDS: MAGNESIUM OXIDE 400 MG TABLET PO SCH ×2 (08:46→21:05)
[2017-12-17] MEDS: LACTOBACILLUS (15B cfu) CAPSULE PO SCH ×3 (08:46→16:32)
[2017-12-17] MEDS: AMLODIPINE 5 MG TABLET PO SCH (08:46)
[2017-12-17] MEDS: FOLIC ACID 1 MG TABLET PO SCH (08:46)
[2017-12-17] MEDS: FUROSEMIDE 20 MG TABLET PO SCH (08:47)
[2017-12-17] MEDS: SALINE FLUSH 10ml SYRINGE IVF PRN ×3 (08:47→17:58)
[2017-12-17] MEDS ORDERED: FUROSEMIDE 20 MG/2 ML INJECTION IVP ONE (12:32)
[2017-12-17] MEDS ORDERED: NS FLUSH BAG 500ml IV PRN (12:32)
[2017-12-17] MEDS ORDERED: SALINE FLUSH 10ml SYRINGE IV PRN (12:32)
--- NOTE | 2017-12-17 12:40 | Progress Note ---
- Date 12/17/17 Objective Vital signs: Temperature 98.0 F 12/17/17 07:39 Pulse Rate 105 H 12/17/17 09:21 Respiratory Rate 16 12/17/17 10:30 Blood Pressure 133/66 12/17/17 09:21 Pulse Oximetry 95 12/17/17 10:30 Rhythm: Sinus Tachycardia (Tele reviewed. ) Height/Weight/BMI: Height 1.63 m Weight 58 kg Body Mass Index 22.8 Results - Labs CBC & Chem 7: 12/17/17 11:38 12/17/17 11:38 Microbiology Results: Microbiology 12/13/17 18:26 Sputum, Expectorated Gram Stain - Final 12/13/17 18:26 Sputum, Expectorated Sputum Culture - Final More albicans Normal Jen 12/05/17 10:37 Port/Picc Blood Culture - Final No Growth After 5 Days 12/05/17 10:38 Port/Picc Blood Culture - Final No Growth After 5 Days 12/02/17 15:39 Peripheral/Iv Start Gram Stain - Final 12/02/17 15:39 Peripheral/Iv Start Blood Culture - Final Streptococcus mitis/oralis 12/02/17 15:31 Peripheral/Iv Start Blood Culture - Final No Growth After 5 Days Assessment and Plan (1) Pneumonia Current visit: Yes Status: Acute Assessment and Plan: Assessment GI bleed with symptomatic anemia, hgb 4.7 on admission. History of ibuprofen/ ASA use. Anemia-hemoglobin dropped to 6.9 this morning, she has received a total of 4 units of blood this hospitalization Thrombocytopenia on admission-resolved post 2 platelet packs Acute hypoxic respiratory failure-resolved Probable pulmonary edema with fluid overload versus bilateral pneumonia Streptococcus mitis/oralis bacteremia on 1 of 2 blood cultures on 12/02/2017- repeat blood cultures negative LLL cavitary lesion-abscess versus necrotic mass Severe pancytopenia and neutropenia -resolved Hypokalemia (POA)-resolved Hypomagnesemia (POA) -resolved Hypophosphatemia-resolved Hyperphosphatemia -resolved Hyperglycemia secondary to steroids [id number] secondary to recent transfusions Fluid overload -weight up much as 10 kg- currently weight up 8 kg Dizziness/Weakness Metastatic lung cancer, sees Dr. Rushing - NSCLCA with chemo. Currently on Carboplatin/Alimta for at least 4 months. 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 Continue Lasix 20 mg by mouth every morning. Hemoglobin dropped down to 6.9 this morning when compared to 8 yesterday. We will type, cross match and transfuse 1 unit of it radiated, Lukert reduced PRBCs. We will recheck H&H 1 hour posttransfusion. Serum creatinine 1.8. Overall, the patient appears to be improving. She continues to have good urine output today. We'll continue to hold diuretics today. We'll recheck renal panel tomorrow. WAC: [address] chest repeated on 12/16/2017 shows stable left lower lobe cavitary lesion and improving bilateral infiltrates. Case discussed with Dr. Holm, plan to switch to oral Augmentin today and thereafter tentative plan for discharge. Dr. Holm would like to see patient as an outpatient in 2 weeks and thereafter repeat CT scan and decide regarding CT-guided biopsy. Unasyn discontinued. We will switch to Augmentin. She will likely need at least 2 weeks of antibiotics for the bacteremia and possibly a longer course of antibiotics for the pulmonary abscess. Aspergillus antigen was negative. Tentative plan for discharge home with home health, case discussed with case preparer and liner Miss Waite. DVT Prophylaxis: SCD's GI Prophylaxis: Protonix Resuscitation Status: Do Not Resuscitate - Time spent with patient Time with patient PN: 35 minutes - Physician Narrative Narrative: Date: 12/17/17 Time: 1234 Hospital Course Summary Disclaimer: The visit summary below is not to be considered part of the above Progress Note. Hospital Course: 12/02/17 Admit, inpatient status, under the hospitalist service. GI bleed/tachycardia/symptomatic anemia -2U PRBC, 1 platelet pack, s/p 2L NS in ED, consult Dr. Kraft, hold ibu/ASA, IV PPI RUL pneumonia, immunocompromised/neutropenic -Vancomycin, Levaquin, cefepime - Neutropenic precautions Hypokalemia & Hypomagnesemia -Replace IV -Telemetry Advanced Directives -Daughter & Son are DPOAs -Would like to be DNR in and out- of-hospital. 12/03/17 Hgb 6.1 following 2U PRBC -- transfuse x2 more unit. Plt improved to 22K. ANC 1360 s/p Granix yesterday. Dr. Kraft not recommending procedures at this time but agrees w/ empiric tx for PUD. Will add oral Carafate to IV Protonix. Repeat CXR d/t hypoxia and increased dyspnea. Schedule DuoNeb QID. Cont IS. Wean O2 as able. Continue Vancomycin/Levaquin/cefepime day #2 for pneumonia. K improved to 3.4 - will give add'l oral KDur. Mg up to 1.9. 12/04/17 Hgb improved to 9.2 today Plt back to 16K today s/p Granix 7/6 - monitor for need Dr. Kraft not recommending procedures at this time but agrees w/ empiric tx for PUD. Repeat CXR with increasing RUL airspace disease. Schedule DuoNeb QID. Cont IS. Wean O2 as able. On Vancomycin/Levaquin/cefepime day #3 for pneumonia. Blood cultures with 1/2 enterococcus species - change to vanco and merrem and await susceptibilities K and mag replaced by night staff. Repeat now and replace. Give another dose of lasix with platelets. CXR in am 12/05/17 HGB trending down slowly, but remains above 8- monitor. FOB +. Continue PPI/Carafate- pt declined endoscopy. Slow improvement in leukocytosis, thrombocytopenia- s/p platelet transfusion, continue Granix. Persistent tachycardia, ongoing dyspnea. She did get Lasix yesterday. Will add low dose metoprolol for HR control- BP should support it. Continue telemetry monitoring. Check ECHO in AM. Repeat CXR in AM. Metastatic lung cancer- may need to consider CT if CXR does not improve on current abx therapy. Continue Meropenem. Consult Pharmacy to help with Vanco dosing. BC on admission + for Enterococcus- continue Vanco and await c/s. Follow up BC- NGTD. Continue O2, Nebs, supportive care. SCDs- avoid blood thinners given slow GI blood losses. DNR status noted. 12/06/17 CTA chest done yesterday shows a 4.7 x 3.3 cm thick-walled cavitary mass in the superior segment of the left lower lobe with an air-fluid level which may be secondary to a pulmonary abscess or infected bulla; infiltrates vs. edema; also b/l pleural effusions and chronic lung changes. WBC 12.2. BC + Enterococcus; c/ s pending. Repeat BC NGTD. Continue vancomycin and Merrem. Continue nebs. Consult Dr. Holm. Diet advanced. Hgb stable, 9.3. Poor food intake per RN -- may need to get calorie count if appetite doesn't improve now that it's been advanced. Cont IV PPI. K 3.1, Mg 1.5, Phos 1.6 -- KDur 20 mEq TID (taper as needed); MagOx 800 mg daily ; K-Phos 1000 mg WMHS. Echo done, pending. Tachycardic with elevated BP; increase metoprolol tartrate to 25 mg BID. Consult PT/OT. 12/07/17 Ongoing electrolyte deficiencies - d/t poor tolerance of PO meds will replace K (3.0) & Mg (1.5) IV. Phos improved to 2.9 Echo done: EF 60-65%; mild MR, mild TR, mild-mod PH Remains tachycardic; metoprolol was increased yesterday. Weight is going back up , but clinically appears dry. Oral intake has been poor. She doesn't like the consistency of Might[place]akes. May need to resume IVF. WBC 11.5, hgb 8.6. Continue Merrem and vanco for enterococcal bacteremia. Consider ID consult. Repeat BC NGTD. Discussed case with Dr Holm. Dr Holm discussed with patient and family about possible bronch-would like to hold on that for now. He recommends trial of steroids to see if will help-will start Solu-Medrol 125mg IV q 6 hours. Replace Mg and potassium IV secondary to tolerability with oral - will place oral potassium on hold. As BP elevated, will start low dose lisinopril 5mg nightly to help BP and preserve potassium. 12/08/17 Hypokalemia- Resume home PO potassium Continue on K-Phos and Mag ox for PO supplementation Continue Merrem and Vanco for enterococcal bacteremia. Recommendations 5-7 days of IV tx from negative blood cultures Hgb remains stable. Continue on PO Carafate 12/09/17 Hypokalemia, 2.3 -- replace IV Mag 1.5 -- increase MagOx to BID DC KPhos -- recheck in am along with BMP, Mg BC results have been updated: strep mitis/oralis, sensitive to vanco. Cont Merrem as well. Would prefer to diurese d/t weight gain and overall increase in O2 needs, but with low K will check CXR first. Pt opting for conservative treatment - not wanting bronch. Dr. Holm ordered aspergillus ag. Hgb decreased to 7.3; repeat in am. WBC elevated - suspect steroids. 12/10/17 Continued Hypokalemia, 2.8. Replace both IV and orally -- replace IV Magnesium improved to 2.1. BC results have been updated: strep mitis/oralis, sensitive to vanco. Cont Merrem as well. Appreciate consultation with Dr Holm Hgb remains low however is stable at decreased to 7.3 Continue to follow Leukocytosis- up to 18 today; likely steroid induced 12/11/2017 Hemoglobin is stable. White count is up today, likely secondary to steroids. No fevers. Hypokalemia has improved after IV and oral potassium. Basic metabolic today is mildly hemolyzed. Recheck basic metabolic profile this afternoon Recent wheezing today, weight is up 10 kg likely secondary to fluid overload. Start IV Lasix. Check chest x-ray and BNP today. Decrease IV steroids and monitor Monitor Accu-Cheks and give sliding scale insulin regarding hyperglycemia Check ionized calcium in the morning check PTH and vitamin D levels. Patient started on oral calcium and vitamin D 3 times a day. Discussed with Dr. Holm. Patient may benefit from bronchoscopy early this week if not improving. The patient states she is considering this procedure if she is not improving by then. She is currently on Merrem and vancomycin for pneumonia. One of 2 blood cultures on admission positive for strep mitis. Repeat blood cultures negative. 12/12/2017 Hemoglobin is stable. White count is up today, likely secondary to steroids. No fevers. Because of fluid overload, patient was given Lasix 40 mg IV yesterday with good urine output. Weight is down 1.2 kg today. She still overall about 8 kg up from admission and does have edema. CTA chest done earlier this week showed questionable pulmonary edema. Regarding acute kidney injury, creatinine today is 1.7. Baseline is 0.8. She did have an elevated Vanco trough 2 days ago. Vancomycin has been discontinued. Discussed with nephrology, will continue off of vancomycin. Avoid nephrotoxins. Okay to continue cautious diuresis since she is having pulmonary edema. Unasyn was started yesterday for questionable pulmonary abscess and one of 2 initial blood cultures positive for strep mitis. Discussed with infectious disease specialist. She stated another option would be Rocephin oral clindamycin for at least 2 weeks. The patient had previously received Levaquin for 2 days and then meropenem 12/04/2017 through 12/11/2017. She was on vancomycin from 12/02/2017 through 12/11/2017. We'll do a rapid taper of steroids. The patient is asymptomatic regarding hypocalcemia, continue oral calcium and vitamin D. PTH and vitamin D level still pending. 12/13/17 Continue to work on gentle diuresing of Lasix 40 mg daily. Weight is up 8Kg since admission. Encourage Moe hose to BLE and elevation of upper extremities Recommended decreasing salt intake as she is eating a lot of peanuts at the bedside Continue to follow renal function- Avoid nephrotoxins. Vanco stopped and changed to Unasyn IV for antimicrobial coverage Encouraged nutritional supplementation Monitor hypocalcemia. Currently on PO calcium and Vit D. Labs pending. Hgb remains stable at 7.3 and PLT count increased at 117 12/14/2017 White count continues to trend up. Steroids were tapered down and her last dose was yesterday. She has not had any fever or significant bandemia. Chest x-ray shows improvement in probable pulmonary edema. She continues on Unasyn for strep oralis bacteremia and left lower lobe cavitary lung lesion. ProCalcitonin is normal. C-reactive protein is slightly elevated at 20-no previous for comparison. Regarding fatigue, vital signs are stable. Will check magnesium and phosphorus. Fatigue may be in part secondary to discontinuation of steroids. We'll monitor. Renal function is improving. Regarding fluid overload and low albumin, will give IV albumin followed by Lasix 2 today. The patient was started on a low salt diet and fluid restriction yesterday. Hemoglobin is stable and platelets are improving. Pulmonary edema has resolved and she is on room air. Continue nutritional supplements for malnutrition and hypoalbuminemia Sliding scale insulin as needed for hyperglycemia secondary to steroids. Blood sugar should improve off of steroids. 12/15/2017 Overall, the patient appears to be improving. She diuresed very well with albumin and Lasix 2 yesterday. Diuretics were then discontinued. Unfortunately, creatinine did bump up from 1.5-1.8. She continues to have good urine output today. I will discontinue fluid restriction. We'll continue to hold diuretics today. We'll recheck renal panel tomorrow. White blood cell count is now down after discontinuation of steroids. CT chest tomorrow morning without contrast to follow-up on necrotic mass versus abscess Continue Unasyn for probable pulmonary abscess and for strep mitis bacteremia. When she is ready for discharge, could switch to Augmentin. She will likely need at least 2 weeks of antibiotics for the bacteremia and possibly a longer course of antibiotics for the pulmonary abscess. Aspergillus antigen was negative. Discontinue blood sugar monitoring and sliding scale insulin. We'll ask PT to give recommendations regarding whether or not the patient is stable for dismissal to home with home health versus needing usp versus inpatient rehabilitation Did talk with the patient's oncologist, Dr. Rushing yesterday. He would like to follow-up with her as an outpatient and she will likely need a PET scan. Discussed findings with the patient and her daughter at length today. Change Protonix to by mouth 12/16/2017 Diuretic medication held for now, patient has had -2.3 L fluid balance with 2 KG weight loss from yesterday. We will start Lasix 20 mg by mouth every morning from tomorrow. Serum creatinine improved slightly to 1.7 compared to 1.8 yesterday. Overall, the patient appears to be improving. She continues to have good urine output today. We'll continue to hold diuretics today. We'll recheck renal panel tomorrow. White blood cell count is now down after discontinuation of steroids. CT chest today shows stable left lower lobe cavitary lesion and improving bilateral infiltrates. Case discussed with Dr. Holm, plan to switch to oral Augmentin tomorrow and thereafter tentative plan for discharge. Dr. Holm would like to see patient as an outpatient in 2 weeks and thereafter repeat CT scan and decide regarding CT-guided biopsy. Continue Unasyn for probable pulmonary abscess and for strep mitis bacteremia. When she is ready for discharge, could switch to Augmentin. She will likely need at least 2 weeks of antibiotics for the bacteremia and possibly a longer course of antibiotics for the pulmonary abscess. Aspergillus antigen was negative. We'll ask PT to give recommendations regarding whether or not the patient is stable for dismissal to home with home health versus needing usp versus inpatient rehabilitation 12/17/2017 Patient has had -2.5 L fluid balance with 1.3 KG weight loss from yesterday. Continue Lasix 20 mg by mouth every morning. Hemoglobin dropped down to 6.9 this morning when compared to 8 yesterday. We will type, cross match and transfuse 1 unit of it radiated, Lukert reduced PRBCs. We will recheck H&H 1 hour posttransfusion. Serum creatinine 1.8. Overall, the patient appears to be improving. She continues to have good urine output today. We'll continue to hold diuretics today. We'll recheck renal panel tomorrow. WAC: [address] chest repeated on 12/16/2017 shows stable left lower lobe cavitary lesion and improving bilateral infiltrates. Case discussed with Dr. Holm, plan to switch to oral Augmentin today and thereafter tentative plan for discharge. Dr. Holm would like to see patient as an outpatient in 2 weeks and thereafter repeat CT scan and decide regarding CT-guided biopsy. Unasyn discontinued. We will switch to Augmentin. She will likely need at least 2 weeks of antibiotics for the bacteremia and possibly a longer course of antibiotics for the pulmonary abscess. Aspergillus antigen was negative. Tentative plan for discharge home with home health, case discussed with case preparer and liner Miss Waite.
[2017-12-17] MEDS: NS FLUSH BAG 500ml IV PRN (14:17)
[2017-12-17] MEDS: DiphenhydrAMINE 25 MG CAPSULE PO PRN (17:58)
[2017-12-17] MEDS: ACETAMINOPHEN 325 MG TABLET PO PRN (17:58)
[2017-12-17] MEDS: AMOX/CLAV 875 MG/125 MG TABLET PO SCH (21:05)
[2017-12-18] MEDS: SUCRALFATE 1 GM TABLET PO SCH ×2 (06:00→11:45)
[2017-12-18] MEDS: PANTOPRAZOLE 40 MG TABLET PO SCH (06:00)
[2017-12-18 07:29] VITALS: BP 152/74
[2017-12-18] MEDS: ALBUTEROL/IPRATROPIUM 2.5mg-0.5mg/3ml NEB AEROSOL SCH ×3 (07:31→14:55)
[2017-12-18] MEDS: ACETAMINOPHEN 325 MG TABLET PO PRN (08:13)
[2017-12-18] MEDS: LACTOBACILLUS (15B cfu) CAPSULE PO SCH ×2 (09:44→11:45)
[2017-12-18] MEDS: AMOX/CLAV 875 MG/125 MG TABLET PO SCH (09:44)
[2017-12-18] MEDS: FOLIC ACID 1 MG TABLET PO SCH (09:44)
[2017-12-18] MEDS: FUROSEMIDE 20 MG TABLET PO SCH (09:45)
[2017-12-18] MEDS: MAGNESIUM OXIDE 400 MG TABLET PO SCH (09:45)
[2017-12-18] MEDS: AMLODIPINE 5 MG TABLET PO SCH (09:45)
[2017-12-18] MEDS: CALCIUM 600 + VIT D 400 TABLET PO SCH ×2 (09:49→15:11)
[2017-12-18 09:51] VITALS: TEMP 98.5
[2017-12-18 10:49] VITALS: PULSE 100
[2017-12-18 15:01] VITALS: RESP 18; O2SAT 95
--- NOTE | 2017-12-18 16:02 | Discharge Summary ---
Discharge Information Date of admission: 12/02/17 12:37 Anticipated date of discharge: 12/18/17 Attending Physician: Sea Brantley MD Primary care physician: JOSHUA Brock Consults: 12/02/17 13:40 Physician Consult [CONS] Routine Consulting Provider: Ayaz Kraft Reason For Exam: GI bleed Ordering Provider has Notified Conference Interpreter: No 12/02/17 15:20 Case Management Consult [CONS] Routine Reason For Exam: can we help her with outpt DNR order? 12/06/17 11:12 Physician Consult [CONS] Routine Consulting Provider: Ayaz Holm Reason For Exam: hypoxia, pneumonia, poss pulm abscess Ordering Provider has Notified Conference Interpreter: Yes - Discharge Diagnosis (1) Pneumonia Status: Resolved GI bleed with symptomatic anemia, History of ibuprofen/ASA use. Anemia-address post transfusion of 5 units of blood this hospitalization Thrombocytopenia on admission-resolved post 2 platelet packs Acute hypoxic respiratory failure-resolved Pulmonary edema with fluid overload Bilateral pneumonia with More albicans, resolved Streptococcus mitis/oralis bacteremia on 1 of 2 blood cultures on 12/02/2017- repeat blood cultures negative LLL cavitary lesion-abscess versus necrotic mass stable outpatient follow-up with Dr. Holm Severe pancytopenia and neutropenia -resolved Hypertension Hypokalemia (POA)-resolved Hypomagnesemia (POA) -resolved Hypophosphatemia-resolved Hyperphosphatemia -resolved Hyperglycemia secondary to steroids Sprsmpklsyzw-[id number]-swoafo secondary to recent transfusions Fluid overload resolved Dizziness/Weakness Metastatic lung cancer, sees Dr. Rushing - NSCLCA with chemo. Currently on Carboplatin/Alimta for at least 4 months. 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 Platelets 15 on admission, improved to 108 on the day of discharge WBC count 0.9 on admission, following treatment, elevated as high as 27.7 and thereafter decreased to 5.9 prior to discharge [place] for occult blood 2, positive - Microbiology Microbiology 12/13/17 18:26 Sputum, Expectorated Gram Stain - Final 12/13/17 18:26 Sputum, Expectorated Sputum Culture - Final More albicans Normal Jen 12/05/17 10:37 Port/Picc Blood Culture - Final No Growth After 5 Days 12/05/17 10:38 Port/Picc Blood Culture - Final No Growth After 5 Days 12/02/17 15:39 Peripheral/Iv Start Gram Stain - Final 12/02/17 15:39 Peripheral/Iv Start Blood Culture - Final Streptococcus mitis/oralis 12/02/17 15:31 Peripheral/Iv Start Blood Culture - Final No Growth After 5 Days - Radiology Radiology: CTA of the chest performed on 12/05/2017 IMPRESSION: 1. No CT angiogram evidence of pulmonary embolus. The thoracic aorta is normal caliber showing moderate calcific plaque formation but is not opacified adequately to assess for intimal flap or dissection. 2. Chronic emphysematous lung changes with chronic bronchiectasis and both upper lobes. There are superimposed patchy groundglass opacities in both lung mcconnell as described concerning for acute infiltrate/atelectasis or edema. Recommend close follow-up to ensure resolution. Opportunistic infection is not excluded. 3. There is a 4.7 x 3.3 cm thick-walled cavitary mass in the superior segment of the left lower lobe with an air-fluid level which may be secondary to a pulmonary abscess or infected bulla. The possibility of cavitary malignant involvement of the left lower lobe is not excluded. 4. Small to moderate size bilateral pleural effusions right greater than left. 5. Reactive mediastinal adenopathy. Echocardiogram performed on 12/16/2017 IMPRESSION 1. Normal LV systolic function with ejection fraction of about 60%-65%. 2. Pleural effusion is present. 3. Mitral annulus calcification with mild mitral regurgitation. 4. Mild tricuspid regurgitation with [id number] pulmonary hypertension with estimated pulmonary artery systolic pressure of 43. Renal ultrasound performed on 12/13/2017 Impression: 1. Right kidney failed to show definitive calcified stone in the lower pole as was noted on the old CT study. It showed just slightly more prominent renal pelvis on the left but no significant obstructive uropathy identified in either kidney. No other significant findings appreciated. Repeat CT scan of chest performed on 12/16/2017 Impression: Improving infectious or inflammatory infiltrates in the lungs with stable overall size of the cavitary left lower lobe mass. History of Present Illness HPI: Myra Deanna is an 82 year old woman with lung cancer, diagnosed in 2016. She is on chemotherapy (unknown agent) every 3 weeks, with last round on November 22, 2017. She received a blood transfusion around 11/26/17. She typically feels very wiped out after chemo. Over the last few days, however, she's been more weak and dizzy/lightheaded. She even had to use her walker to ambulate. She was becoming more short of breath with exertion. She also had black-colored diarrhea on 12/03/17. Previously, about a month ago, she had black-colored stools but that resolved after she stopped taking extra iron tablets. She states that she's been having an intermittent occipital headache that is throbbing in nature. She took ibuprofen 600 mg every 3-4 hours on 12/01/17 (usually she takes ibuprofen 600 mg QHS). She states that she recently saw Dr. Rushing and had a brain MRI on 11/22/17, which was negative for acute findings. She also reports anorexia but interestingly has had weight gain. She denies n/v or abdominal pain. She's never had a colonoscopy or EGD. She denies chest pain or palpitations. She denies falls or syncope. She denies sinus congestion, sore throat, cough, dysphagia. She denies fever or chills, body aches or joint pain/ swelling. She denies dysuria or hematuria (though did have hematuria last year and had a right nephrostomy tube for hydronephrosis). She bruises easily with her history of low platelets. Her son and daughter also indicate that she's been slightly confused at times. Because of her increasing weakness, she presented to [facility] [place] [place] ED on 12/02/17. Her hgb was markedly low at 4.7. Platelets were 15K. WBC was only 0.9. She was hypokalemic at 3.0. CXR revealed RUL pneumonia and she was started on Levaquin. Blood transfusion was ordered. She received 2L of NS, and her HR improved from 110 to the 90s. BP was stable. Dr. Feliciano was notified and the patient was admitted to the hospitalist service as an inpatient. LOS is expected to exceed 2 overnights. Objective Vital signs: Temperature 98.5 F 12/18/17 09:50 Pulse Rate 100 12/18/17 09:02 Respiratory Rate 18 12/18/17 14:56 Blood Pressure 140/81 H 12/18/17 07:25 Pulse Oximetry 95 12/18/17 14:56 Height/Weight/BMI: Height 1.63 m Weight 56.4 kg Body Mass Index 22.8 - Additional findings Additional findings: General: Alert, awake, oriented 3. Not in acute distress. Head: Pupils equal, round, reactive to light and accommodation. Extraocular movements intact. No scleral icterus. Neck: No elevation in JVP. No pharyngeal erythema noted. Chest: The patient does not use accessory muscles for breathing. Lungs: Breath sounds audible on auscultation bilateral lung mcconnell. No wheezing , no rhonchi, no crepitations, no crackles. No pleural rub. CVS: S1, S2 heard on auscultation. Normal rate and rhythm. No murmur, no S3/S4 gallops. Abdomen: Soft, nontender, no distention. Bowel sounds appreciated on auscultation. : No flank tenderness, no suprapubic distention or tenderness. Skin: No rashes, no induration, no erythema. Capillary refill less than 4 seconds. Extremities: Trace pedal edema bilateral lower extremities. No calf tenderness bilaterally. Palpable dorsalis pedis and posterior tibial pulses bilateral lower extremities. EDUCATION RN: Strength 5/5 bilateral upper and lower extremities. Sensations intact. No slurred speech, no facial droop. No discernible focal neurological deficits. Hospital Course This is a general summary of the patient's hospital course. For more details refer to the complete medical record. Hospital course: 12/02/17 Admit, inpatient status, under the hospitalist service. GI bleed/tachycardia/symptomatic anemia -2U PRBC, 1 platelet pack, s/p 2L NS in ED, consult Dr. Kraft, hold ibu/ASA, IV PPI RUL pneumonia, immunocompromised/neutropenic -Vancomycin, Levaquin, cefepime - Neutropenic precautions Hypokalemia & Hypomagnesemia -Replace IV -Telemetry Advanced Directives -Daughter & Son are DPOAs -Would like to be DNR in and out- of-hospital. 12/03/17 Hgb 6.1 following 2U PRBC -- transfuse x2 more unit. Plt improved to 22K. ANC 1360 s/p Granix yesterday. Dr. Kraft not recommending procedures at this time but agrees w/ empiric tx for PUD. Will add oral Carafate to IV Protonix. Repeat CXR d/t hypoxia and increased dyspnea. Schedule DuoNeb QID. Cont IS. Wean O2 as able. Continue Vancomycin/Levaquin/cefepime day #2 for pneumonia. K improved to 3.4 - will give add'l oral KDur. Mg up to 1.9. 12/04/17 Hgb improved to 9.2 today Plt back to 16K today s/p Granix 7/6 - monitor for need Dr. Kraft not recommending procedures at this time but agrees w/ empiric tx for PUD. Repeat CXR with increasing RUL airspace disease. Schedule DuoNeb QID. Cont IS. Wean O2 as able. On Vancomycin/Levaquin/cefepime day #3 for pneumonia. Blood cultures with 1/2 enterococcus species - change to vanco and merrem and await susceptibilities K and mag replaced by night staff. Repeat now and replace. Give another dose of lasix with platelets. CXR in am 12/05/17 HGB trending down slowly, but remains above 8- monitor. FOB +. Continue PPI/Carafate- pt declined endoscopy. Slow improvement in leukocytosis, thrombocytopenia- s/p platelet transfusion, continue Granix. Persistent tachycardia, ongoing dyspnea. She did get Lasix yesterday. Will add low dose metoprolol for HR control- BP should support it. Continue telemetry monitoring. Check ECHO in AM. Repeat CXR in AM. Metastatic lung cancer- may need to consider CT if CXR does not improve on current abx therapy. Continue Meropenem. Consult Pharmacy to help with Vanco dosing. BC on admission + for Enterococcus- continue Vanco and await c/s. Follow up BC- NGTD. Continue O2, Nebs, supportive care. SCDs- avoid blood thinners given slow GI blood losses. DNR status noted. 12/06/17 CTA chest done yesterday shows a 4.7 x 3.3 cm thick-walled cavitary mass in the superior segment of the left lower lobe with an air-fluid level which may be secondary to a pulmonary abscess or infected bulla; infiltrates vs. edema; also b/l pleural effusions and chronic lung changes. WBC 12.2. BC + Enterococcus; c/ s pending. Repeat BC NGTD. Continue vancomycin and Merrem. Continue nebs. Consult Dr. Holm. Diet advanced. Hgb stable, 9.3. Poor food intake per RN -- may need to get calorie count if appetite doesn't improve now that it's been advanced. Cont IV PPI. K 3.1, Mg 1.5, Phos 1.6 -- KDur 20 mEq TID (taper as needed); MagOx 800 mg daily ; K-Phos 1000 mg WMHS. Echo done, pending. Tachycardic with elevated BP; increase metoprolol tartrate to 25 mg BID. Consult PT/OT. 12/07/17 Ongoing electrolyte deficiencies - d/t poor tolerance of PO meds will replace K (3.0) & Mg (1.5) IV. Phos improved to 2.9 Echo done: EF 60-65%; mild MR, mild TR, mild-mod PH Remains tachycardic; metoprolol was increased yesterday. Weight is going back up , but clinically appears dry. Oral intake has been poor. She doesn't like the consistency of [place]. May need to resume IVF. WBC 11.5, hgb 8.6. Continue Merrem and vanco for enterococcal bacteremia. Consider ID consult. Repeat BC NGTD. Discussed case with Dr Holm. Dr Holm discussed with patient and family about possible bronch-would like to hold on that for now. He recommends trial of steroids to see if will help-will start Solu-Medrol 125mg IV q 6 hours. Replace Mg and potassium IV secondary to tolerability with oral - will place oral potassium on hold. As BP elevated, will start low dose lisinopril 5mg nightly to help BP and preserve potassium. 12/08/17 Hypokalemia- Resume home PO potassium Continue on K-Phos and Mag ox for PO supplementation Continue Merrem and Vanco for enterococcal bacteremia. Recommendations 5-7 days of IV tx from negative blood cultures Hgb remains stable. Continue on PO Carafate 12/09/17 Hypokalemia, 2.3 -- replace IV Mag 1.5 -- increase MagOx to BID DC KPhos -- recheck in am along with BMP, Mg BC results have been updated: strep mitis/oralis, sensitive to vanco. Cont Merrem as well. Would prefer to diurese d/t weight gain and overall increase in O2 needs, but with low K will check CXR first. Pt opting for conservative treatment - not wanting bronch. Dr. Holm ordered aspergillus ag. Hgb decreased to 7.3; repeat in am. WBC elevated - suspect steroids. 12/10/17 Continued Hypokalemia, 2.8. Replace both IV and orally -- replace IV Magnesium improved to 2.1. BC results have been updated: strep mitis/oralis, sensitive to vanco. Cont Merrem as well. Appreciate consultation with Dr Holm Hgb remains low however is stable at decreased to 7.3 Continue to follow Leukocytosis- up to 18 today; likely steroid induced 12/11/2017 Hemoglobin is stable. White count is up today, likely secondary to steroids. No fevers. Hypokalemia has improved after IV and oral potassium. Basic metabolic today is mildly hemolyzed. Recheck basic metabolic profile this afternoon Recent wheezing today, weight is up 10 kg likely secondary to fluid overload. Start IV Lasix. Check chest x-ray and BNP today. Decrease IV steroids and monitor Monitor Accu-Cheks and give sliding scale insulin regarding hyperglycemia Check ionized calcium in the morning check PTH and vitamin D levels. Patient started on oral calcium and vitamin D 3 times a day. Discussed with Dr. Holm. Patient may benefit from bronchoscopy early this week if not improving. The patient states she is considering this procedure if she is not improving by then. She is currently on Merrem and vancomycin for pneumonia. One of 2 blood cultures on admission positive for strep mitis. Repeat blood cultures negative. 12/12/2017 Hemoglobin is stable. White count is up today, likely secondary to steroids. No fevers. Because of fluid overload, patient was given Lasix 40 mg IV yesterday with good urine output. Weight is down 1.2 kg today. She still overall about 8 kg up from admission and does have edema. CTA chest done earlier this week showed questionable pulmonary edema. Regarding acute kidney injury, creatinine today is 1.7. Baseline is 0.8. She did have an elevated Vanco trough 2 days ago. Vancomycin has been discontinued. Discussed with nephrology, will continue off of vancomycin. Avoid nephrotoxins. Okay to continue cautious diuresis since she is having pulmonary edema. Unasyn was started yesterday for questionable pulmonary abscess and one of 2 initial blood cultures positive for strep mitis. Discussed with infectious disease specialist. She stated another option would be Rocephin oral clindamycin for at least 2 weeks. The patient had previously received Levaquin for 2 days and then meropenem 12/04/2017 through 12/11/2017. She was on vancomycin from 12/02/2017 through 12/11/2017. We'll do a rapid taper of steroids. The patient is asymptomatic regarding hypocalcemia, continue oral calcium and vitamin D. PTH and vitamin D level still pending. 12/13/17 Continue to work on gentle diuresing of Lasix 40 mg daily. Weight is up 8Kg since admission. Encourage Moe hose to BLE and elevation of upper extremities Recommended decreasing salt intake as she is eating a lot of peanuts at the bedside Continue to follow renal function- Avoid nephrotoxins. Vanco stopped and changed to Unasyn IV for antimicrobial coverage Encouraged nutritional supplementation Monitor hypocalcemia. Currently on PO calcium and Vit D. Labs pending. Hgb remains stable at 7.3 and PLT count increased at 117 12/14/2017 White count continues to trend up. Steroids were tapered down and her last dose was yesterday. She has not had any fever or significant bandemia. Chest x-ray shows improvement in probable pulmonary edema. She continues on Unasyn for strep oralis bacteremia and left lower lobe cavitary lung lesion. ProCalcitonin is normal. C-reactive protein is slightly elevated at 20-no previous for comparison. Regarding fatigue, vital signs are stable. Will check magnesium and phosphorus. Fatigue may be in part secondary to discontinuation of steroids. We'll monitor. Renal function is improving. Regarding fluid overload and low albumin, will give IV albumin followed by Lasix 2 today. The patient was started on a low salt diet and fluid restriction yesterday. Hemoglobin is stable and platelets are improving. Pulmonary edema has resolved and she is on room air. Continue nutritional supplements for malnutrition and hypoalbuminemia Sliding scale insulin as needed for hyperglycemia secondary to steroids. Blood sugar should improve off of steroids. 12/15/2017 Overall, the patient appears to be improving. She diuresed very well with albumin and Lasix 2 yesterday. Diuretics were then discontinued. Unfortunately, creatinine did bump up from 1.5-1.8. She continues to have good urine output today. I will discontinue fluid restriction. We'll continue to hold diuretics today. We'll recheck renal panel tomorrow. White blood cell count is now down after discontinuation of steroids. CT chest tomorrow morning without contrast to follow-up on necrotic mass versus abscess Continue Unasyn for probable pulmonary abscess and for strep mitis bacteremia. When she is ready for discharge, could switch to Augmentin. She will likely need at least 2 weeks of antibiotics for the bacteremia and possibly a longer course of antibiotics for the pulmonary abscess. Aspergillus antigen was negative. Discontinue blood sugar monitoring and sliding scale insulin. We'll ask PT to give recommendations regarding whether or not the patient is stable for dismissal to home with home health versus needing half-way versus inpatient rehabilitation Did talk with the patient's oncologist, Dr. Rushing yesterday. He would like to follow-up with her as an outpatient and she will likely need a PET scan. Discussed findings with the patient and her daughter at length today. Change Protonix to by mouth 12/16/2017 Diuretic medication held for now, patient has had -2.3 L fluid balance with 2 KG weight loss from yesterday. We will start Lasix 20 mg by mouth every morning from tomorrow. Serum creatinine improved slightly to 1.7 compared to 1.8 yesterday. Overall, the patient appears to be improving. She continues to have good urine output today. We'll continue to hold diuretics today. We'll recheck renal panel tomorrow. White blood cell count is now down after discontinuation of steroids. CT chest today shows stable left lower lobe cavitary lesion and improving bilateral infiltrates. Case discussed with Dr. Holm, plan to switch to oral Augmentin tomorrow and thereafter tentative plan for discharge. Dr. Holm would like to see patient as an outpatient in 2 weeks and thereafter repeat CT scan and decide regarding CT-guided biopsy. Continue Unasyn for probable pulmonary abscess and for strep mitis bacteremia. When she is ready for discharge, could switch to Augmentin. She will likely need at least 2 weeks of antibiotics for the bacteremia and possibly a longer course of antibiotics for the pulmonary abscess. Aspergillus antigen was negative. We'll ask PT to give recommendations regarding whether or not the patient is stable for dismissal to home with home health versus needing half-way versus inpatient rehabilitation 12/17/2017 Patient has had -2.5 L fluid balance with 1.3 KG weight loss from yesterday. Continue Lasix 20 mg by mouth every morning. Hemoglobin dropped down to 6.9 this morning when compared to 8 yesterday. We will type, cross match and transfuse 1 unit of it radiated, [place] reduced PRBCs. We will recheck H&H 1 hour posttransfusion. Serum creatinine 1.8. Overall, the patient appears to be improving. She continues to have good urine output today. We'll continue to hold diuretics today. We'll recheck renal panel tomorrow. WAC: [address] chest repeated on 12/16/2017 shows stable left lower lobe cavitary lesion and improving bilateral infiltrates. Case discussed with Dr. Holm, plan to switch to oral Augmentin today and thereafter tentative plan for discharge. Dr. Holm would like to see patient as an outpatient in 2 weeks and thereafter repeat CT scan and decide regarding CT-guided biopsy. Unasyn discontinued. We will switch to Augmentin. She will likely need at least 2 weeks of antibiotics for the bacteremia and possibly a longer course of antibiotics for the pulmonary abscess. Aspergillus antigen was negative. Tentative plan for discharge home with home health, case discussed with disease case manager rn Miss Waite. 12/18/2017 Patient resting in bed, patient's daughter present at bedside. Subjectively, improved. No new complaints. Hemoglobin 8.9 today when compared to 6.9 yesterday. Status post transfusion of 1 unit of PRBC. Patient has -2 L fluid balance today. Case discussed with disease case manager rn, home health arranged for patient on discharge. Time spent with patient: discharge greater than 30 minutes Resuscitation Status: Do Not Resuscitate Discharge Plan - Discharge Disposition Disposition: 86 Home Health Service *Condition: Stable Reason For Visit (Visit label in EMR): pancytopenia/pnuemonia - Discharge Medications *Discharge Medications: New Acidoph/L.bulg/Bif.b/S.thermop [Bacid Caplet] 2 cap PO TIDWM #42 tab Metoprolol Tartrate [Lopressor] 25 mg PO BIDWM #60 tab Potassium Chloride [K-DUR 20 mEq Tablet] 20 meq PO WB #7 tab Amoxicillin/Potassium Clav [Amox-Clav 875-125 mg Tablet] 875 mg PO Q12HR #28 tab Amlodipine [Norvasc] 5 mg PO DAILY #30 tab Continue folic acid 1 mg tablet 1 mg PO DAILY No Action Amlodipine [Norvasc] 2.5 mg PO DAILY - Discharge Packet/Instructions *Diet: Low salt *Activity: As Tolerated. *Pain Management/Treatment: Take Tylenol 500 mg every 6 hours as needed for pain *Wound Care: Not Applicable *Expected Signs/Symptoms: Continued improvement *Notify Physician if: Patient has chest pain, palpitations, fever greater than 101F, shortness of breath, intractable nausea, vomiting, abdominal pain, diarrhea, dizziness, syncope/near syncope or any other concerning findings. *During Business Hours Contact: Contact primary care provider office *After Business Hours Contact: Call [facility] at [phone] and ask that the on-call physician be paged *Pending Lab/Results: No Pending Lab - Referrals/Follow Up *Referrals/Follow Up: Ayaz Holm MD [Physician] - Jackelyn Horton PA [Primary Care Provider] - - Patient Handouts Patient Handouts: Pneumonia (GEN), Pancytopenia (GEN) - Dismissal Complete Discharge Instructions are:: Complete Physician Narrative - Narrative Attestation Narrative: Date: 12/18/17 Time: [id number]
--- NOTE | 2017-12-20 11:30 | Right on Track Program ---
Right on Track Program Date of Discharge: 12/18/17 Home Medications: Home Medications Medication Instructions Recorded Confirmed folic acid 1 mg tablet 1 mg PO DAILY 07/29/17 12/02/17 Amlodipine [Norvasc] 2.5 mg PO DAILY 12/03/17 12/03/17 Previous Rx's Medication Instructions Recorded Acidoph/L.bulg/Bif.b/S.thermop 2 cap PO TIDWM #42 tab 12/18/17 [Bacid Caplet] Amlodipine [Norvasc] 5 mg PO DAILY #30 tab 12/18/17 Amoxicillin/Potassium Clav 875 mg PO Q12HR #28 tab 12/18/17 [Amox-Clav 875-125 mg Tablet] Metoprolol Tartrate [Lopressor] 25 mg PO BIDWM #60 tab 12/18/17 Potassium Chloride [K-DUR 20 mEq 20 meq PO WB #7 tab 12/18/17 Tablet] - Right on Track Program Phone call Date: 12/20/17 Right on Track Program: 24 Hour Follow-Up Discharge Summary Received: Yes Care Plan Received: Yes Follow Up: Follow Up Appointment Scheduled Referral: Primary Care Physician Comments: I spoke with Myra on 12/20/17. She reports that she is doing quite well and her breathing is fine. She was able to get all her Rx filled. She has no questions on her discharge instructions and has f/u already planned. I offered a face to face visit but she politely declined, stating that she feels like she' s doing so well. She did agree to weekly phone calls by CM. Recommendations For Follow-up: F/U with PCP/specialists as planned. Continue to follow with weekly phone calls via CM dept. - Problems (1) Pneumonia Qualifiers: Pneumonia type: due to unspecified organism Laterality: right Lung location: upper lobe of lung Qualified Code(s): J18.1 - Lobar pneumonia, unspecified organism Code(s): J18.9 - Pneumonia, unspecified organism Status: Resolved
== END 2017-12-18 16:50 | disposition home health service (06) | DRG 177 ==
LOC: ED 10:55 → EDHOLD 12:37 → SUATTDRO 12:37 → MED 13:40
PROVIDERS: ADMIT Hospitalist; ATTEND Internal Medicine